=== PATIENT | male | born 1980 | race Two or more races ===

== ENCOUNTER 2019-09-07 20:40 | Emergency (ER) | payer SELFPAY ==
[~2019-09-07] VITALS: Ht 172.7 cm; Wt 81.6 kg
[2019-09-07 21:00] VITALS: BP 126/79
== END 2019-09-07 21:04 ==
LOC: ER 20:42
DX: F10.129 Alcohol abuse with intoxication, unspecified (principal); Y90.9 Presence of alcohol in blood, level not specified

== ENCOUNTER 2024-07-29 09:34 | Inpatient (IN) | payer MEDICAID ==
[~2024-07-29] VITALS: Ht 175.3 cm; Wt 64.6 kg
[~2024-07-29 09:34] MED LIST: INSU100I70 SC; INSU70IN3 SC
[2024-07-29] MEDS: InsuLIN REG 1unit/0.01ml Soln (100units/ml) IV ONE (10:15)
[2024-07-29] MEDS ORDERED: DEXTROSE (50%) 50ML SYRG IV PRN ×2 (10:15→17:00)
[2024-07-29] MEDS: SODIUM CHLORIDE 0.9% 1,000 ML IV ONE (10:26)
[2024-07-29] MEDS: ACCU-CHEK COMFORT CURVE STRIP VI SCH ×2 (10:30→18:26)
[2024-07-29] MEDS: PROCHLORPERAZINE EDISYLATE 5 MG/ML 2ML VIAL IV ONE (10:36)
[2024-07-29] MEDS: PANTOPRAZOLE 40 MG/10 ML VIAL INJ IV ONE ×2 (10:36→17:00)
[2024-07-29 10:45] VITALS: PULSE 96; RESP 17; O2SAT 100
[2024-07-29 10:55] LABS: Chloride 92 mmol/L (98-107); Sodium 128 mmol/L (136-145)
[2024-07-29 10:56] LABS: Anion Gap 26.00001 (5-15); Calcium 9.7 mg/dL (8.7-10.4)
[2024-07-29 11:01] LABS: BUN/Creatinine Ratio 9.2 (10.0-20.0); Blood Alcohol < 3.0 mg/dL (<10); Blood Urea Nitrogen 21 mg/dL (9-23)
[2024-07-29] MEDS: INSULIN LANTUS (GLARGINE) 1 /0.01ml (100units/ml) SC ONE (11:04)
[2024-07-29] MEDS: INSULIN DRIP 100 UNIT/100ML 100 ML IV SCH (11:04)
[2024-07-29 11:32] LABS: Hematocrit 54.4 % (41.0-53.0); Hemoglobin 16.5 g/dL (13.5-17.5); Mean Corpuscular Hemoglobin 30.9 pg (28.0-32.0); Mean Corpuscular Hgb Conc. 30.3 g/dL (32.0-36.0); Mean Corpuscular Volume 101.9 fL (80.0-100.0); Platelet Count (auto) 330 10^3/uL (140-450); Red Blood Cells 5.34 10^6/uL (4.5-5.90); Red Cell Distribution Width 15.2 % (11.8-14.3); White Blood Cell 26.3 10^3/uL (4.4-10.8)
[2024-07-29 11:35] LABS: Basophils % (manual) 0 (0.0-2.0); Blast Cells 0; Eosinophils % (manual) 0 (0-7); Metamyelocytes % 0; Myelocytes % 0; Promyelocytes % 0; Reactive Lymphocytes 0
[2024-07-29 11:46] LABS: Carbon Dioxide < 10 mmol/L (20-30); Potassium 5.6 mmol/L (3.5-5.1)
[2024-07-29 11:47] LABS: Glucose 727 mg/dL (74-106)
[2024-07-29 12:08] LABS: Band Neutrophils % (manual) 5; Lymphocytes % (manual) 20 (10.0-50.0); Monocytes % (manual) 7 (0-12); Platelet Estimate Adequate
[2024-07-29 16:13] LABS: Urine Bacteria None Seen /hpf (None Seen)
[2024-07-29 16:29] LABS: Urine Blood 1+ /uL (Negative); Urine Clarity Clear (Clear); Urine Color Light-Yellow (Yellow); Urine Mucus FEW (None Seen); Urine Protein, UAD 1+ (Negative); Urine Specific Gravity 1.018 (1.001-1.035); Urine Urobilinogen Normal (Negative); Urine WBC 5 /hpf (0 - 3)
[2024-07-29 16:35] LABS: Amphetamine Screen, Urine Neg (NEGATIVE); Barbiturate Scree,Urine Neg (NEGATIVE); Benzodiazephine Screen, Urine Neg (NEGATIVE); Cocaine Screen, Urine Neg (NEGATIVE)
[2024-07-29 16:37] LABS: Cannabinoid Screen, Urine Neg (NEGATIVE); Opiate Scree,Urine Neg (NEGATIVE); Phencyclidine Screen, Urine Neg (NEGATIVE)
[2024-07-29] MEDS: ONDANSETRON HCL 4 MG/2 ML VIAL IV ONE (16:41)
[2024-07-29] MEDS ORDERED: NITROGLYCERIN 0.4 MG SL TAB SL PRN (17:00)
[2024-07-29] MEDS ORDERED: MORPHINE SULFATE INJ 2 MG/ml SYRG IV PRN (17:00)
[2024-07-29] MEDS ORDERED: DOCUSATE SOD 100 MG CAP PO PRN (17:00)
[2024-07-29] MEDS ORDERED: TEMAZEPAM 15 MG CAP PO PRN (17:00)
[2024-07-29] MEDS: SODIUM CHLORIDE 0.9% 1,000 ML IV SCH ×3 (17:30→23:28)
[2024-07-29 17:42] LABS: Base Excess -14.8 mmol/L (-2.0-3.0)
[2024-07-29] MEDS: PIPERACILLIN-TAZOB 3.375GM 100 ML IV ONE (18:35)
[2024-07-29 19:15] LABS: Basophils # (auto) 0 10 ^3/uL (0-0.2); Basophils % (auto) 0.2 % (0.0-2.0); Eosinophils # (auto) 0 10 ^3/uL (0-0.8); Hematocrit 46.1 % (41.0-53.0); Hemoglobin 15.4 g/dL (13.5-17.5); Lymphocytes # (auto) 2.6 10 ^3/uL (0.4-5.4); Lymphocytes % (auto) 10.6 % (10.0-50.0); Mean Corpuscular Hemoglobin 30.5 pg (28.0-32.0); Mean Corpuscular Hgb Conc. 33.5 g/dL (32.0-36.0); Monocytes # (auto) 2.3 10 ^3/uL (0-1.3); Monocytes % (auto) 9.1 % (0.0-12.0); Neutrophils % (auto) 80.1 % (37.0-80.0); Platelet Count (auto) 288 10^3/uL (140-450); Red Blood Cells 5.06 10^6/uL (4.5-5.90); Red Cell Distribution Width 13.5 % (11.8-14.3); White Blood Cell 24.9 10^3/uL (4.4-10.8)
[2024-07-29 19:18] LABS: Anion Gap 18 (5-15); Carbon Dioxide 11 mmol/L (20-30); Potassium 4.2 mmol/L (3.5-5.1)
[2024-07-29 19:19] LABS: Calcium 9.5 mg/dL (8.7-10.4)
[2024-07-29 19:24] LABS: BUN/Creatinine Ratio 20.5 (10.0-20.0); Blood Alcohol < 3.0 mg/dL (<10); Magnesium 2.3 mg/dL (1.6-2.6)
[2024-07-29 19:26] LABS: Phosphorus 1.2 mg/dL (2.4-5.1)
[2024-07-29 19:33] LABS: Blood Urea Nitrogen 36 mg/dL (9-23); Chloride 107 mmol/L (98-107); Glucose 315 mg/dL (74-106); Sodium 136 mmol/L (136-145)
[2024-07-29] MEDS: FOLIC ACID 1 MG, MAGNESIUM SULF SDV 50% 8 MEQ, MULTIPLE VITAMIN 10 ML, THIAMINE INJ 100... INJ SCH (20:00)
[2024-07-29 20:05] LABS: Creatinine, Urine 34.85 mg/dL (30.0-125.0)
[2024-07-29] MEDS: ONDANSETRON HCL 4 MG/2 ML VIAL IV PRN (20:44)
[2024-07-29 20:45] VITALS: PULSE 130; RESP 18; O2SAT 96
[2024-07-29] MEDS: PANTOPRAZOLE 40 MG/10 ML VIAL INJ IV SCH (22:51)
[2024-07-29 23:29] LABS: Chloride 111 mmol/L (98-107); Potassium 4.3 mmol/L (3.5-5.1); Sodium 140 mmol/L (136-145)
[2024-07-29 23:30] LABS: Anion Gap 12 (5-15); Carbon Dioxide 17 mmol/L (20-30)
[2024-07-29 23:35] LABS: BUN/Creatinine Ratio 19.4 (10.0-20.0); Blood Urea Nitrogen 30 mg/dL (9-23); Glucose 237 mg/dL (74-106)
[2024-07-29] MEDS: PIPERACILLIN-TAZOB 3.375GM 100 ML IV SCH (23:56)
[2024-07-30 04:23] LABS: Basophils # (auto) 0 10 ^3/uL (0-0.2); Basophils % (auto) 0.2 % (0.0-2.0); Eosinophils # (auto) 0 10 ^3/uL (0-0.8); Eosinophils % (auto) 0.1 % (0.0-7.0); Hematocrit 43.7 % (41.0-53.0); Hemoglobin 14.5 g/dL (13.5-17.5); Lymphocytes # (auto) 1.8 10 ^3/uL (0.4-5.4); Lymphocytes % (auto) 9.6 % (10.0-50.0); Mean Corpuscular Hemoglobin 30.9 pg (28.0-32.0); Mean Corpuscular Hgb Conc. 33.1 g/dL (32.0-36.0); Mean Corpuscular Volume 93.2 fL (80.0-100.0); Neutrophils # (auto) 14.6 10 ^3/uL (1.6-8.6); Neutrophils % (auto) 79.1 % (37.0-80.0); Platelet Count (auto) 214 10^3/uL (140-450); Red Blood Cells 4.69 10^6/uL (4.5-5.90); Red Cell Distribution Width 13.8 % (11.8-14.3); White Blood Cell 18.4 10^3/uL (4.4-10.8)
[2024-07-30 04:37] LABS: Alanine Aminotransferase 56 U/L (7-40); Albumin 3.7 g/dL (3.2-4.8); Alkaline Phosphatase 111 U/L (46-116); Anion Gap 5 (5-15); Aspartate Aminotransferase 39 U/L (13-40); Bilirubin, Total 0.4 mg/dL (0.2-1.0); Blood Urea Nitrogen 27 mg/dL (9-23); Calcium 8.3 mg/dL (8.7-10.4); Carbon Dioxide 22 mmol/L (20-30); Chloride 116 mmol/L (98-107); Glucose 155 mg/dL (74-106); Potassium 4.2 mmol/L (3.5-5.1); Sodium 143 mmol/L (136-145); Total Protein 6.6 g/dL (5.7-8.2)
[2024-07-30 07:30] VITALS: PULSE 87; RESP 12; O2SAT 98
[2024-07-30] MEDS: InsuLIN REG 1unit/0.01ml Soln (100units/ml) SC SCH (08:00)
[2024-07-30] MEDS: ACCU-CHEK COMFORT CURVE STRIP VI SCH (08:06)
[2024-07-30] MEDS: INSULIN LANTUS (GLARGINE) 1 /0.01ml (100units/ml) SC SCH (11:03)
[2024-07-30 11:19] LABS: Chloride 115 mmol/L (98-107); Potassium 3.9 mmol/L (3.5-5.1); Sodium 144 mmol/L (136-145)
[2024-07-30 11:20] LABS: Anion Gap 8 (5-15); Calcium 8.8 mg/dL (8.7-10.4); Carbon Dioxide 21 mmol/L (20-30)
[2024-07-30 11:25] LABS: Glucose 156 mg/dL (74-106)
[2024-07-30 11:26] LABS: BUN/Creatinine Ratio 26.2 (10.0-20.0); Blood Urea Nitrogen 28 mg/dL (9-23)
[2024-07-30 12:09] LABS: INR 0.95 (0.9-1.15); Partial Thromboplastin Time 23.3 SEC (24.5-34.5); Prothrombin Time 10.1 sec (9.3-11.8)
[2024-07-30 15:29] LABS: Hematocrit 38.3 % (41.0-53.0); Hemoglobin 13.2 g/dL (13.5-17.5)
[2024-07-30 19:30] VITALS: PULSE 72; RESP 12; O2SAT 100
[2024-07-30 21:36] VITALS: BP 102/51; PULSE 75; TEMP 98.3; O2SAT 99
[2024-07-30] MEDS: SUCRALFATE 1 GM/10 ML ORAL SUSP PO SCH (22:55)
[2024-07-31] VITALS (9 sets, daily range): BP systolic 108–141; BP diastolic 61–85; PULSE 56–75; RESP 14–20; TEMP 97.7–98.6; O2SAT 97–98
[2024-07-31] MEDS ORDERED: NALOXONE HCL 0.4 MG/ML VIAL ONE (13:48)
[2024-07-31] MEDS ORDERED: FLUMAZENIL 0.1 MG/ML INJ 10ML MDV IV ONE (13:49)
[2024-07-31] MEDS ORDERED: fentaNYL CITRATE 100 MCG/2 ML VL ONE ×2 (13:50→13:51)
[2024-07-31] MEDS ORDERED: SIMETHICONE 40 MG/0.6 ML ORAL DROP ONE (13:52)
[2024-07-31] MEDS ORDERED: SODIUM CHLORIDE LOCK 10 ML ONE (13:52)
[2024-07-31] MEDS ORDERED: LIDOCAINE VISCOUS 2% 15ML UD ONE (13:52)
[2024-07-31] MEDS: MIDAZOLAM HCL 5 MG/ML-1ML VIAL ONE (14:02)
[2024-07-31] MEDS: fentaNYL CITRATE 100 MCG/2 ML VL ONE (14:02)
[2024-07-31] MEDS: diphenhdrAMINE HCL 50 MG/1 ML VL ONE (14:02)
[2024-07-31] MEDS: NYSTATIN (MOUTH-THROAT) 500,000 UNITS/5 ML SUSP MT SCH (18:00)
[2024-08-01] VITALS (8 sets, daily range): BP systolic 113–140; BP diastolic 63–87; PULSE 60–90; RESP 16–18; TEMP 98–99.2; O2SAT 97–99
[2024-08-01 06:48] LABS: Alanine Aminotransferase 38 U/L (7-40); Alkaline Phosphatase 86 U/L (46-116); Anion Gap 10 (5-15); BUN/Creatinine Ratio 16.1 (10.0-20.0); Calcium 7.9 mg/dL (8.7-10.4); Carbon Dioxide 21 mmol/L (20-30); Chloride 106 mmol/L (98-107); Glucose 203 mg/dL (74-106); Potassium 2.9 mmol/L (3.5-5.1); Sodium 137 mmol/L (136-145)
[2024-08-01 06:49] LABS: Aspartate Aminotransferase 44 U/L (13-40); Total Protein 5.2 g/dL (5.7-8.2)
[2024-08-01 06:50] LABS: Blood Urea Nitrogen 9 mg/dL (9-23)
[2024-08-01 07:07] LABS: Basophils # (auto) 0 10 ^3/uL (0-0.2); Basophils % (auto) 0.4 % (0.0-2.0); Eosinophils # (auto) 0.1 10 ^3/uL (0-0.8); Eosinophils % (auto) 1.6 % (0.0-7.0); Hematocrit 32.5 % (41.0-53.0); Hemoglobin 11.7 g/dL (13.5-17.5); Lymphocytes # (auto) 2.8 10 ^3/uL (0.4-5.4); Lymphocytes % (auto) 32.4 % (10.0-50.0); Mean Corpuscular Hemoglobin 32.2 pg (28.0-32.0); Mean Corpuscular Hgb Conc. 36.2 g/dL (32.0-36.0); Mean Corpuscular Volume 89.1 fL (80.0-100.0); Monocytes # (auto) 0.7 10 ^3/uL (0-1.3); Neutrophils # (auto) 4.9 10 ^3/uL (1.6-8.6); Neutrophils % (auto) 57.6 % (37.0-80.0); Platelet Count (auto) 150 10^3/uL (140-450); Red Blood Cells 3.64 10^6/uL (4.5-5.90); Red Cell Distribution Width 13.3 % (11.8-14.3); White Blood Cell 8.6 10^3/uL (4.4-10.8)
[2024-08-01] MEDS: POTASSIUM EFFERVESENT TAB 25 MEQ GT ONE (12:22)
[2024-08-01] MEDS: THIAMINE HCL 100 MG TAB PO ONE (18:32)
[2024-08-01] MEDS: FOLIC ACID 1 MG TAB PO ONE (18:32)
[2024-08-01] MEDS: MAGNESIUM OXIDE 400 MG TAB PO ONE (18:32)
[2024-08-01] MEDS: MULTIPLE VITAMIN TAB PO ONE (18:32)
[2024-08-02] VITALS (7 sets, daily range): BP systolic 109–127; BP diastolic 64–84; PULSE 55–63; RESP 15–20; TEMP 97.5–99.3; O2SAT 94–99
[2024-08-02 07:00] LABS: Basophils # (auto) 0 10 ^3/uL (0-0.2); Basophils % (auto) 0.7 % (0.0-2.0); Eosinophils # (auto) 0.2 10 ^3/uL (0-0.8); Eosinophils % (auto) 3.6 % (0.0-7.0); Hemoglobin 12.8 g/dL (13.5-17.5); Lymphocytes # (auto) 2.6 10 ^3/uL (0.4-5.4); Mean Corpuscular Hgb Conc. 34.6 g/dL (32.0-36.0); Mean Corpuscular Volume 89.5 fL (80.0-100.0); Monocytes # (auto) 0.7 10 ^3/uL (0-1.3); Monocytes % (auto) 9.9 % (0.0-12.0); Neutrophils # (auto) 3.1 10 ^3/uL (1.6-8.6); Neutrophils % (auto) 46.8 % (37.0-80.0); Nucleated Red Blood Cells % 0.1 %; Platelet Count (auto) 168 10^3/uL (140-450); Red Blood Cells 4.13 10^6/uL (4.5-5.90); Red Cell Distribution Width 13.3 % (11.8-14.3); White Blood Cell 6.7 10^3/uL (4.4-10.8)
[2024-08-02 07:25] LABS: Alanine Aminotransferase 33 U/L (7-40); Alkaline Phosphatase 87 U/L (46-116); Anion Gap 8 (5-15); Aspartate Aminotransferase 24 U/L (13-40); BUN/Creatinine Ratio 9.2 (10.0-20.0); Blood Urea Nitrogen 6 mg/dL (9-23); Calcium 8.5 mg/dL (8.7-10.4); Carbon Dioxide 27 mmol/L (20-30); Chloride 104 mmol/L (98-107); Glucose 206 mg/dL (74-106); Sodium 139 mmol/L (136-145)
[2024-08-02 07:26] LABS: Bilirubin, Total 1.1 mg/dL (0.2-1.0); Total Protein 5.5 g/dL (5.7-8.2)
[2024-08-02 10:14] LABS: Hepatitis B Surface Antigen Negative (Negative)
[2024-08-02 10:37] LABS: Hepatitis C Antibody Negative (Negative)
[2024-08-02] MEDS: MAGNESIUM OXIDE 400 MG TAB PO SCH (10:54)
[2024-08-02] MEDS: THIAMINE HCL 100 MG TAB PO SCH (10:54)
[2024-08-02] MEDS: MULTIPLE VITAMIN TAB PO SCH (10:54)
[2024-08-02] MEDS: FOLIC ACID 1 MG TAB PO SCH (10:54)
[2024-08-02] MEDS ORDERED: PANT40T PO (11:00)
[2024-08-02] MEDS ORDERED: FOLI-119 PO (11:00)
[2024-08-02] MEDS ORDERED: SUCR1TAB31 PO (11:00)
[2024-08-02] MEDS ORDERED: THIA100T13 PO (11:00)
[2024-08-02] MEDS: POTASSIUM EFFERVESENT TAB 25 MEQ PO ONE (14:13)
== END 2024-08-02 17:00 | disposition home or self-care (01) | DRG 720 ==
LOC: ER 09:42 → TELE 17:07 → TELE-EAST 07-30 21:36
PROVIDERS: ADMIT Nurse Practitioner Family; ATTEND Family Medicine
PROC: 0DB68ZX Excision of Stomach, Via Natural or Artificial Opening Endoscopic, Diagnostic (ICD-10-PCS; 2024-07-31)
PROC: 0DB38ZX Excision of Lower Esophagus, Via Natural or Artificial Opening Endoscopic, Diagnostic (ICD-10-PCS; 2024-07-31)
PROC: 0DB98ZX Excision of Duodenum, Via Natural or Artificial Opening Endoscopic, Diagnostic (ICD-10-PCS; principal; 2024-07-31 13:59)
DX: A41.9 Sepsis, unspecified organism (principal); E11.11 Type 2 diabetes mellitus with ketoacidosis with coma; J69.0 Pneumonitis due to inhalation of food and vomit; N17.9 Acute kidney failure, unspecified; K22.11 Ulcer of esophagus with bleeding; K29.71 Gastritis, unspecified, with bleeding; E87.6 Hypokalemia; E86.0 Dehydration; K44.9 Diaphragmatic hernia without obstruction or gangrene; F10.129 Alcohol abuse with intoxication, unspecified; K31.9 Disease of stomach and duodenum, unspecified; Z79.899 Other long term (current) drug therapy; Z79.4 Long term (current) use of insulin; Y90.0 Blood alcohol level of less than 20 mg/100 ml
CPT/HCPCS: 36415; 36600; 43239; 74176; 76700; 80048; 80053; 80307; 80320; 81001; 82010; 82140; 82570; 82607; 82805; 82962; 83036; 83605; 83735; 83930; 83935; 84100; 84300; 85007; 85014; 85018; 85025; 85027; 85610; 85730; 86803; 87340; 99291; G0378; J1815; J2250; J2405; J2470; J2543

== ENCOUNTER 2025-01-21 03:55 | Inpatient (IN) | payer MEDICAID ==
[2025-01-21] VITALS (10 sets, daily range): BP systolic 119–140; BP diastolic 69–89; PULSE 100–128; RESP 15–19; TEMP 98.9; O2SAT 94–100
[~2025-01-21] VITALS: Ht 205.7 cm; Wt 63.5 kg
[~2025-01-21 03:55] MED LIST changes: +FOLI-119 PO; +PANT40T PO; +SUCR1TAB31 PO; +THIA100T13 PO
--- NOTE | 2025-01-21 04:27 | ED.PDOC ---
History of Present Illness HPI Comments 44 y/o M, with a history of DM and DKA, is BIBA for c/o nausea, vomiting, and generalized weakness, today. Per EMS report, patient's family called on his behalf after endorsement of symptoms since 1200, yesterday. Patient was stated to have been found with a blood glucose of 596 and tachycardic on scene. He admits to using insulin to manage his DM, with last intake being yesterday. Patient denies having any abdominal pain, hematemesis, diarrhea, urinary symptoms, fever, chills, or other associated symptoms or modifiers at this time. Chief Complaint: Nausea/Vomiting Time Seen by MD: 04:00 Reviewed Notes: Nurses Notes, Medications, Allergies Allergies: Coded Allergies: No Known Drug Allergy (Unverified Allergy, Unknown, 08/05/23) Home Meds Active Scripts Folic Acid (Folic Acid) 1 Mg Tab, 1 MG PO DAILY, #30 TAB Prov:JOHNNA NAVARRO MD 08/02/24 Thiamine HCl (Thiamine Hydrochloride) 100 Mg Tab, 100 MG PO DAILY, #30 TAB Prov:JOHNNA NAVARRO MD 08/02/24 Sucralfate (CARAFATE) 1 Gm Tab, 1 GM PO QID, #120 TAB Prov:JOHNNA NAVARRO MD 08/02/24 Pantoprazole Sodium Sesquihydr (Pantoprazole Sodium) 40 Mg Tab, 40 MG PO BID, #60 TAB Prov:JOHNNA NAVARRO MD 08/02/24 Reported Medications Insulin Glargine-Yfgn (Insulin Glargine) 100 Unit/Ml Inj, 16 UNIT SC HS, INJ 08/09/23 Insulin NPH Isophane & Reg (Hu (Novolin 70/30 (70-30) 100 Unit/ml) 1 Inj Inj, 10 UNIT SC BID, INJ 08/09/23 Information Source: Patient, Emergency Med Personnel Mode of Arrival: EMS Severity: Moderate Timing: Hours Duration: Since onset Prehospital treatment: 12 Lead EKG, [employer] Person Past Medical History PAST MEDICAL HISTORY: DM Past Medical History (Other): DKA Surgical History: Denies all surgeries Family History Family History: Unknown Social History Smoker: Non-Smoker Alcohol: Heavy Drugs: Denies Drug Use Lives In: Home Gastrointestinal: reports: nausea, vomiting Neurological: reports: weakness All Other Systems: Reviewed and Negative (negative unless otherwise stated above or in HPI) Physical Exam General Appearance: Mild Distress, Normal HEENT: Normal ENT Inspection, Pharynx Normal, TMs Normal Neck: Full Range of Motion, Non-Tender, Normal, Normal Inspection Respiratory: Chest Non-Tender, Lungs Clear, No Accessory Muscle Use, No Respiratory Distress, Normal Breath Sounds Cardiovascular: No Edema, No JVD, No Murmur, No Gallop, Normal Peripheral Pulses, Regular Rate/Rhythm Breast Exam: Deferred Gastrointestinal: No Organomegaly, Non Tender, No Pulsatile Mass, Normal Bowel Sounds, Soft Genitalia: Deferred Pelvic: Deferred Rectal: Deferred Extremities: No calf tenderness, Normal capillary refill, Normal inspection, Normal range of motion, Non-tender, No pedal edema Musculoskeletal : Apperance: Normal Neurologic: Alert, student development advisor II-XII nml as Tested, No Motor Deficits, Normal Affect, Normal Mood, No Sensory Deficits Cerebellar Function: Normal Reflexes: Normal Skin: Dry, Normal Color, Warm Lymphatic: No Adenopathy Was a procedure done? Was a procedure done?: No Differential Dx Considerations may include: hyperglycemia, inappropriate medication dosage, gastroenteritis, gastritis X-Ray, Labs, Meds, VS Vital Signs Date Time Temp Pulse Resp B/P (MAP) Pulse Ox O2 Delivery O2 Flow Rate FiO2 01/21/25 05:00 123 19 99 Room Air* 0 21 01/21/25 04:15 98.9 120 18 120/64 (82) 99 98.9 01/21/25 03:55 98.9 124 20 126/71 (89) 99 Lab Test 01/21/25 04:50 01/21/25 04:37 01/21/25 04:16 Range/Units Blood Gas Specimen Type Arterial Blood Gas Sample Site Right radial Blood Gas Patient Temperature 37.0 Arterial Blood Date Drawn [id number] Arterial Blood pH 7.186 *L 7.350-7.450 Arterial Blood Partial Pressure CO2 17.4 *L 35.0-48.0 mmHg Arterial Blood Partial Pressure O2 85.7 83.0-108.0 mmHg Arterial Blood HCO3 6.4 L 21.0-28.0 mmol/L Arterial Blood Oxygen Saturation 96.2 94.0-98.0 % Arterial Blood Base Excess -19.1 L -2.0-3.0 mmol/L Arterial Blood Oxyhemoglobin 95.0 94.0-98.0 % Arterial Blood Carboxyhemoglobin 0.6 0.5-1.5 % Arterial Blood Methemoglobin 0.6 0.0-1.5 % Walker Test Yes Blood Gas Total Hemoglobin 17.70 H 13.5-17.5 g/dL Blood Gas Modality Room air FiO2 % 21.0 Blood Gas Critical Value Read Back Yes Blood Gas Notified Whom Frank le md Blood Gas Notified Time [id number] Blood Gas Notified By Ryan gerber rrt White Blood Count 25.7 H 4.4-10.8 10^3/uL Red Blood Count 5.76 4.5-5.90 10^6/uL Hemoglobin 17.4 13.5-17.5 g/dL Hematocrit 52.8 41.0-53.0 % Mean Corpuscular Volume 91.6 80.0-100.0 fL Mean Corpuscular Hemoglobin 30.1 28.0-32.0 pg Mean Corpuscular Hemoglobin Concent 32.9 32.0-36.0 g/dL Red Cell Distribution Width 13.7 11.8-14.3 % Platelet Count 325 140-450 10^3/uL Mean Platelet Volume 8.6 6.9-10.8 fL Neutrophils (%) (Auto) 37.0-80.0 % Lymphocytes (%) (Auto) 10.0-50.0 % Monocytes (%) (Auto) 0.0-12.0 % Basophils (%) (Auto) 0.0-2.0 % Neutrophils # (Auto) 1.6-8.6 10 ^3/uL Lymphocytes # (Auto) 0.4-5.4 10 ^3/uL Monocytes # (Auto) 0-1.3 10 ^3/uL Differential Total Cells Counted Pending Neutrophils % (Manual) Pending Band Neutrophils % (Manual) Pending Lymphocytes % (Manual) Pending Monocytes % (Manual) Pending Eosinophils % (Manual) Pending Basophils % (Manual) Pending Metamyelocytes % (manual) Pending Myelocytes % (Manual) Pending Promyelocytes % (Manual) Pending Blast Cells % (Manual) Pending Reactive Lymphocytes Pending Platelet Estimate Pending Prothrombin Time 10.4 9.3-11.8 sec Prothrombin Time INR 0.98 0.9-1.15 Activated Partial Thromboplast Time 25.0 24.5-34.5 SEC Sodium Level 132 L 136-145 mmol/L Potassium Level 5.3 H 3.5-5.1 mmol/L Chloride Level 87 L 98-107 mmol/L Carbon Dioxide Level < 10 *L 20-31 mmol/L Anion Gap 35.76836 H 5-15 Blood Urea Nitrogen 38 H 9-23 mg/dL Creatinine 2.28 H 0.700-1.30 mg/dL Glomerular Filtration Rate Calc 36 >90 mL/min BUN/Creatinine Ratio 16.7 10.0-20.0 Serum Glucose 685 *H 74-106 mg/dL Serum Osmolality Pending Calcium Level 10.0 8.7-10.4 mg/dL Phosphorus Level 8.7 H 2.4-5.1 mg/dL Magnesium Level 2.4 1.6-2.6 mg/dL Total Bilirubin 0.5 0.2-1.0 mg/dL Aspartate Amino Transferase (AST) 40 13-40 U/L Alanine Aminotransferase (ALT) 48 H 7-40 U/L Alkaline Phosphatase 114 46-116 U/L Total Protein 9.0 H 5.7-8.2 g/dL Albumin 5.4 H 3.2-4.8 g/dL Beta-Hydroxybutyric Acid > 4.500 H < 0.4 mmol/L POC Glucose 587 *H 70-106 mg/dl Current Medications Medications (Trade) Dose Ordered Sig/Anitha Route Start Time Stop Time Status Last Admin Sodium Chloride 1,000 ml @ 1,000 mls/hr Q1H ONCE IV 01/21/25 04:15 01/21/25 05:14 DC 01/21/25 04:48 Ondansetron HCl (Zofran) 4 mg ONCE ONCE IV 01/21/25 04:15 01/21/25 04:16 DC 01/21/25 04:53 Insulin Human Regular (InsuLIN R) 4 units ONCE ONCE IV 01/21/25 04:15 01/21/25 04:16 DC 01/21/25 04:52 Sodium Chloride 1,000 ml @ 1,000 mls/hr Q1H ONCE IV 01/21/25 05:15 01/21/25 06:14 01/21/25 05:30 Time of 1ST Reevaluation: 04:30 Reevaluation 1ST: Unchanged Patient Education/Counseling: Diagnosis, Treatment Family Education/Counseling: No Family Present Departure 1 Departure Time of Disposition: 05:53 Impression: Primary Impression: DKA (diabetic ketoacidosis) Additional Impressions: Intractable vomiting Dehydration Disposition: ADMITTED INPATIENT Admit to: ICU Condition: Critical Discharged With: Self Comments DKA with Hyperglycemia Chief Complaint: Nausea and vomiting x 2 days History of Present Illness: 44-year-old male with history of type 1 diabetes presents with nausea and vomiting for the past two days. Patient reports missing his insulin dose today, though took some yesterday. He checked his blood sugar at home which was reportedly in the 600s. Initial evaluation in the ED confirms diabetic ketoacidosis with severe hyperglycemia and metabolic acidosis. 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 Problem List: 1. Diabetic Ketoacidosis, 2. Severe Hyperglycemia, 3. Leukocytosis, 4. Electrolyte Abnormalities Differential Diagnosis: 1. DKA due to medication non-compliance, 2. Infection triggering DKA, 3. Other precipitating factors for DKA ED Course: Patient received aggressive fluid resuscitation, 4 units insulin bolus followed by insulin infusion. Serial chemistry panels and glucose checks ordered. Decision made for ICU admission. Assessment and Plan: 1. Diabetic Ketoacidosis: - Admit to ICU for close monitoring - Continue insulin drip with hourly glucose checks - Serial basic metabolic panels - Fluid resuscitation 2. Leukocytosis: - Monitor for signs of underlying infection - Continue workup as indicated 3. Electrolyte Abnormalities: - Close monitoring and replacement as needed - Serial chemistry panels to track improvements Billing Information: ICD-10: E11.11 - Type 1 diabetes mellitus with ketoacidosis ICD-10: E87.2 - Acidosis ICD-10: R11.2 - Nausea with vomiting Critical Care Note Critical Care Time?: Yes (45 min-critical care time only) Critical care comment: Total critical care time: Approximately 36 minutes Due to a high probability of clinically significant, life threatening deterioration, the patient required my highest level of preparedness to intervene emergently and I personally spent this critical care time directly and personally managing the patient. This critical care time included obtaining a history; examining the patient; pulse oximetry; ordering and review of studies; arranging urgent treatment with development of a management plan; evaluation of patient's response to treatment; frequent reassessment; and, discussions with other providers. This critical care time was performed to assess and manage the high probability of imminent, life-threatening deterioration that could result in multi-organ failure. It was exclusive of separately billable procedures and treating other patients. Stability Stability form required: No Heart Score Heart Score: Heart Score Response (Comments) Value History N/A 0 EKG N/A 0 Age N/A 0 Risk Factors N/A 0 Troponin N/A 0 Total 0 I personally scribed for BERENICE LE MD ([email or web address]) on 01/21/25 at 04:27. Electronically submitted by Jamal Kuhn ([email or web address]). BERENICE LE MD Jan 21, 2025 04:27
[2025-01-21] MEDS: SODIUM CHLORIDE 0.9% 1,000 ML IV ONE ×2 (04:48→05:30)
[2025-01-21] MEDS: InsuLIN REG 1unit/0.01ml Soln (100units/ml) IV ONE (04:52)
[2025-01-21] MEDS: ONDANSETRON HCL 4 MG/2 ML VIAL IV ONE (04:53)
[2025-01-21 05:00] LABS: Base Excess -19.1 mmol/L (-2.0-3.0)
[2025-01-21 05:03] LABS: Hematocrit 52.8 % (41.0-53.0); Hemoglobin 17.4 g/dL (13.5-17.5); Mean Corpuscular Hemoglobin 30.1 pg (28.0-32.0); Mean Corpuscular Hgb Conc. 32.9 g/dL (32.0-36.0); Mean Corpuscular Volume 91.6 fL (80.0-100.0); Platelet Count (auto) 325 10^3/uL (140-450); Red Blood Cells 5.76 10^6/uL (4.5-5.90); Red Cell Distribution Width 13.7 % (11.8-14.3); White Blood Cell 25.7 10^3/uL (4.4-10.8)
[2025-01-21 05:06] LABS: Basophils % (manual) 0 (0.0-2.0); Blast Cells 0; Eosinophils % (manual) 0 (0-7); Metamyelocytes % 0; Myelocytes % 0; Promyelocytes % 0; Reactive Lymphocytes 0
[2025-01-21 05:09] LABS: Alkaline Phosphatase 114 U/L (46-116); Anion Gap 35.00001 (5-15); BUN/Creatinine Ratio 16.7 (10.0-20.0); Bilirubin, Total 0.5 mg/dL (0.2-1.0); Magnesium 2.4 mg/dL (1.6-2.6)
[2025-01-21 05:11] LABS: INR 0.98 (0.9-1.15); Prothrombin Time 10.4 sec (9.3-11.8)
[2025-01-21 05:13] LABS: Alanine Aminotransferase 48 U/L (7-40); Albumin 5.4 g/dL (3.2-4.8); Aspartate Aminotransferase 40 U/L (13-40); Blood Urea Nitrogen 38 mg/dL (9-23); Chloride 87 mmol/L (98-107); Potassium 5.3 mmol/L (3.5-5.1); Sodium 132 mmol/L (136-145)
[2025-01-21 05:15] LABS: Carbon Dioxide < 10 mmol/L (20-31); Glucose 685 mg/dL (74-106)
[2025-01-21] MEDS ORDERED: DEXTROSE (50%) 50ML SYRG IV PRN (05:15)
--- NOTE | 2025-01-21 05:49 | DVH ---
EXAM: XR Chest, 1 View CLINICAL INDICATION: SOB TECHNIQUE: Frontal view of the chest. COMPARISON: None FINDINGS: LUNGS AND PLEURAL SPACES: Unremarkable. No consolidation. No pneumothorax. HEART: Unremarkable. No cardiomegaly. MEDIASTINUM: Unremarkable. Normal mediastinal contour. BONES/JOINTS: Unremarkable. No acute fracture. OTHER FINDINGS: . None. IMPRESSION: No acute cardiopulmonary process.
[2025-01-21] MEDS: INSULIN DRIP 100 UNIT/100ML 100 ML IV SCH (06:09)
[2025-01-21] MEDS: ACCU-CHEK COMFORT CURVE STRIP VI SCH (06:10)
[2025-01-21 06:27] LABS: Band Neutrophils % (manual) 2; Lymphocytes % (manual) 12 (10.0-50.0); Monocytes % (manual) 5 (0-12); Platelet Estimate Adequate
[2025-01-21] MEDS ORDERED: ACETAMINOPHEN 325 MG TAB PO PRN (07:45)
[2025-01-21] MEDS ORDERED: NITROGLYCERIN 0.4 MG SL TAB SL PRN (07:45)
[2025-01-21] MEDS ORDERED: DOCUSATE SOD 100 MG CAP PO PRN (07:45)
--- NOTE | 2025-01-21 08:20 | DVHHP2 ---
History of Present Illness Reason for Visit: Nausea/vomiting History of Present Illness Tommy Chavez is a 44-year-old male with past medical history of diabetes, and GERD, who came to the hospital for nausea, vomiting, generalized weakness. Patient states his symptoms began on Tuesday around noon, and continued to worsen prompting his family to call EMS. When EMS arrived blood sugar was almost 600. Patient takes insulin to control his diabetes, he states that he took his insulin on Tuesday. GI: GERD Endocrine: Diabetes Past Surgical History: None Smoke: <1 pack per day ALCOHOL: rare Drugs: None Lives: with Family Domestic Violence: Neg Review of Systems Constitutional: No: Fever, Chills, Sweats, Weakness, Malaise, Other Eyes: No: Pain, Vision change, Conjunctivae inflammation, Eyelid inflammation, Other, Redness ENT: No: Ear pain, Ear discharge, Nose pain, Nose discharge, Nose congestion, Mouth pain, Mouth swelling, Throat pain, Throat swelling, Other Respiratory: No: Cough, Dry, Shortness of breath, SOB with excertion, Wheezing, Hemoptysis, Pleuritic Pain, Sputum, Wheezing, Other Cardiovascular: No: Chest Pain, Palpitations, Orthopnea, Paroxysmal Noc. Dyspnea, Edema, Lt Headedness, Other Gastrointestinal: Nausea, Vomiting, Abdominal Pain; No: Diarrhea, Constipation, Melena, Hematochezia, Other Genitourinary: No Dysuria, No Frequency, No Incontinence, No Hematuria, No Retention, No Other Musculoskeletal: No: other, neck pain, shoulder pain, arm pain, back pain, hand pain, leg pain, foot pain Skin: No: Rash, Lesions, Jaundice, Bruising, Other Neurological: No: Weakness, Numbness, Incoordination, Change in speech, Confusion, Seizures, Other Allergies: Coded Allergies: No Known Drug Allergy (Unverified Allergy, Unknown, 08/05/23) Medications Current Medications Medications Dose Ordered Sig/Anitha Route Start Time Stop Time Status Last Admin Dose Admin Sodium Chloride 1,000 ml @ 250 mls/hr Q4H IV 01/21/25 09:15 01/21/25 11:14 Insulin Human (Reg)/Sodium Chloride 100 ml @ 0.5 mls/hr Q24H IV 01/21/25 05:15 01/21/25 06:09 6 MLS/HR Dextrose 50 ml UD PRN IV 01/21/25 05:15 Diagnostic Test (Pha) 1 strip Q90MIN 01/21/25 06:00 01/21/25 06:10 1 STRIP Acetaminophen/ Hydrocodone Bitart 1 tab Q4HP PRN PO 01/21/25 07:45 UNV Ondansetron HCl 4 mg Q4HP PRN IV 01/21/25 07:45 UNV Docusate Sodium 100 mg BIDPRN PRN PO 01/21/25 07:45 UNV Acetaminophen 650 mg Q6HP PRN PO 01/21/25 07:45 UNV Nitroglycerin 0.4 mg Q5MINP PRN SL 01/21/25 07:45 UNV Morphine Sulfate 2 mg Q30M PRN IV 01/21/25 07:45 UNV Exam Vital Signs Vital Signs Date Time Temp Pulse Resp B/P (MAP) Pulse Ox O2 Delivery O2 Flow Rate FiO2 01/21/25 05:00 123 19 99 Room Air* 0 21 01/21/25 04:15 98.9 120/64 (82) 98.9 General Appearance: Alert, Oriented X3, Cooperative, moderate distress HEENT: Atraumatic, PERRLA Respiratory: Clear to auscultation Cardiovascular: Normal S1, Normal S2, Other (Tachycardia) Abdominal: Normal bowel sounds, Soft, Other (nausea/vomiting) Extremities: No clubbing, No cyanosis, No edema Skin: No rashes, No breakdown, No significant lesion Neuro: Normal gait, Normal speech, Strength at 5/5 X4 ext Psych/Mental Status: Mental status NL, Mood NL Labs/Xrays Labs Test 01/21/25 05:44 01/21/25 04:50 01/21/25 04:37 Range/Units POC Glucose > 600 *H 70-106 mg/dl Blood Gas Specimen Type Arterial Blood Gas Sample Site Right radial Blood Gas Patient Temperature 37.0 Arterial Blood Date Drawn [id number] Arterial Blood pH 7.186 *L 7.350-7.450 Arterial Blood Partial Pressure CO2 17.4 *L 35.0-48.0 mmHg Arterial Blood Partial Pressure O2 85.7 83.0-108.0 mmHg Arterial Blood HCO3 6.4 L 21.0-28.0 mmol/L Arterial Blood Oxygen Saturation 96.2 94.0-98.0 % Arterial Blood Base Excess -19.1 L -2.0-3.0 mmol/L Arterial Blood Oxyhemoglobin 95.0 94.0-98.0 % Arterial Blood Carboxyhemoglobin 0.6 0.5-1.5 % Arterial Blood Methemoglobin 0.6 0.0-1.5 % Walker Test Yes Blood Gas Total Hemoglobin 17.70 H 13.5-17.5 g/dL Blood Gas Modality Room air FiO2 % 21.0 Blood Gas Critical Value Read Back Yes Blood Gas Notified Whom Frank roy md Blood Gas Notified Time [id number] Blood Gas Notified By Ryan gerber rrt White Blood Count 25.7 H 4.4-10.8 10^3/uL Red Blood Count 5.76 4.5-5.90 10^6/uL Hemoglobin 17.4 13.5-17.5 g/dL Hematocrit 52.8 41.0-53.0 % Mean Corpuscular Volume 91.6 80.0-100.0 fL Mean Corpuscular Hemoglobin 30.1 28.0-32.0 pg Mean Corpuscular Hemoglobin Concent 32.9 32.0-36.0 g/dL Red Cell Distribution Width 13.7 11.8-14.3 % Platelet Count 325 140-450 10^3/uL Mean Platelet Volume 8.6 6.9-10.8 fL Neutrophils (%) (Auto) 37.0-80.0 % Lymphocytes (%) (Auto) 10.0-50.0 % Monocytes (%) (Auto) 0.0-12.0 % Basophils (%) (Auto) 0.0-2.0 % Neutrophils # (Auto) 1.6-8.6 10 ^3/uL Lymphocytes # (Auto) 0.4-5.4 10 ^3/uL Monocytes # (Auto) 0-1.3 10 ^3/uL Differential Total Cells Counted 100.0 100 Neutrophils % (Manual) 81 H 37.0-80.0 Band Neutrophils % (Manual) 2 Lymphocytes % (Manual) 12 10.0-50.0 Monocytes % (Manual) 5 0-12 Eosinophils % (Manual) 0 0-7 Basophils % (Manual) 0 0.0-2.0 Metamyelocytes % (manual) 0 Myelocytes % (Manual) 0 Promyelocytes % (Manual) 0 Blast Cells % (Manual) 0 Reactive Lymphocytes 0 Platelet Estimate Adequate Prothrombin Time 10.4 9.3-11.8 sec Prothrombin Time INR 0.98 0.9-1.15 Activated Partial Thromboplast Time 25.0 24.5-34.5 SEC Sodium Level 132 L 136-145 mmol/L Potassium Level 5.3 H 3.5-5.1 mmol/L Chloride Level 87 L 98-107 mmol/L Carbon Dioxide Level < 10 *L 20-31 mmol/L Anion Gap 35.98106 H 5-15 Blood Urea Nitrogen 38 H 9-23 mg/dL Creatinine 2.28 H 0.700-1.30 mg/dL Glomerular Filtration Rate Calc 36 >90 mL/min BUN/Creatinine Ratio 16.7 10.0-20.0 Serum Glucose 685 *H 74-106 mg/dL Serum Osmolality 356 H 278-298 mOsm/kg Calcium Level 10.0 8.7-10.4 mg/dL Phosphorus Level 8.7 H 2.4-5.1 mg/dL Magnesium Level 2.4 1.6-2.6 mg/dL Total Bilirubin 0.5 0.2-1.0 mg/dL Aspartate Amino Transferase (AST) 40 13-40 U/L Alanine Aminotransferase (ALT) 48 H 7-40 U/L Alkaline Phosphatase 114 46-116 U/L Total Protein 9.0 H 5.7-8.2 g/dL Albumin 5.4 H 3.2-4.8 g/dL Beta-Hydroxybutyric Acid > 4.500 H < 0.4 mmol/L EXAM: XR Chest, 1 View FINDINGS: LUNGS AND PLEURAL SPACES: Unremarkable. No consolidation. No pneumothorax. HEART: Unremarkable. No cardiomegaly. MEDIASTINUM: Unremarkable. Normal mediastinal contour. BONES/JOINTS: Unremarkable. No acute fracture. OTHER FINDINGS: . None. IMPRESSION: No acute cardiopulmonary process. Assessment/Plan Assessment/Plan Assessment: DKA (diabetic ketoacidosis), Acute kidney injury, Metabolic acidosis, Plan: Admit to ICU, IV hydration, IV insulin drip, BMP Q 6 hours, Manage/Monitor electrolytes closely, NPO, Consider nephrology consult if renal function does not improve, Home medications reconciled, Plan discussed with: Patient My Orders Orders - JIMMIE KIRK Procedure Category Date Status Time Admit ADMIT 01/21/25 Transmitted 07:31 Code Status CODE 01/21/25 Transmitted 07:31 Hydrocodone-Acet PHA 01/21/25 Logged 5/325mg Tab ([place] 07:45 Ondansetron Hcl PHA 01/21/25 Logged (Zofran) 07:45 Docusate Sodium PHA 01/21/25 Logged Capsule (Colace 07:45 Complete Blood Count LAB 01/22/25 Verified 04:00 Comprehensive LAB 01/22/25 Verified Metabolic Panel 04:00 Npo (Nothing By DIET 01/21/25 Transmitted Mouth) Diet Breakfast Condition: Critical [place] 01/21/25 In Process 07:31 Acetaminophen Tablet PHA 01/21/25 Logged (Tylenol Tablet) 07:45 Nitroglycerin PHA 01/21/25 Logged Sublingual (Ntrostat 07:45 Morphine Sulfate PHA 01/21/25 Logged Injection 07:45 Stat Ekg For Chest [place] 01/21/25 In Process Pain 07:31 Notify Md Of Changes [facility] 01/21/25 In Process From Base 07:31 Marine Extension Agent For [facility] 01/21/25 In Process 24 Hours 07:31 Emergency Dysrhythmia [facility] 01/21/25 In Process Protocol 07:31 Rhythm Strips Once [facility] 01/21/25 In Process Every Shift 07:31 Oxygen By Nasal RT 01/21/25 Transmitted Cannula 07:31 Insulin Lantus PHA 01/22/25 Verified (Glargine) (Lantus) 07:00 Insulin Lantus PHA 01/21/25 Verified (Glargine) (Lantus) 07:45 Date of Service: Jan 21, 2025 Billing Provider: JIMMIE KIRK Common Visit Codes: [id number] INP/OBS CARE (HIGH) JIMMIE KIRK Jan 21, 2025 08:20
[2025-01-21] MEDS: INSULIN LANTUS (GLARGINE) 1 /0.01ml (100units/ml) SC ONE (08:46)
[2025-01-21] MEDS: SODIUM CHLORIDE 0.9% 1,000 ML IV SCH (09:30)
[2025-01-21 09:39] LABS: Urine Bacteria None Seen /hpf (None Seen)
[2025-01-21 09:52] LABS: Urine Blood 1+ /uL (Negative); Urine Clarity Clear (Clear); Urine Color Light-Yellow (Yellow); Urine Hyaline Cast FEW /lpf (0 - 2); Urine Protein, UAD TRACE (Negative); Urine Specific Gravity 1.022 (1.001-1.035); Urine Squamous Epithelial Cell FEW /hpf (<5); Urine Urobilinogen Normal (Negative); Urine WBC 1 /HPF (0-3)
[2025-01-21 12:04] LABS: Anion Gap 21 (5-15); Calcium 9.5 mg/dL (8.7-10.4)
[2025-01-21 12:09] LABS: BUN/Creatinine Ratio 17.6 (10.0-20.0)
[2025-01-21 12:11] LABS: Blood Urea Nitrogen 32 mg/dL (9-23); Carbon Dioxide 17 mmol/L (20-31); Chloride 104 mmol/L (98-107); Glucose 280 mg/dL (74-106); Potassium 3.6 mmol/L (3.5-5.1); Sodium 142 mmol/L (136-145)
[2025-01-21] MEDS: POTASSIUM CHL 20MEQ/100ML 100 ML IV SCH (12:39)
[2025-01-21] MEDS: POTASSIUM CHLORIDE 20 MEQ in SODIUM CHLORIDE 0.9% 1,000 ML IV SCH (16:35)
[2025-01-21 16:40] LABS: Anion Gap 14 (5-15); Carbon Dioxide 21 mmol/L (20-31); Potassium 4.3 mmol/L (3.5-5.1)
[2025-01-21 16:41] LABS: Calcium 9.7 mg/dL (8.7-10.4)
[2025-01-21] MEDS: ONDANSETRON HCL 4 MG/2 ML VIAL IV PRN (16:43)
[2025-01-21] MEDS: MORPHINE SULFATE INJ 2 MG/ml SYRG IV PRN (16:44)
[2025-01-21 16:46] LABS: BUN/Creatinine Ratio 24.8 (10.0-20.0)
[2025-01-21 17:01] LABS: Blood Urea Nitrogen 34 mg/dL (9-23); Chloride 111 mmol/L (98-107); Glucose 210 mg/dL (74-106); Sodium 146 mmol/L (136-145)
[2025-01-21 22:26] LABS: Potassium 4.2 mmol/L (3.5-5.1)
[2025-01-21 22:27] LABS: Anion Gap 12 (5-15); Calcium 9.1 mg/dL (8.7-10.4); Carbon Dioxide 24 mmol/L (20-31)
[2025-01-21 22:29] LABS: Chloride 113 mmol/L (98-107); Sodium 149 mmol/L (136-145)
[2025-01-21 22:32] LABS: BUN/Creatinine Ratio 26.5 (10.0-20.0)
[2025-01-21 22:33] LABS: Blood Urea Nitrogen 36 mg/dL (9-23); Glucose 138 mg/dL (74-106)
[2025-01-22] VITALS (8 sets, daily range): BP systolic 109–136; BP diastolic 68–102; PULSE 64–117; RESP 15–22; TEMP 98.5–99.1; O2SAT 90–100
[2025-01-22] MEDS ORDERED: DEXTROSE (50%) 50ML SYRG IV PRN (00:30)
[2025-01-22] MEDS: ACCU-CHEK COMFORT CURVE STRIP VI SCH (04:46)
[2025-01-22] MEDS: InsuLIN REG 1unit/0.01ml Soln (100units/ml) SC SCH (04:50)
[2025-01-22 07:17] LABS: Basophils # (auto) 0 10 ^3/uL (0-0.2); Basophils % (auto) 0.2 % (0.0-2.0); Eosinophils # (auto) 0 10 ^3/uL (0-0.8); Eosinophils % (auto) 0.1 % (0.0-7.0); Hematocrit 46.6 % (41.0-53.0); Hemoglobin 15.6 g/dL (13.5-17.5); Lymphocytes # (auto) 1.1 10 ^3/uL (0.4-5.4); Lymphocytes % (auto) 6.6 % (10.0-50.0); Mean Corpuscular Hemoglobin 29.6 pg (28.0-32.0); Mean Corpuscular Hgb Conc. 33.5 g/dL (32.0-36.0); Mean Corpuscular Volume 88.5 fL (80.0-100.0); Monocytes # (auto) 1.2 10 ^3/uL (0-1.3); Monocytes % (auto) 6.7 % (0.0-12.0); Neutrophils # (auto) 15.1 10 ^3/uL (1.6-8.6); Neutrophils % (auto) 86.4 % (37.0-80.0); Platelet Count (auto) 238 10^3/uL (140-450); Red Blood Cells 5.26 10^6/uL (4.5-5.90); Red Cell Distribution Width 13.5 % (11.8-14.3); White Blood Cell 17.4 10^3/uL (4.4-10.8)
[2025-01-22 07:24] LABS: Alanine Aminotransferase 36 U/L (7-40); Alkaline Phosphatase 95 U/L (46-116); Anion Gap 15 (5-15); Calcium 9.3 mg/dL (8.7-10.4); Carbon Dioxide 21 mmol/L (20-31); Potassium 3.8 mmol/L (3.5-5.1)
[2025-01-22 07:25] LABS: Albumin 4.4 g/dL (3.2-4.8); Aspartate Aminotransferase 23 U/L (13-40); Bilirubin, Total 0.5 mg/dL (0.2-1.0); Total Protein 7.3 g/dL (5.7-8.2)
[2025-01-22 07:36] LABS: Blood Urea Nitrogen 35 mg/dL (9-23); Chloride 109 mmol/L (98-107); Glucose 251 mg/dL (74-106); Sodium 145 mmol/L (136-145)
[2025-01-22] MEDS: INSULIN LANTUS (GLARGINE) 1 /0.01ml (100units/ml) SC SCH (07:46)
[2025-01-22] MEDS: HYDROcodone-ACET 5/325MG TAB PO PRN (08:17)
[2025-01-22] MEDS: METOCLOPRAMIDE HCL 5MG/ml INJ 2ml VIAL IV PRN (08:18)
--- NOTE | 2025-01-22 18:40 | DVHPN2 ---
Subjective Seen and examined at bedside, blood glucose improving. C/o abdominal pain. Had EGD recently with eschar necrosis. Discussed with patient and spouse about risks of uncontrolled DM and possible gastroparesis. Changes from previous H/P or p: No Changes Eyes: No Pain, No Vision change, No Conjunctivae inflammation, No Eyelid inflammation, No Other, No Redness ENT: No Ear pain, No Ear discharge, No Nose pain, No Nose discharge, No Nose congestion, No Mouth pain, No Mouth swelling, No Throat pain, No Throat swelling, No Other Cardiovascular: No Chest Pain, No Palpitations, No Orthopnea, No Paroxysmal Noc. Dyspnea, No Edema, No Lt Headedness, No Other Respiratory: No Cough, No Dry, No Shortness of breath, No SOB with excertion, No Wheezing, No Hemoptysis, No Pleuritic Pain, No Sputum, No Other Gastrointestinal: No Nausea, No Vomiting, No Abdominal Pain, No Diarrhea, No Constipation, No Melena, No Hematochezia, No Other Genitourinary: No Dysuria, No Frequency, No Incontinence, No Hematuria, No Retention, No Other Musculoskeletal: No other, No neck pain, No shoulder pain, No arm pain, No back pain, No hand pain, No leg pain, No foot pain Skin: No Rash, No Lesions, No Jaundice, No Bruising, No Other Objective Vitals Vital Signs Date Time Temp Pulse Resp B/P (MAP) Pulse Ox O2 Delivery O2 Flow Rate FiO2 01/22/25 14:00 98.7 89 16 120/74 (89) 97 98.7 01/22/25 08:29 Room Air* 0 21 Intake/Output Intake and Output 01/22/25 07:00 Intake Total 507 ml Output Total 700 ml Balance -193 ml Intake IV Total 507 ml Output Urine Total 700 ml # Voids 1 General Appearance: Alert, Oriented X3, Cooperative, No acute distress HEENT: Atraumatic Lungs: Clear to auscultation Cardiovascular: Regular rate, Normal S1, Normal S2 Abdomen: Normal bowel sounds Psych/Mental Status: Mental status NL Medications Current Medications Medications Dose Ordered Sig/Anitha Route Start Time Stop Time Status Last Admin Dose Admin Acetaminophen/ Hydrocodone Bitart 1 tab Q4HP PRN PO 01/21/25 07:45 01/22/25 08:17 1 TAB Ondansetron HCl 4 mg Q4HP PRN IV 01/21/25 07:45 01/22/25 15:48 4 MG Docusate Sodium 100 mg BIDPRN PRN PO 01/21/25 07:45 Acetaminophen 650 mg Q6HP PRN PO 01/21/25 07:45 Nitroglycerin 0.4 mg Q5MINP PRN SL 01/21/25 07:45 Morphine Sulfate 2 mg Q30M PRN IV 01/21/25 07:45 01/21/25 16:44 2 MG Insulin Glargine 30 units QAM SC 01/22/25 07:00 01/22/25 07:46 30 UNITS Metoclopramide HCl 10 mg Q6HPRN PRN IV 01/21/25 08:30 01/22/25 08:18 10 MG Diagnostic Test (Pha) 1 strip IQ4HR 01/22/25 04:00 01/22/25 15:33 1 STRIP Insulin Human Regular IQ4HR SC 01/22/25 04:00 01/22/25 15:34 3 UNITS Dextrose 50 ml UD PRN IV 01/22/25 00:30 Laboratory Results Laboratory Tests 01/22/25 06:05 Chemistry Test 01/21/25 22:05 01/22/25 06:05 Calcium Level 9.1 mg/dL (8.7-10.4) 9.3 mg/dL (8.7-10.4) Albumin 4.4 g/dL (3.2-4.8) Total Protein 7.3 g/dL (5.7-8.2) LFT Test 01/22/25 06:05 Alanine Aminotransferase (ALT) 36 U/L (7-40) Alkaline Phosphatase 95 U/L (46-116) Aspartate Amino Transferase (AST) 23 U/L (13-40) Total Bilirubin 0.5 mg/dL (0.2-1.0) Urinalysis Test 01/21/25 09:34 Urine Color Light-yellow (Yellow) Urine Clarity Clear (Clear) Urine pH 5.0 (5.0-9.0) Urine Specific [place] 1.022 (1.001-1.035) Urine Protein Trace (Negative) H Urine Ketones 4+ (Negative) H Urine Blood 1+ /uL (Negative) H Urine Nitrite Negative (Negative) Urine Bilirubin Negative (Negative) Urine Urobilinogen Normal mg/dL (Negative) Urine Leukocyte Esterase Negative /uL (Negative) Urine RBC <1 /hpf (0 - 3) Urine Microscopic WBC 1 /HPF (0-3) Urine Squamous Epithelial Cells Few /hpf (<5) Urine Bacteria None seen /hpf (None Seen) Urine Hyaline Casts Few /lpf (0 - 2) Urine Glucose 4+ mg/dL (Normal) H Assessment/Plan Assessment/Plan DKA (diabetic ketoacidosis) A1c 12.3- Test Pilot on tight glycemic control Erosive Esophagitis with Eschar Necrosis- Protonix and Carafate. Need outpatient GI to r/o Gastroparesis. Acute kidney injury possibly due to VMN- Improving SIRS, Sepsis ruled out- Rocephin Metabolic acidosis- Improving Plan discussed with: Patient Date of Service: Jan 22, 2025 Billing Provider: BRADLEY TOMAS MD Common Visit Codes: [id number] INP/OBS CARE(HIGH) BRADLEY TOMAS MD Jan 22, 2025 18:40
[2025-01-22] MEDS ORDERED: PANT40T PO (19:52)
[2025-01-22] MEDS ORDERED: SUCR1TAB31 PO (19:52)
[2025-01-22] MEDS: cefTRIAXone 1GM/50ML D5W 50 ML IV ONE (20:13)
[2025-01-22] MEDS: PANTOPRAZOLE 40 MG TAB PO ONE (20:26)
[2025-01-22] MEDS: SUCRALFATE 1 GM/10 ML ORAL SUSP GT SCH (21:39)
[2025-01-23] VITALS (8 sets, daily range): BP systolic 116–167; BP diastolic 70–91; PULSE 68–85; RESP 16–18; TEMP 98–98.7; O2SAT 96–98
[2025-01-23] MEDS: PANTOPRAZOLE 40 MG TAB PO SCH (05:44)
[2025-01-23] MEDS: LISINOPRIL 5 MG TAB PO ONE (05:44)
[2025-01-23 08:01] LABS: Alanine Aminotransferase 23 U/L (7-40); Alkaline Phosphatase 102 U/L (46-116); Anion Gap 11 (5-15); BUN/Creatinine Ratio 35.8 (10.0-20.0); Calcium 9.6 mg/dL (8.7-10.4); Carbon Dioxide 27 mmol/L (20-31); Chloride 104 mmol/L (98-107); Magnesium 2.3 mg/dL (1.6-2.6); Sodium 142 mmol/L (136-145)
[2025-01-23 08:02] LABS: Albumin 4.1 g/dL (3.2-4.8)
[2025-01-23 08:03] LABS: Aspartate Aminotransferase 19 U/L (13-40); Bilirubin, Total 1.1 mg/dL (0.2-1.0); Total Protein 6.9 g/dL (5.7-8.2)
[2025-01-23 08:07] LABS: Blood Urea Nitrogen 29 mg/dL (9-23); Glucose 151 mg/dL (74-106); Potassium 3.3 mmol/L (3.5-5.1)
[2025-01-23] MEDS: cefTRIAXone 1GM/50ML D5W 50 ML IV SCH (08:36)
[2025-01-23 10:47] LABS: Basophils # (auto) 0 10 ^3/uL (0-0.2); Basophils % (auto) 0.4 % (0.0-2.0); Eosinophils # (auto) 0.1 10 ^3/uL (0-0.8); Eosinophils % (auto) 0.7 % (0.0-7.0); Hematocrit 44.5 % (41.0-53.0); Hemoglobin 14.9 g/dL (13.5-17.5); Lymphocytes # (auto) 1.6 10 ^3/uL (0.4-5.4); Lymphocytes % (auto) 17.5 % (10.0-50.0); Mean Corpuscular Hemoglobin 29.6 pg (28.0-32.0); Mean Corpuscular Hgb Conc. 33.5 g/dL (32.0-36.0); Mean Corpuscular Volume 88.6 fL (80.0-100.0); Monocytes # (auto) 0.9 10 ^3/uL (0-1.3); Monocytes % (auto) 9.9 % (0.0-12.0); Neutrophils # (auto) 6.7 10 ^3/uL (1.6-8.6); Neutrophils % (auto) 71.5 % (37.0-80.0); Platelet Count (auto) 193 10^3/uL (140-450); Red Blood Cells 5.03 10^6/uL (4.5-5.90); Red Cell Distribution Width 13.3 % (11.8-14.3); White Blood Cell 9.3 10^3/uL (4.4-10.8)
--- NOTE | 2025-01-23 11:55 | DVHCONRES ---
Date Seen: Jan 23, 2025 Resident Creating Document: ELLIS HERNANDEZ RESIDENT Referring Physician Dr Salas Reason for Consultation Hematemesis History of Present Illness Patient is a 44-year-old male with past medical history of type 2 diabetes mellitus, severe grade C erosive esophagitis with overlying eschar necrosis and ulceration, hiatal hernia, gastritis, history of alcohol abuse who came to the hospital with chief complaint of worsening nausea, vomiting, generalized weakness. As per patient his symptoms started on Tuesday which continued to worsen that prompted visit to the hospital. During hospitalization patient found to have diabetic ketoacidosis with blood sugar level is 600, treated with IV fluid and insulin. However patient continued to have nausea and vomiting which appears to have blood as well. However hemoglobin is stable. At the time of evaluation patient was complaining of nausea, vomiting, mild epigastric abdominal pain. No diarrhea. No any other new complaints. Past medical history: Type 2 diabetes mellitus , severe grade C erosive esophagitis with overlying eschar necrosis and ulceration, hiatal hernia, gastritis Personal history: Chronic Alcohol abuse Past Surgical History: Denies surgical history Family History: Reviewed, non-contributory to the management of this case. Home medication: Insulin glargine 16 units HS, insulin NPH 10 units subQ b.i.d., pantoprazole 40 mg p.o. b.i.d., sucralfate 1 g p.o. q.i.d., thiamine 100 mg p.o. daily, folic acid 1 mg p.o. daily. PROCEDURE: Upper Endoscopy with biopsy. DATE OF OPERATION: 07/31/24 POSTOPERATIVE DIAGNOSES: 1. 2-3 cm sliding-type hiatal hernia with acute severe grade C erosive esophagitis with overlying eschar necrosis and ulceration extending to the distal 10 cm of the esophagus from which biopsies were obtained 2. Mild gastritis and gastropathy more prominent in the proximal stomach 3. Otherwise normal examination up to the 2nd and 3rd part of the duodenal with no active bleeding Pathology report: Negative for dysplasia, H pylori. Family History: Cardiovascular disease G8 FATHER, Allergies: Coded Allergies: No Known Drug Allergy (Unverified Allergy, Unknown, 08/05/23) Home Meds Active Scripts Sucralfate (CARAFATE) 1 Gm Tab, 1 GM PO QID for 30 Days, #120 TAB Prov:BRADLEY TOMAS MD 01/22/25 Pantoprazole Sodium Sesquihydr (Pantoprazole Sodium) 40 Mg Tab, 40 MG PO BID for 30 Days, #60 TAB Prov:BRADLEY TOMAS MD 01/22/25 Folic Acid (Folic Acid) 1 Mg Tab, 1 MG PO DAILY, #30 TAB Prov:JOHNNA NAVARRO MD 08/02/24 Thiamine HCl (Thiamine Hydrochloride) 100 Mg Tab, 100 MG PO DAILY, #30 TAB Prov:JOHNNA NAVARRO MD 08/02/24 Reported Medications Insulin Glargine-Yfgn (Insulin Glargine) 100 Unit/Ml Inj, 16 UNIT SC HS, INJ 08/09/23 Insulin NPH Isophane & Reg (Hu (Novolin 70/30 (70-30) 100 Unit/ml) 1 Inj Inj, 10 UNIT SC BID, INJ 08/09/23 Current Medications Current Medications Medications (Trade) Dose Ordered Sig/Anitha Route PRN Reason Start Time Stop Time Status Last Admin Ceftriaxone Sodium 50 ml @ 100 mls/hr DAILY@09 IV 01/23/25 09:00 01/23/25 08:36 Pantoprazole Sodium (Protonix Tablet) 40 mg BID@0600,1700 PO 01/23/25 06:00 01/23/25 10:18 DC 01/23/25 05:44 Sucralfate (Carafate Susp) 1 gm TID@0600,1130,2200 GT 01/22/25 22:00 01/23/25 05:44 Ondansetron HCl (Zofran) 4 mg Q4HPRN PRN IV NAUSEA / VOMITING 01/23/25 10:15 Pantoprazole Sodium (Protonix) 40 mg BID IV 01/23/25 22:00 Review of Systems Patient complaining of nausea, vomiting, epigastric abdominal pain. Vital Signs Vital Signs Date Time Temp Pulse Resp B/P (MAP) Pulse Ox O2 Delivery O2 Flow Rate FiO2 01/23/25 09:00 98.0 80 17 147/89 (108) 96 98.0 01/22/25 20:00 Room Air* 0 21 Physical Exam General Appearance: Cooperative. Well developed. Well nourished. NAD Head Exam: Normal inspection Neck Exam: Normal inspection. Non-tender. Normal alignment Pulmonary/Respiratory: Chest non-tender. Clear bilateral breath sounds Cardiovascular/Chest: Regular rate and rhythm. No murmurs. No JVD. Peripheral Pulses: 2+ Radial (R). 2+ Radial (L). 2+ Pedal (R). 2+ Pedal (L) Abdominal Exam: Normal bowel sounds. Soft. Nontender. No hepatospenomegaly. No masses Ankle Exam: Negative ankle edema Lower extremities: Negative lower extremity edema Neuro/Mental Status: A&O x4. Coherent Thoughts/Psych: Normal thought pattern. Appropriate mood and affect. Good judgement and insight Appearance: In no acute distress Skin Exam: Normal inspection. Normal color. Warm. Dry Labs/Diagnostic Data Labs Test 01/23/25 10:15 01/23/25 07:50 01/23/25 06:51 01/21/25 09:34 Range/Units White Blood Count 9.3 # 4.4-10.8 10^3/uL Red Blood Count 5.03 4.5-5.90 10^6/uL Hemoglobin 14.9 13.5-17.5 g/dL Hematocrit 44.5 41.0-53.0 % Mean Corpuscular Volume 88.6 80.0-100.0 fL Mean Corpuscular Hemoglobin 29.6 28.0-32.0 pg Mean Corpuscular Hemoglobin Concent 33.5 32.0-36.0 g/dL Red Cell Distribution Width 13.3 11.8-14.3 % Platelet Count 193 140-450 10^3/uL Mean Platelet Volume 7.8 6.9-10.8 fL Neutrophils (%) (Auto) 71.5 37.0-80.0 % Lymphocytes (%) (Auto) 17.5 10.0-50.0 % Monocytes (%) (Auto) 9.9 0.0-12.0 % Eosinophils (%) (Auto) 0.7 0.0-7.0 % Basophils (%) (Auto) 0.4 0.0-2.0 % Neutrophils # (Auto) 6.7 1.6-8.6 10 ^3/uL Lymphocytes # (Auto) 1.6 0.4-5.4 10 ^3/uL Monocytes # (Auto) 0.9 0-1.3 10 ^3/uL Eosinophils # (Auto) 0.1 0-0.8 10 ^3/uL Basophils # (Auto) 0 0-0.2 10 ^3/uL Nucleated Red Blood Cells 0.0 % POC Glucose 148 H 70-106 mg/dl Sodium Level 142 136-145 mmol/L Potassium Level 3.3 L 3.5-5.1 mmol/L Chloride Level 104 98-107 mmol/L Carbon Dioxide Level 27 20-31 mmol/L Anion Gap 11 5-15 Blood Urea Nitrogen 29 H 9-23 mg/dL Creatinine 0.81 0.700-1.30 mg/dL Glomerular Filtration Rate Calc 113 >90 mL/min BUN/Creatinine Ratio 35.8 H 10.0-20.0 Serum Glucose 151 #H 74-106 mg/dL Calcium Level 9.6 8.7-10.4 mg/dL Magnesium Level 2.3 1.6-2.6 mg/dL Total Bilirubin 1.1 H 0.2-1.0 mg/dL Aspartate Amino Transferase (AST) 19 13-40 U/L Alanine Aminotransferase (ALT) 23 7-40 U/L Alkaline Phosphatase 102 46-116 U/L Total Protein 6.9 5.7-8.2 g/dL Albumin 4.1 3.2-4.8 g/dL Urine Color Light-yellow Yellow Urine Clarity Clear Clear Urine pH 5.0 5.0-9.0 Urine Specific [place] 1.022 1.001-1.035 Urine Protein Trace H Negative Urine Ketones 4+ H Negative Urine Blood 1+ H Negative /uL Urine Nitrite Negative Negative Urine Bilirubin Negative Negative Urine Urobilinogen Normal Negative mg/dL Urine Leukocyte Esterase Negative Negative /uL Urine RBC <1 0 - 3 /hpf Urine Microscopic WBC 1 0-3 /HPF Urine Squamous Epithelial Cells Few <5 /hpf Urine Bacteria None seen None Seen /hpf Urine Hyaline Casts Few 0 - 2 /lpf Urine Glucose 4+ H Normal mg/dL Test 01/21/25 08:20 01/21/25 04:50 01/21/25 04:37 Range/Units Plasma/Serum Blood Alcohol < 3.0 <10 mg/dL Blood Gas Specimen Type Arterial Blood Gas Sample Site Right radial Blood Gas Patient Temperature 37.0 Arterial Blood Date Drawn [id number] Arterial Blood pH 7.186 *L 7.350-7.450 Arterial Blood Partial Pressure CO2 17.4 *L 35.0-48.0 mmHg Arterial Blood Partial Pressure O2 85.7 83.0-108.0 mmHg Arterial Blood HCO3 6.4 L 21.0-28.0 mmol/L Arterial Blood Oxygen Saturation 96.2 94.0-98.0 % Arterial Blood Base Excess -19.1 L -2.0-3.0 mmol/L Arterial Blood Oxyhemoglobin 95.0 94.0-98.0 % Arterial Blood Carboxyhemoglobin 0.6 0.5-1.5 % Arterial Blood Methemoglobin 0.6 0.0-1.5 % Walker Test Yes Blood Gas Total Hemoglobin 17.70 H 13.5-17.5 g/dL Blood Gas Modality Room air FiO2 % 21.0 Blood Gas Critical Value Read Back Yes Blood Gas Notified Whom Frank roy md Blood Gas Notified Time [id number] Blood Gas Notified By Ryan gerber rrt Differential Total Cells Counted 100.0 100 Neutrophils % (Manual) 81 H 37.0-80.0 Band Neutrophils % (Manual) 2 Lymphocytes % (Manual) 12 10.0-50.0 Monocytes % (Manual) 5 0-12 Eosinophils % (Manual) 0 0-7 Basophils % (Manual) 0 0.0-2.0 Metamyelocytes % (manual) 0 Myelocytes % (Manual) 0 Promyelocytes % (Manual) 0 Blast Cells % (Manual) 0 Reactive Lymphocytes 0 Platelet Estimate Adequate Prothrombin Time 10.4 9.3-11.8 sec Prothrombin Time INR 0.98 0.9-1.15 Activated Partial Thromboplast Time 25.0 24.5-34.5 SEC Hemoglobin A1c 12.3 H <5.7 % A1C Serum Osmolality 356 H 278-298 mOsm/kg Phosphorus Level 8.7 H 2.4-5.1 mg/dL Beta-Hydroxybutyric Acid > 4.500 H < 0.4 mmol/L Assessment Diabetic ketoacidosis Abdominal pain likely related to diabetic ketoacidosis and erosive esophagitis Severe erosive grade C esophagitis with eschar necrosis Hematemesis ? Gastroparesis Intractable nausea and vomiting Diabetes mellitus type 2 HGB A1c 12.3 on 01/21/2025 Plan/recommendation Dr Stafford #EGD on 07/31/2024 1. 2-3 cm sliding-type hiatal hernia with acute severe grade C erosive esophagitis with overlying eschar necrosis and ulceration extending to the distal 10 cm of the esophagus from which biopsies were obtained 2. Mild gastritis and gastropathy more prominent in the proximal stomach 3. Otherwise normal examination up to the 2nd and 3rd part of the duodenal with no active bleeding -continue current management with Protonix 40 mg IV b.i.d., Carafate 1 g suspension q.i.d.. -continue to monitor hemoglobin hematocrit. -no need for any GI intervention at this point. We will continue conservative management. We will continue to monitor. -conservative management with IV fluid, Reglan, ondansetron. Plan discussed with: Patient, Other (RN) ELLIS HERNANDEZ RESIDENT Jan 23, 2025 11:55
--- NOTE | 2025-01-23 11:58 | DVHPN2 ---
Subjective Seen and examined at bedside, patient is having nausea, unable to eat. GI consult. Cont Carafate and Protonix. Will add Zofran. Changes from previous H/P or p: No Changes Eyes: No Pain, No Vision change, No Conjunctivae inflammation, No Eyelid inflammation, No Other, No Redness ENT: No Ear pain, No Ear discharge, No Nose pain, No Nose discharge, No Nose congestion, No Mouth pain, No Mouth swelling, No Throat pain, No Throat swelling, No Other Cardiovascular: No Chest Pain, No Palpitations, No Orthopnea, No Paroxysmal Noc. Dyspnea, No Edema, No Lt Headedness, No Other Respiratory: No Cough, No Dry, No Shortness of breath, No SOB with excertion, No Wheezing, No Hemoptysis, No Pleuritic Pain, No Sputum, No Other Gastrointestinal: No Nausea, No Vomiting, No Abdominal Pain, No Diarrhea, No Constipation, No Melena, No Hematochezia, No Other Genitourinary: No Dysuria, No Frequency, No Incontinence, No Hematuria, No Retention, No Other Musculoskeletal: No other, No neck pain, No shoulder pain, No arm pain, No back pain, No hand pain, No leg pain, No foot pain Skin: No Rash, No Lesions, No Jaundice, No Bruising, No Other Objective Vitals Vital Signs Date Time Temp Pulse Resp B/P (MAP) Pulse Ox O2 Delivery O2 Flow Rate FiO2 01/23/25 09:00 98.0 80 17 147/89 (108) 96 98.0 01/22/25 20:00 Room Air* 0 21 Intake/Output Intake and Output 01/23/25 07:00 Intake Total 600 ml Output Total 300 ml Balance 300 ml Intake Oral 600 ml Output Urine Total 300 ml # Voids 2 # Bowel Movements 2 General Appearance: Alert, Oriented X3, Cooperative, No acute distress HEENT: Atraumatic Lungs: Clear to auscultation Cardiovascular: Regular rate, Normal S1, Normal S2 Abdomen: Normal bowel sounds Psych/Mental Status: Mental status NL Medications Current Medications Medications Dose Ordered Sig/Anitha Route Start Time Stop Time Status Last Admin Dose Admin Acetaminophen/ Hydrocodone Bitart 1 tab Q4HP PRN PO 01/21/25 07:45 01/22/25 17:52 1 TAB Docusate Sodium 100 mg BIDPRN PRN PO 01/21/25 07:45 Acetaminophen 650 mg Q6HP PRN PO 01/21/25 07:45 Nitroglycerin 0.4 mg Q5MINP PRN SL 01/21/25 07:45 Morphine Sulfate 2 mg Q30M PRN IV 01/21/25 07:45 01/21/25 16:44 2 MG Insulin Glargine 30 units QAM SC 01/22/25 07:00 01/23/25 06:28 30 UNITS Metoclopramide HCl 10 mg Q6HPRN PRN IV 01/21/25 08:30 01/22/25 08:18 10 MG Diagnostic Test (Pha) 1 strip IQ4HR 01/22/25 04:00 01/23/25 08:09 1 STRIP Insulin Human Regular IQ4HR SC 01/22/25 04:00 01/23/25 08:17 2 UNITS Dextrose 50 ml UD PRN IV 01/22/25 00:30 Ceftriaxone Sodium 50 ml @ 100 mls/hr DAILY@09 IV 01/23/25 09:00 01/23/25 08:36 100 MLS/HR Sucralfate 1 gm TID@0600,1130,2200 GT 01/22/25 22:00 01/23/25 05:44 1 GM Ondansetron HCl 4 mg Q4HPRN PRN IV 01/23/25 10:15 Pantoprazole Sodium 40 mg BID IV 01/23/25 22:00 Laboratory Results Laboratory Tests 01/23/25 06:51 01/23/25 10:15 Chemistry Test 01/23/25 06:51 Albumin 4.1 g/dL (3.2-4.8) Calcium Level 9.6 mg/dL (8.7-10.4) Magnesium Level 2.3 mg/dL (1.6-2.6) Total Protein 6.9 g/dL (5.7-8.2) LFT Test 01/23/25 06:51 Alanine Aminotransferase (ALT) 23 U/L (7-40) Alkaline Phosphatase 102 U/L (46-116) Aspartate Amino Transferase (AST) 19 U/L (13-40) Total Bilirubin 1.1 mg/dL (0.2-1.0) H Urinalysis Test 01/21/25 09:34 Urine Color Light-yellow (Yellow) Urine Clarity Clear (Clear) Urine pH 5.0 (5.0-9.0) Urine Specific [place] 1.022 (1.001-1.035) Urine Protein Trace (Negative) H Urine Ketones 4+ (Negative) H Urine Blood 1+ /uL (Negative) H Urine Nitrite Negative (Negative) Urine Bilirubin Negative (Negative) Urine Urobilinogen Normal mg/dL (Negative) Urine Leukocyte Esterase Negative /uL (Negative) Urine RBC <1 /hpf (0 - 3) Urine Microscopic WBC 1 /HPF (0-3) Urine Squamous Epithelial Cells Few /hpf (<5) Urine Bacteria None seen /hpf (None Seen) Urine Hyaline Casts Few /lpf (0 - 2) Urine Glucose 4+ mg/dL (Normal) H Assessment/Plan Assessment/Plan DKA (diabetic ketoacidosis) A1c 12.3- Manager Documentation on tight glycemic control Erosive Esophagitis with Eschar Necrosis- Protonix and Carafate. Need outpatient GI to r/o Gastroparesis with NM emptying study. Acute kidney injury possibly due to VMN- Improving SIRS, Sepsis ruled out- Rocephin Metabolic acidosis- Improving Plan discussed with: Patient My Orders Orders - BRADLEY TOMAS MD Procedure Category Date Status Time Discontinue Tele LANETTE 01/22/25 In Process 18:37 Ceftriaxone 1gm/50ml PHA 01/23/25 In Process D5w (Rocephin) 09:00 Sucralfate Susp PHA 01/22/25 In Process (Carafate Susp) 22:00 Npo (Nothing By DIET 01/23/25 Transmitted Mouth) Diet Lunch * [facility] [employer] CONS 01/23/25 Transmitted 10:07 Complete Blood Count LAB 01/24/25 Verified 04:00 Basic Metabolic Panel LAB 01/24/25 Verified 04:00 Magnesium LAB 01/24/25 Verified 04:00 Ondansetron Hcl PHA 01/23/25 In Process (Zofran) 10:15 Date of Service: Jan 23, 2025 Billing Provider: BRADLEY TOMAS MD Common Visit Codes: [id number] INP/OBS CARE(HIGH) BRADLEY TOMAS MD Jan 23, 2025 11:58
[2025-01-23] MEDS: ONDANSETRON HCL 4 MG/2 ML VIAL IV PRN (15:08)
[2025-01-23] MEDS: PANTOPRAZOLE 40 MG/10 ML VIAL INJ IV SCH (21:22)
[2025-01-24] VITALS (8 sets, daily range): BP systolic 109–126; BP diastolic 65–79; PULSE 62–69; RESP 12–18; TEMP 98–98.8; O2SAT 95–99
[2025-01-24 06:50] LABS: Basophils # (auto) 0.1 10 ^3/uL (0-0.2); Basophils % (auto) 0.8 % (0.0-2.0); Eosinophils # (auto) 0.2 10 ^3/uL (0-0.8); Eosinophils % (auto) 3.6 % (0.0-7.0); Hematocrit 42.5 % (41.0-53.0); Hemoglobin 14.3 g/dL (13.5-17.5); Lymphocytes # (auto) 2.4 10 ^3/uL (0.4-5.4); Lymphocytes % (auto) 37.5 % (10.0-50.0); Mean Corpuscular Hemoglobin 29.6 pg (28.0-32.0); Mean Corpuscular Hgb Conc. 33.6 g/dL (32.0-36.0); Mean Corpuscular Volume 88.1 fL (80.0-100.0); Monocytes # (auto) 0.7 10 ^3/uL (0-1.3); Monocytes % (auto) 11.3 % (0.0-12.0); Neutrophils % (auto) 46.8 % (37.0-80.0); Nucleated Red Blood Cells % 0.1 %; Platelet Count (auto) 187 10^3/uL (140-450); Red Blood Cells 4.82 10^6/uL (4.5-5.90); Red Cell Distribution Width 13.2 % (11.8-14.3); White Blood Cell 6.5 10^3/uL (4.4-10.8)
[2025-01-24 06:52] LABS: Anion Gap 10 (5-15); Carbon Dioxide 28 mmol/L (20-31); Chloride 103 mmol/L (98-107); Sodium 141 mmol/L (136-145)
[2025-01-24 06:53] LABS: Calcium 9.3 mg/dL (8.7-10.4); Potassium 3.1 mmol/L (3.5-5.1)
[2025-01-24 06:58] LABS: BUN/Creatinine Ratio 35.9 (10.0-20.0); Glucose 88 mg/dL (74-106)
[2025-01-24 06:59] LABS: Magnesium 2.2 mg/dL (1.6-2.6)
[2025-01-24 07:02] LABS: Blood Urea Nitrogen 23 mg/dL (9-23)
--- NOTE | 2025-01-24 10:38 | DVHPN2 ---
Progress Note Date Seen: Jan 24, 2025 Resident Creating Document: ELLIS HERNANDEZ RESIDENT Medical Necessity Reason Pt with a Central, PICC or Fol: No Subjective Review of Systems patient seen and examined at bedside still nausea one episode of vomiting mild abdominal pain Objective vital signs Vital Sign Date Time Temp Pulse Resp B/P (MAP) Pulse Ox O2 Delivery O2 Flow Rate FiO2 01/24/25 08:32 98.0 65 18 111/65 (80) 97 98.0 01/23/25 20:00 Room Air* 0 21 Total Intake and Output 01/23/25 01/23/25 01/24/25 15:00 23:00 07:00 Intake Total 170 ml 120 ml 240 ml Balance 170 ml 120 ml 240 ml medications Current Medications Medications Dose Ordered Sig/Anitha Route Start Time Stop Time Status Last Admin Dose Admin Acetaminophen/ Hydrocodone Bitart 1 tab Q4HP PRN PO 01/21/25 07:45 01/23/25 20:50 1 TAB Docusate Sodium 100 mg BIDPRN PRN PO 01/21/25 07:45 Acetaminophen 650 mg Q6HP PRN PO 01/21/25 07:45 Nitroglycerin 0.4 mg Q5MINP PRN SL 01/21/25 07:45 Morphine Sulfate 2 mg Q30M PRN IV 01/21/25 07:45 01/21/25 16:44 2 MG Insulin Glargine 30 units QAM SC 01/22/25 07:00 01/24/25 06:29 30 UNITS Metoclopramide HCl 10 mg Q6HPRN PRN IV 01/21/25 08:30 01/22/25 08:18 10 MG Diagnostic Test (Pha) 1 strip IQ4HR 01/22/25 04:00 01/24/25 08:00 1 STRIP Insulin Human Regular IQ4HR SC 01/22/25 04:00 01/24/25 09:31 2 UNITS Dextrose 50 ml UD PRN IV 01/22/25 00:30 Ceftriaxone Sodium 50 ml @ 100 mls/hr DAILY@09 IV 01/23/25 09:00 01/24/25 09:23 100 MLS/HR Sucralfate 1 gm TID@0600,1130,2200 GT 01/22/25 22:00 01/24/25 06:24 1 GM Ondansetron HCl 4 mg Q4HPRN PRN IV 01/23/25 10:15 01/23/25 15:08 4 MG Pantoprazole Sodium 40 mg BID IV 01/23/25 22:00 01/24/25 09:23 40 MG Examination General Appearance: Cooperative. Well developed. Well nourished. NAD Head Exam: Normal inspection Neck Exam: Normal inspection. Non-tender. Normal alignment Pulmonary/Respiratory: Chest non-tender. Clear bilateral breath sounds Cardiovascular/Chest: Regular rate and rhythm. No murmurs. No JVD. Peripheral Pulses: 2+ Radial (R). 2+ Radial (L). 2+ Pedal (R). 2+ Pedal (L) Abdominal Exam: Normal bowel sounds. Soft. Nontender. No hepatospenomegaly. No masses Ankle Exam: Negative ankle edema Lower extremities: Negative lower extremity edema Neuro/Mental Status: A&O x4. Coherent Thoughts/Psych: Normal thought pattern. Appropriate mood and affect. Good judgement and insight Appearance: In no acute distress Skin Exam: Normal inspection. Normal color. Warm. Dry laboratory and microbiology Laboratory Tests 01/24/25 05:50 Test 01/24/25 05:50 Range/Units Serum Glucose 88 74-106 mg/dL Microbiology Date/Time Source Procedure Growth Status 01/22/25 15:36 Nose MRSA Screen - Final Complete Problem List/Assessment/Plan Problem List/Assessment/Plan Diabetic ketoacidosis Abdominal pain likely related to diabetic ketoacidosis and erosive esophagitis Severe erosive grade C esophagitis with eschar necrosis Hematemesis ? Gastroparesis Intractable nausea and vomiting Diabetes mellitus type 2 HGB A1c 12.3 on 01/21/2025 Plan/recommendation Dr Stafford #EGD on 07/31/2024 1. 2-3 cm sliding-type hiatal hernia with acute severe grade C erosive esophagitis with overlying eschar necrosis and ulceration extending to the distal 10 cm of the esophagus from which biopsies were obtained 2. Mild gastritis and gastropathy more prominent in the proximal stomach 3. Otherwise normal examination up to the 2nd and 3rd part of the duodenal with no active bleeding -continue current management with Protonix 40 mg IV b.i.d., Carafate 1 g suspension q.i.d. Can DC with protonix and carafate. -continue to monitor hemoglobin hematocrit. -no need for any GI intervention at this point. We will continue conservative management. We will continue to monitor. -conservative management with IV fluid, Reglan, ondansetron. Plan discussed with: Patient, Other (RN) ELLIS HERNANDEZ RESIDENT Jan 24, 2025 10:38
--- NOTE | 2025-01-24 14:11 | DVHPN2 ---
Subjective He is still complaining of abdominal pain and burning when he is drinking liquids Potassium is 3.1 Changes from previous H/P or p: Changes Eyes: No Pain, No Vision change, No Conjunctivae inflammation, No Eyelid inflammation, No Other, No Redness ENT: No Ear pain, No Ear discharge, No Nose pain, No Nose discharge, No Nose congestion, No Mouth pain, No Mouth swelling, No Throat pain, No Throat swelling, No Other Cardiovascular: No Chest Pain, No Palpitations, No Orthopnea, No Paroxysmal Noc. Dyspnea, No Edema, No Lt Headedness, No Other Respiratory: No Cough, No Dry, No Shortness of breath, No SOB with excertion, No Wheezing, No Hemoptysis, No Pleuritic Pain, No Sputum, No Other Gastrointestinal: No Nausea, No Vomiting, No Abdominal Pain, No Diarrhea, No Constipation, No Melena, No Hematochezia, No Other Genitourinary: No Dysuria, No Frequency, No Incontinence, No Hematuria, No Retention, No Other Musculoskeletal: No other, No neck pain, No shoulder pain, No arm pain, No back pain, No hand pain, No leg pain, No foot pain Skin: No Rash, No Lesions, No Jaundice, No Bruising, No Other Objective Vitals Vital Signs Date Time Temp Pulse Resp B/P (MAP) Pulse Ox O2 Delivery O2 Flow Rate FiO2 01/24/25 08:32 98.0 65 18 111/65 (80) 97 98.0 01/24/25 08:00 Room Air* 0 21 Intake/Output Intake and Output 01/24/25 07:00 Intake Total 530 ml Balance 530 ml Intake Oral 480 ml IV Total 50 ml # Voids 6 General Appearance: Alert, Oriented X3, Cooperative, No acute distress HEENT: Atraumatic Lungs: Clear to auscultation Cardiovascular: Regular rate, Normal S1, Normal S2 Abdomen: Normal bowel sounds Psych/Mental Status: Mental status NL Medications Current Medications Medications Dose Ordered Sig/Anitha Route Start Time Stop Time Status Last Admin Dose Admin Acetaminophen/ Hydrocodone Bitart 1 tab Q4HP PRN PO 01/21/25 07:45 01/23/25 20:50 1 TAB Docusate Sodium 100 mg BIDPRN PRN PO 01/21/25 07:45 Acetaminophen 650 mg Q6HP PRN PO 01/21/25 07:45 Nitroglycerin 0.4 mg Q5MINP PRN SL 01/21/25 07:45 Morphine Sulfate 2 mg Q30M PRN IV 01/21/25 07:45 01/21/25 16:44 2 MG Insulin Glargine 30 units QAM SC 01/22/25 07:00 01/24/25 06:29 30 UNITS Metoclopramide HCl 10 mg Q6HPRN PRN IV 01/21/25 08:30 01/22/25 08:18 10 MG Diagnostic Test (Pha) 1 strip IQ4HR 01/22/25 04:00 01/24/25 11:49 1 STRIP Insulin Human Regular IQ4HR SC 01/22/25 04:00 01/24/25 12:02 6 UNITS Dextrose 50 ml UD PRN IV 01/22/25 00:30 Ceftriaxone Sodium 50 ml @ 100 mls/hr DAILY@09 IV 01/23/25 09:00 01/24/25 09:23 100 MLS/HR Sucralfate 1 gm TID@0600,1130,2200 GT 01/22/25 22:00 01/24/25 11:30 1 GM Ondansetron HCl 4 mg Q4HPRN PRN IV 01/23/25 10:15 01/23/25 15:08 4 MG Pantoprazole Sodium 40 mg BID IV 01/23/25 22:00 01/24/25 09:23 40 MG Laboratory Results Laboratory Tests 01/24/25 05:50 Chemistry Test 01/24/25 05:50 Calcium Level 9.3 mg/dL (8.7-10.4) Magnesium Level 2.2 mg/dL (1.6-2.6) Urinalysis Test 01/21/25 09:34 Urine Color Light-yellow (Yellow) Urine Clarity Clear (Clear) Urine pH 5.0 (5.0-9.0) Urine Specific [place] 1.022 (1.001-1.035) Urine Protein Trace (Negative) H Urine Ketones 4+ (Negative) H Urine Blood 1+ /uL (Negative) H Urine Nitrite Negative (Negative) Urine Bilirubin Negative (Negative) Urine Urobilinogen Normal mg/dL (Negative) Urine Leukocyte Esterase Negative /uL (Negative) Urine RBC <1 /hpf (0 - 3) Urine Microscopic WBC 1 /HPF (0-3) Urine Squamous Epithelial Cells Few /hpf (<5) Urine Bacteria None seen /hpf (None Seen) Urine Hyaline Casts Few /lpf (0 - 2) Urine Glucose 4+ mg/dL (Normal) H Microbiology Microbiology Date/Time Source Procedure Growth Status 01/22/25 15:36 Nose MRSA Screen - Final Complete Assessment/Plan Assessment/Plan DKA: Resolved Erosive esophagitis Acute kidney injury due to vasomotor nephropathy Sirs Metabolic acidosis Hypokalemia Plan Replace potassium IV Advance diet to soft diet Continue Protonix and Carafate Monitor the patient in the hospital closely Check the electrolytes again in the morning Plan discussed with: Patient Date of Service: Jan 24, 2025 Billing Provider: ZULEYKA MELARA MD Common Visit Codes: [id number] INP/OBS CARE(HIGH) ZULEYKA MELARA MD Jan 24, 2025 14:11
[2025-01-24] MEDS: POTASSIUM CHLORIDE 40 MEQ, LIDOCAINE 1% (LOCAL ANESTH.) 4 ML in SODIUM CHL 0.9% 250 ML IV ONE (15:16)
[2025-01-24] MEDS: ACCU-CHEK COMFORT CURVE STRIP VI SCH (17:30)
[2025-01-24] MEDS: InsuLIN REG 1unit/0.01ml Soln (100units/ml) SC SCH (17:35)
[2025-01-25 01:00] VITALS: BP 114/71; PULSE 61; RESP 20; TEMP 98.5; O2SAT 97
[2025-01-25 07:14] LABS: Anion Gap 10 (5-15); Carbon Dioxide 27 mmol/L (20-31); Chloride 104 mmol/L (98-107); Sodium 141 mmol/L (136-145)
[2025-01-25 07:20] LABS: BUN/Creatinine Ratio 33.3 (10.0-20.0); Blood Urea Nitrogen 20 mg/dL (9-23); Glucose 75 mg/dL (74-106)
[2025-01-25 08:00] VITALS: PULSE 70; RESP 14; O2SAT 96
[2025-01-25 09:00] VITALS: BP 115/70; PULSE 69; RESP 16; TEMP 98.3; O2SAT 97
[2025-01-25] MEDS ORDERED: POTASSIUM CHL 20 Meq TABLET PO ONE (09:15)
--- NOTE | 2025-01-25 11:05 | DVHPN2 ---
Progress Note Date Seen: Jan 25, 2025 Resident Creating Document: ELLIS HERNANDEZ RESIDENT Medical Necessity Reason Pt with a Central, PICC or Fol: No Subjective Review of Systems Patient seen and examined at bedside. No nausea. No abdominal pain. Regular bowel movement. Objective vital signs Vital Sign Date Time Temp Pulse Resp B/P (MAP) Pulse Ox O2 Delivery O2 Flow Rate FiO2 01/25/25 09:00 98.3 69 16 115/70 (85) 97 98.3 01/24/25 20:00 Room Air* 0 21 Total Intake and Output 01/24/25 01/24/25 01/25/25 15:00 23:00 07:00 Intake Total 50 ml 794 ml 400 ml Output Total 200 ml Balance 50 ml 794 ml 200 ml medications Current Medications Medications Dose Ordered Sig/Anitha Route Start Time Stop Time Status Last Admin Dose Admin Acetaminophen/ Hydrocodone Bitart 1 tab Q4HP PRN PO 01/21/25 07:45 01/24/25 21:04 1 TAB Docusate Sodium 100 mg BIDPRN PRN PO 01/21/25 07:45 Acetaminophen 650 mg Q6HP PRN PO 01/21/25 07:45 Nitroglycerin 0.4 mg Q5MINP PRN SL 01/21/25 07:45 Morphine Sulfate 2 mg Q30M PRN IV 01/21/25 07:45 01/21/25 16:44 2 MG Insulin Glargine 30 units QAM SC 01/22/25 07:00 01/25/25 06:44 30 UNITS Metoclopramide HCl 10 mg Q6HPRN PRN IV 01/21/25 08:30 01/22/25 08:18 10 MG Dextrose 50 ml UD PRN IV 01/22/25 00:30 Ceftriaxone Sodium 50 ml @ 100 mls/hr DAILY@09 IV 01/23/25 09:00 01/25/25 09:16 100 MLS/HR Sucralfate 1 gm TID@0600,1130,2200 GT 01/22/25 22:00 01/25/25 06:24 1 GM Ondansetron HCl 4 mg Q4HPRN PRN IV 01/23/25 10:15 01/23/25 15:08 4 MG Pantoprazole Sodium 40 mg BID IV 01/23/25 22:00 01/25/25 09:16 40 MG Diagnostic Test (Pha) 1 strip ACHS 01/24/25 17:00 01/25/25 06:44 1 STRIP Insulin Human Regular ACHS SC 01/24/25 17:00 01/24/25 21:53 9 UNITS Examination General Appearance: Cooperative. Well developed. Well nourished. NAD Head Exam: Normal inspection Neck Exam: Normal inspection. Non-tender. Normal alignment Pulmonary/Respiratory: Chest non-tender. Clear bilateral breath sounds Cardiovascular/Chest: Regular rate and rhythm. No murmurs. No JVD. Peripheral Pulses: 2+ Radial (R). 2+ Radial (L). 2+ Pedal (R). 2+ Pedal (L) Abdominal Exam: Normal bowel sounds. Soft. Nontender. No hepatospenomegaly. No masses Ankle Exam: Negative ankle edema Lower extremities: Negative lower extremity edema Neuro/Mental Status: A&O x4. Coherent Thoughts/Psych: Normal thought pattern. Appropriate mood and affect. Good judgement and insight Appearance: In no acute distress Skin Exam: Normal inspection. Normal color. Warm. Dry laboratory and microbiology Laboratory Tests 01/25/25 05:35 01/24/25 05:50 Test 01/25/25 05:35 Range/Units Serum Glucose 75 74-106 mg/dL Microbiology Date/Time Source Procedure Growth Status 01/22/25 15:36 Nose MRSA Screen - Final Complete Problem List/Assessment/Plan Problem List/Assessment/Plan Diabetic ketoacidosis Abdominal pain likely related to diabetic ketoacidosis and erosive esophagitis Severe erosive grade C esophagitis with eschar necrosis Hematemesis ? Gastroparesis Intractable nausea and vomiting Diabetes mellitus type 2 HGB A1c 12.3 on 01/21/2025 Plan/recommendation Dr Stafford #EGD on 07/31/2024 1. 2-3 cm sliding-type hiatal hernia with acute severe grade C erosive esophagitis with overlying eschar necrosis and ulceration extending to the distal 10 cm of the esophagus from which biopsies were obtained 2. Mild gastritis and gastropathy more prominent in the proximal stomach 3. Otherwise normal examination up to the 2nd and 3rd part of the duodenal with no active bleeding -continue current management with Protonix 40 mg IV b.i.d., Carafate 1 g suspension q.i.d. Can DC with protonix and carafate. -continue to monitor hemoglobin hematocrit. -no need for any GI intervention at this point. We will continue conservative management. We will continue to monitor. -conservative management with IV fluid, Reglan, ondansetron. Plan discussed with: Patient, Other (RN) ELLIS HERNANDEZ RESIDENT Jan 25, 2025 11:05
--- NOTE | 2025-01-25 12:10 | DVHPN2 ---
Subjective He is still having some pain with swallowing He is eating better but prefers soft diet Potassium is 3.0 Changes from previous H/P or p: Changes Eyes: No Pain, No Vision change, No Conjunctivae inflammation, No Eyelid inflammation, No Other, No Redness ENT: No Ear pain, No Ear discharge, No Nose pain, No Nose discharge, No Nose congestion, No Mouth pain, No Mouth swelling, No Throat pain, No Throat swelling, No Other Cardiovascular: No Chest Pain, No Palpitations, No Orthopnea, No Paroxysmal Noc. Dyspnea, No Edema, No Lt Headedness, No Other Respiratory: No Cough, No Dry, No Shortness of breath, No SOB with excertion, No Wheezing, No Hemoptysis, No Pleuritic Pain, No Sputum, No Other Gastrointestinal: No Nausea, No Vomiting, No Abdominal Pain, No Diarrhea, No Constipation, No Melena, No Hematochezia, No Other Genitourinary: No Dysuria, No Frequency, No Incontinence, No Hematuria, No Retention, No Other Musculoskeletal: No other, No neck pain, No shoulder pain, No arm pain, No back pain, No hand pain, No leg pain, No foot pain Skin: No Rash, No Lesions, No Jaundice, No Bruising, No Other Objective Vitals Vital Signs Date Time Temp Pulse Resp B/P (MAP) Pulse Ox O2 Delivery O2 Flow Rate FiO2 01/25/25 09:00 98.3 69 16 115/70 (85) 97 98.3 01/24/25 20:00 Room Air* 0 21 Intake/Output Intake and Output 01/25/25 07:00 Intake Total 1244 ml Output Total 200 ml Balance 1044 ml Intake Oral 920 ml IV Total 324 ml Output Urine Total 200 ml # Voids 3 General Appearance: Alert, Oriented X3, Cooperative, No acute distress HEENT: Atraumatic Lungs: Clear to auscultation Cardiovascular: Regular rate, Normal S1, Normal S2 Abdomen: Normal bowel sounds Psych/Mental Status: Mental status NL Medications Current Medications Medications Dose Ordered Sig/Anitha Route Start Time Stop Time Status Last Admin Dose Admin Acetaminophen/ Hydrocodone Bitart 1 tab Q4HP PRN PO 01/21/25 07:45 01/24/25 21:04 1 TAB Docusate Sodium 100 mg BIDPRN PRN PO 01/21/25 07:45 Acetaminophen 650 mg Q6HP PRN PO 01/21/25 07:45 Nitroglycerin 0.4 mg Q5MINP PRN SL 01/21/25 07:45 Morphine Sulfate 2 mg Q30M PRN IV 01/21/25 07:45 01/21/25 16:44 2 MG Insulin Glargine 30 units QAM SC 01/22/25 07:00 01/25/25 06:44 30 UNITS Metoclopramide HCl 10 mg Q6HPRN PRN IV 01/21/25 08:30 01/22/25 08:18 10 MG Dextrose 50 ml UD PRN IV 01/22/25 00:30 Ceftriaxone Sodium 50 ml @ 100 mls/hr DAILY@09 IV 01/23/25 09:00 01/25/25 09:16 100 MLS/HR Sucralfate 1 gm TID@0600,1130,2200 GT 01/22/25 22:00 01/25/25 11:30 1 GM Ondansetron HCl 4 mg Q4HPRN PRN IV 01/23/25 10:15 01/23/25 15:08 4 MG Pantoprazole Sodium 40 mg BID IV 01/23/25 22:00 01/25/25 09:16 40 MG Diagnostic Test (Pha) 1 strip ACHS 01/24/25 17:00 01/25/25 11:52 1 STRIP Insulin Human Regular ACHS SC 01/24/25 17:00 01/25/25 11:53 9 UNITS Laboratory Results Laboratory Tests 01/24/25 05:50 01/25/25 05:35 Chemistry Test 01/25/25 05:35 Calcium Level 9.0 mg/dL (8.7-10.4) Urinalysis Test 01/21/25 09:34 Urine Color Light-yellow (Yellow) Urine Clarity Clear (Clear) Urine pH 5.0 (5.0-9.0) Urine Specific [place] 1.022 (1.001-1.035) Urine Protein Trace (Negative) H Urine Ketones 4+ (Negative) H Urine Blood 1+ /uL (Negative) H Urine Nitrite Negative (Negative) Urine Bilirubin Negative (Negative) Urine Urobilinogen Normal mg/dL (Negative) Urine Leukocyte Esterase Negative /uL (Negative) Urine RBC <1 /hpf (0 - 3) Urine Microscopic WBC 1 /HPF (0-3) Urine Squamous Epithelial Cells Few /hpf (<5) Urine Bacteria None seen /hpf (None Seen) Urine Hyaline Casts Few /lpf (0 - 2) Urine Glucose 4+ mg/dL (Normal) H Microbiology Microbiology Date/Time Source Procedure Growth Status 01/22/25 15:36 Nose MRSA Screen - Final Complete Assessment/Plan Assessment/Plan DKA: Resolved Erosive esophagitis Acute kidney injury due to vasomotor nephropathy Sirs Metabolic acidosis Hypokalemia Plan Replace potassium IV Advance diet to soft diet Continue Protonix and Carafate Monitor the patient in the hospital closely Check the electrolytes again in the morning 01/25/2025: Hypokalemia: Replace Advance diet to soft diet Continue Protonix and Carafate Monitor closely The patient is still not stable for discharge Plan discussed with: Patient My Orders Orders - ZULEYKA MELARA MD Procedure Category Date Status Time Glucose Blood PHA 01/24/25 In Process (Accu-Chek Comfort 17:00 Insulin R (Human) PHA 01/24/25 In Process (Insulin R) 17:00 Mechanical Soft Diet DIET 01/24/25 Transmitted Dinner Potassium Effervesent PHA 01/25/25 Logged Tab (Klor-Con/Ef) 11:30 Date of Service: Jan 25, 2025 Billing Provider: ZULEYKA MELARA MD Common Visit Codes: [id number] INP/OBS CARE(HIGH) ZULEYKA MELARA MD Jan 25, 2025 12:10
[2025-01-25] MEDS: POTASSIUM EFFERVESENT TAB 25 MEQ PO ONE (12:32)
[2025-01-25 12:59] VITALS: BP 115/61; PULSE 66; RESP 18; TEMP 97.9; O2SAT 97
[2025-01-25 17:00] VITALS: BP 113/71; PULSE 69; RESP 16; TEMP 98.9; O2SAT 98
[2025-01-25 21:00] VITALS: BP 107/64; PULSE 64; RESP 18; TEMP 98.9; O2SAT 97
[2025-01-26] VITALS (7 sets, daily range): BP systolic 95–115; BP diastolic 52–68; PULSE 63–71; RESP 16–19; TEMP 98–99.1; O2SAT 96–99
[2025-01-26 07:00] LABS: Anion Gap 9 (5-15); Calcium 8.8 mg/dL (8.7-10.4); Carbon Dioxide 28 mmol/L (20-31); Chloride 102 mmol/L (98-107); Potassium 3.5 mmol/L (3.5-5.1); Sodium 139 mmol/L (136-145)
[2025-01-26 07:06] LABS: BUN/Creatinine Ratio 21.7 (10.0-20.0); Blood Urea Nitrogen 15 mg/dL (9-23)
[2025-01-26 07:08] LABS: Glucose 121 mg/dL (74-106)
--- NOTE | 2025-01-26 13:59 | DVHPN2 ---
Subjective The patient is seen and examined at bedside. No complaint today. Reviewed: Care Plan, H&P, Labs, Medications, Previous Orders, Radiology Changes from previous H/P or p: No Changes Eyes: No Pain, No Vision change, No Conjunctivae inflammation, No Eyelid inflammation, No Other, No Redness ENT: No Ear pain, No Ear discharge, No Nose pain, No Nose discharge, No Nose congestion, No Mouth pain, No Mouth swelling, No Throat pain, No Throat swelling, No Other Cardiovascular: No Chest Pain, No Palpitations, No Orthopnea, No Paroxysmal Noc. Dyspnea, No Edema, No Lt Headedness, No Other Respiratory: No Cough, No Dry, No Shortness of breath, No SOB with excertion, No Wheezing, No Hemoptysis, No Pleuritic Pain, No Sputum, No Other Gastrointestinal: No Nausea, No Vomiting, No Abdominal Pain, No Diarrhea, No Constipation, No Melena, No Hematochezia, No Other Genitourinary: No Dysuria, No Frequency, No Incontinence, No Hematuria, No Retention, No Other Musculoskeletal: No other, No neck pain, No shoulder pain, No arm pain, No back pain, No hand pain, No leg pain, No foot pain Skin: No Rash, No Lesions, No Jaundice, No Bruising, No Other Objective Vitals Vital Signs Date Time Temp Pulse Resp B/P (MAP) Pulse Ox O2 Delivery O2 Flow Rate FiO2 01/26/25 13:00 98.1 63 16 95/52 (66) 96 98.1 01/26/25 08:00 Room Air* 0 21 Intake/Output Intake and Output 01/26/25 07:00 Intake Total 2390 ml Balance 2390 ml Intake Oral 2340 ml IV Total 50 ml # Voids 2 # Bowel Movements 3 General Appearance: Alert, Oriented X3, Cooperative, No acute distress HEENT: Atraumatic, PERRLA, EOMI, Mucous membr. moist/pink Lungs: Clear to auscultation Cardiovascular: Regular rate, Normal S1, Normal S2 Abdomen: Normal bowel sounds Psych/Mental Status: Mental status NL Medications Current Medications Medications Dose Ordered Sig/Anitha Route Start Time Stop Time Status Last Admin Dose Admin Acetaminophen/ Hydrocodone Bitart 1 tab Q4HP PRN PO 01/21/25 07:45 01/24/25 21:04 1 TAB Docusate Sodium 100 mg BIDPRN PRN PO 01/21/25 07:45 Acetaminophen 650 mg Q6HP PRN PO 01/21/25 07:45 Nitroglycerin 0.4 mg Q5MINP PRN SL 01/21/25 07:45 Morphine Sulfate 2 mg Q30M PRN IV 01/21/25 07:45 01/21/25 16:44 2 MG Insulin Glargine 30 units QAM SC 01/22/25 07:00 01/26/25 06:57 30 UNITS Metoclopramide HCl 10 mg Q6HPRN PRN IV 01/21/25 08:30 01/22/25 08:18 10 MG Dextrose 50 ml UD PRN IV 01/22/25 00:30 Ceftriaxone Sodium 50 ml @ 100 mls/hr DAILY@09 IV 01/23/25 09:00 01/26/25 09:39 100 MLS/HR Sucralfate 1 gm TID@0600,1130,2200 GT 01/22/25 22:00 01/26/25 12:02 1 GM Ondansetron HCl 4 mg Q4HPRN PRN IV 01/23/25 10:15 01/23/25 15:08 4 MG Pantoprazole Sodium 40 mg BID IV 01/23/25 22:00 01/26/25 09:36 40 MG Diagnostic Test (Pha) 1 strip ACHS 01/24/25 17:00 01/26/25 11:30 1 STRIP Insulin Human Regular ACHS SC 01/24/25 17:00 01/26/25 12:01 9 UNITS Laboratory Results Laboratory Tests 01/24/25 05:50 01/26/25 06:00 Chemistry Test 01/26/25 06:00 Calcium Level 8.8 mg/dL (8.7-10.4) Magnesium Level 2.0 mg/dL (1.6-2.6) Urinalysis Test 01/21/25 09:34 Urine Color Light-yellow (Yellow) Urine Clarity Clear (Clear) Urine pH 5.0 (5.0-9.0) Urine Specific [place] 1.022 (1.001-1.035) Urine Protein Trace (Negative) H Urine Ketones 4+ (Negative) H Urine Blood 1+ /uL (Negative) H Urine Nitrite Negative (Negative) Urine Bilirubin Negative (Negative) Urine Urobilinogen Normal mg/dL (Negative) Urine Leukocyte Esterase Negative /uL (Negative) Urine RBC <1 /hpf (0 - 3) Urine Microscopic WBC 1 /HPF (0-3) Urine Squamous Epithelial Cells Few /hpf (<5) Urine Bacteria None seen /hpf (None Seen) Urine Hyaline Casts Few /lpf (0 - 2) Urine Glucose 4+ mg/dL (Normal) H Microbiology Microbiology Date/Time Source Procedure Growth Status 01/22/25 15:36 Nose MRSA Screen - Final Complete Labs and/or images reviewed: Labs reviewed by me Assessment/Plan Assessment/Plan DKA: Resolved Erosive esophagitis Acute kidney injury due to vasomotor nephropathy Sirs Metabolic acidosis Hypokalemia Plan Replace potassium IV Advance diet to soft diet Continue Protonix and Carafate Monitor the patient in the hospital closely Check the electrolytes again in the morning Appreciate GI specialist help. Discharge planning when cleared by GI specialist, Dr. Stafford. This medical document was created using an electronic medical record system with [employer] direct computerized dictation system. Although this document has been carefully reviewed, there may still be some phonetic and typographical errors. These areas are purely typographical due to imperfections of the software programs, and do not reflect any compromise in the patient's medical care. Plan discussed with: Patient My Orders Orders - CHARLES PRASAD MD Procedure Category Date Status Time Mrsa Screen WALDO 01/26/25 In Process 11:07 Date of Service: Jan 26, 2025 Billing Provider: CHARLES PRASAD MD Common Visit Codes: [id number] INP/OBS CARE(HIGH) CHARLES PRASAD MD Jan 26, 2025 13:59
--- NOTE | 2025-01-26 17:59 | DVHPN2 ---
Progress Note - Dictate Date Seen: Jan 26, 2025 Medical Necessity Reason Pt with a Central, PICC or Fol: No Subjective No new complaints Patient is resting comfortably He is tolerating a diet vital signs Vital Sign Date Time Temp Pulse Resp B/P (MAP) Pulse Ox O2 Delivery O2 Flow Rate FiO2 01/26/25 17:00 99.1 70 18 109/67 (81) 99 99.1 01/26/25 08:00 Room Air* 0 21 Total Intake and Output 01/25/25 01/25/25 01/26/25 15:00 23:00 07:00 Intake Total 530 ml 960 ml 900 ml Balance 530 ml 960 ml 900 ml medications Current Medications Medications Dose Ordered Sig/Anitha Route Start Time Stop Time Status Last Admin Dose Admin Acetaminophen/ Hydrocodone Bitart 1 tab Q4HP PRN PO 01/21/25 07:45 01/24/25 21:04 1 TAB Docusate Sodium 100 mg BIDPRN PRN PO 01/21/25 07:45 Acetaminophen 650 mg Q6HP PRN PO 01/21/25 07:45 Nitroglycerin 0.4 mg Q5MINP PRN SL 01/21/25 07:45 Morphine Sulfate 2 mg Q30M PRN IV 01/21/25 07:45 01/21/25 16:44 2 MG Insulin Glargine 30 units QAM SC 01/22/25 07:00 01/26/25 06:57 30 UNITS Metoclopramide HCl 10 mg Q6HPRN PRN IV 01/21/25 08:30 01/22/25 08:18 10 MG Dextrose 50 ml UD PRN IV 01/22/25 00:30 Ceftriaxone Sodium 50 ml @ 100 mls/hr DAILY@09 IV 01/23/25 09:00 01/26/25 09:39 100 MLS/HR Sucralfate 1 gm TID@0600,1130,2200 GT 01/22/25 22:00 01/26/25 12:02 1 GM Ondansetron HCl 4 mg Q4HPRN PRN IV 01/23/25 10:15 01/23/25 15:08 4 MG Pantoprazole Sodium 40 mg BID IV 01/23/25 22:00 01/26/25 09:36 40 MG Diagnostic Test (Pha) 1 strip ACHS 01/24/25 17:00 3/1/25 17:00 1 STRIP Insulin Human Regular ACHS SC 01/24/25 17:00 01/26/25 17:51 6 UNITS objective General Appearance: Alert, Oriented X3, Cooperative, No acute distress HEENT: Atraumatic Lungs: Clear to auscultation Cardiovascular: Regular rate, Normal S1, Normal S2 Abdomen: Normal bowel sounds Psych/Mental Status: Mental status NL laboratory and microbiology Laboratory Tests 01/26/25 06:00 01/24/25 05:50 Test 01/26/25 06:00 Range/Units Serum Glucose 121 H 74-106 mg/dL Problems(with codes): (1) DKA (diabetic ketoacidosis) (2) Intractable vomiting (3) Dehydration Prognosis Plan Continue diet as tolerated Patient is stable from discharge from GI point of view Patient will be discharged on Protonix 40 mg p.o. q.a.m. Carafate 1 g p.o. q.h.s. Avoid aspirin NSAIDs smoking and alcohol Dietary Evaluation Review Comments: encourage him to stay on a CCHO-75 mechanical soft diet for consistent DM control. Temporary on mechanical soft diet d/t Erosive esophagitis, Expected Outcomes/Goals: controlled DM, wt gain, prevent recurring DKA. Plan discussed with: Patient, Other (Nurse Lexi) MARIO ALBERTO ZAPATA MD Jan 26, 2025 17:59
[2025-01-27] VITALS (7 sets, daily range): BP systolic 100–115; BP diastolic 57–84; PULSE 18–73; RESP 17–99; TEMP 97.9–98.4; O2SAT 94–100
[2025-01-27] MEDS ORDERED: INSLANTI SC (11:58)
--- NOTE | 2025-01-27 12:00 | DVHDS2 ---
Discharge Summary Date of Admission Jan 21, 2025 at 07:31 Date of Discharge: Jan 27, 2025 Admitting Diagnosis DKA Severe abdominal pain Acute kidney injury due to vasomotor nephropathy Sirs Metabolic acidosis Hypokalemia Labs/Diagnostic Data: Laboratory Results Test 01/27/25 11:37 01/26/25 06:00 01/24/25 05:50 01/23/25 06:51 POC Glucose 305 mg/dl (70-106) Sodium Level 139 mmol/L (136-145) Potassium Level 3.5 mmol/L (3.5-5.1) Chloride Level 102 mmol/L (98-107) Carbon Dioxide Level 28 mmol/L (20-31) Anion Gap 9 (5-15) Blood Urea Nitrogen 15 mg/dL (9-23) Creatinine 0.69 mg/dL (0.700-1.30) Glomerular Filtration Rate Calc 118 mL/min (>90) BUN/Creatinine Ratio 21.7 (10.0-20.0) Serum Glucose 121 mg/dL (74-106) Calcium Level 8.8 mg/dL (8.7-10.4) Magnesium Level 2.0 mg/dL (1.6-2.6) White Blood Count 6.5 10^3/uL (4.4-10.8) Red Blood Count 4.82 10^6/uL (4.5-5.90) Hemoglobin 14.3 g/dL (13.5-17.5) Hematocrit 42.5 % (41.0-53.0) Mean Corpuscular Volume 88.1 fL (80.0-100.0) Mean Corpuscular Hemoglobin 29.6 pg (28.0-32.0) Mean Corpuscular Hemoglobin Concent 33.6 g/dL (32.0-36.0) Red Cell Distribution Width 13.2 % (11.8-14.3) Platelet Count 187 10^3/uL (140-450) Mean Platelet Volume 7.9 fL (6.9-10.8) Neutrophils (%) (Auto) 46.8 % (37.0-80.0) Lymphocytes (%) (Auto) 37.5 % (10.0-50.0) Monocytes (%) (Auto) 11.3 % (0.0-12.0) Eosinophils (%) (Auto) 3.6 % (0.0-7.0) Basophils (%) (Auto) 0.8 % (0.0-2.0) Neutrophils # (Auto) 3.0 10 ^3/uL (1.6-8.6) Lymphocytes # (Auto) 2.4 10 ^3/uL (0.4-5.4) Monocytes # (Auto) 0.7 10 ^3/uL (0-1.3) Eosinophils # (Auto) 0.2 10 ^3/uL (0-0.8) Basophils # (Auto) 0.1 10 ^3/uL (0-0.2) Nucleated Red Blood Cells 0.1 % Total Bilirubin 1.1 mg/dL (0.2-1.0) Aspartate Amino Transferase (AST) 19 U/L (13-40) Alanine Aminotransferase (ALT) 23 U/L (7-40) Alkaline Phosphatase 102 U/L (46-116) Total Protein 6.9 g/dL (5.7-8.2) Albumin 4.1 g/dL (3.2-4.8) Test 01/21/25 09:34 01/21/25 08:20 01/21/25 04:50 01/21/25 04:37 Urine Color Light-yellow (Yellow) Urine Clarity Clear (Clear) Urine pH 5.0 (5.0-9.0) Urine Specific [place] 1.022 (1.001-1.035) Urine Protein Trace (Negative) Urine Ketones 4+ (Negative) Urine Blood 1+ /uL (Negative) Urine Nitrite Negative (Negative) Urine Bilirubin Negative (Negative) Urine Urobilinogen Normal mg/dL (Negative) Urine Leukocyte Esterase Negative /uL (Negative) Urine RBC <1 /hpf (0 - 3) Urine Microscopic WBC 1 /HPF (0-3) Urine Squamous Epithelial Cells Few /hpf (<5) Urine Bacteria None seen /hpf (None Seen) Urine Hyaline Casts Few /lpf (0 - 2) Urine Glucose 4+ mg/dL (Normal) Plasma/Serum Blood Alcohol < 3.0 mg/dL (<10) Blood Gas Specimen Type Arterial Blood Gas Sample Site Right radial Blood Gas Patient Temperature 37.0 Arterial Blood Date Drawn [id number] Arterial Blood pH 7.186 (7.350-7.450) Arterial Blood Partial Pressure CO2 17.4 mmHg (35.0-48.0) Arterial Blood Partial Pressure O2 85.7 mmHg (83.0-108.0) Arterial Blood HCO3 6.4 mmol/L (21.0-28.0) Arterial Blood Oxygen Saturation 96.2 % (94.0-98.0) Arterial Blood Base Excess -19.1 mmol/L (-2.0-3.0) Arterial Blood Oxyhemoglobin 95.0 % (94.0-98.0) Arterial Blood Carboxyhemoglobin 0.6 % (0.5-1.5) Arterial Blood Methemoglobin 0.6 % (0.0-1.5) Walker Test Yes Blood Gas Total Hemoglobin 17.70 g/dL (13.5-17.5) Blood Gas Modality Room air FiO2 % 21.0 Blood Gas Critical Value Read Back Yes Blood Gas Notified Whom Frank roy md Blood Gas Notified Time [id number] Blood Gas Notified By Ryan gerber rrt Differential Total Cells Counted 100.0 (100) Neutrophils % (Manual) 81 (37.0-80.0) Band Neutrophils % (Manual) 2 Lymphocytes % (Manual) 12 (10.0-50.0) Monocytes % (Manual) 5 (0-12) Eosinophils % (Manual) 0 (0-7) Basophils % (Manual) 0 (0.0-2.0) Metamyelocytes % (manual) 0 Myelocytes % (Manual) 0 Promyelocytes % (Manual) 0 Blast Cells % (Manual) 0 Reactive Lymphocytes 0 Platelet Estimate Adequate Prothrombin Time 10.4 sec (9.3-11.8) Prothrombin Time INR 0.98 (0.9-1.15) Activated Partial Thromboplast Time 25.0 SEC (24.5-34.5) Hemoglobin A1c 12.3 % A1C (<5.7) Serum Osmolality 356 mOsm/kg (278-298) Phosphorus Level 8.7 mg/dL (2.4-5.1) Beta-Hydroxybutyric Acid > 4.500 mmol/L (< 0.4) Other Laboratory Tests 01/26/25 06:00 01/24/25 05:50 Brief Hx & Hospital Course: This is a 44 years old male with past medical history diabetes, GERD came to emergency department because of intractable nausea, vomiting, and generalized weakness. The patient has stated that the symptoms began at Tuesday around noon and continuing to worsening prompting his family to call EMS. When EMS came his blood glucose was about 600. Patient take insulin at home to control his blood glucose. And he compliant to his regimen. The patient was admitted. The patient was found to have DKA . The patient was put on insulin drip and subsequently switched to sliding scale insulin and Lantus. The patient also has severe abdominal pain and unable to keep any food down. The patient had nausea and vomiting. GI specialist see the patient in did a EGD which showed erosive esophagitis. The patient was put on Protonix 40 mg IV b.i.d. and Carafate 3 times per days. Subsequently he doing better he able to tolerate clear liquid diet advanced to soft diet. Dr. Stafford discuss with me regarding to his case today. She cleared him for discharge. She recommend sending him home with Protonix and Carafate. She recommend to follow up with her in six weeks to eight weeks for repeat EGD. I also change his insulin regimen to 20 units twice per day. Follow up with primary care physician 1-2 weeks. Follow up with Dr. Stafford, GI specialist per schedule. Activity as tolerated. Physical exam: HEENT: Normocephalic atraumatic pupils equal react to light and accommodation. Extraocular muscles intact, conjunctiva pink, oropharynx moist, no thrush, no exudate. Lymphatic: No lymphadenopathy Cardiovascular exam: S1, S2 was heard. No murmurs, rubs, gallops Lung: Clear on auscultation bilaterally, no wheeze, rale, rhonchi. GI: Abdominal soft, nondistended, nontenderness, positive bowel sounds. Extremity: No crepitus, cyanosis, edema. Pedal pulses present bilateral. Full range of motion. Skin: Normal turgor, no rash. Psych: Alert, oriented x3. Neurology: No focal deficits, cranial nerve II to XII grossly intact. This medical document was created using an electronic medical record system with [employer] direct computerized dictation system. Although this document has been carefully reviewed, there may still be some phonetic and typographical errors. These areas are purely typographical due to imperfections of the software programs, and do not reflect any compromise in the patient's medical care. Condition at Discharge: Stable Final Diagnosis/Problems List DKA: Resolved Erosive esophagitis Acute kidney injury due to vasomotor nephropathy Sirs Metabolic acidosis Hypokalemia Discharge Disposition: Home Discharge Instruct/Medications Diet: Regular Activity: No Restrictions, As Tolerated Follow Up/Referral: pcp 1-[address] Stafford, GI per schedule Medications: resume home meds Lantus 20 units sq bid Discharge Statement: "Patient was advised to return to the ER or call 911 if any headaches, dizziness, shortness of breath, chest pain, abdominal pain, bleeding, fevers, or worsening of medical condition. Patient was counseled about treatment plan, medications, possible side effects, patientverbalized understanding. All questions were answered to the best of my ability. This discharge took greater then 30 minutes in planning, reviewing documentation, counseling the patient, and discussing with other team members." ASSESSMENT ASSESSMENT Assessment DKA Date of Service: Jan 27, 2025 Billing Provider: CHARLES PRASAD MD Common Visit Codes: [id number] DISCH DAY >30min CHARLES PRASAD MD Jan 27, 2025 12:00
--- NOTE | 2025-01-27 15:07 | DVHPN2 ---
Progress Note - Dictate Date Seen: Jan 27, 2025 Medical Necessity Reason Pt with a Central, PICC or Fol: No Subjective No new complaints Patient is resting comfortably He is tolerating a diet vital signs Vital Sign Date Time Temp Pulse Resp B/P (MAP) Pulse Ox O2 Delivery O2 Flow Rate FiO2 01/27/25 13:23 98.0 65 18 99 01/27/25 09:00 115/71 (86) 01/27/25 08:00 Room Air* 0 21 Total Intake and Output 01/26/25 01/26/25 01/27/25 14:59 22:59 06:59 Intake Total 410 ml 960 ml 600 ml Balance 410 ml 960 ml 600 ml medications Current Medications Medications Dose Ordered Sig/Anitha Route Start Time Stop Time Status Last Admin Dose Admin Acetaminophen/ Hydrocodone Bitart 1 tab Q4HP PRN PO 01/21/25 07:45 01/24/25 21:04 1 TAB Docusate Sodium 100 mg BIDPRN PRN PO 01/21/25 07:45 Acetaminophen 650 mg Q6HP PRN PO 01/21/25 07:45 Nitroglycerin 0.4 mg Q5MINP PRN SL 01/21/25 07:45 Morphine Sulfate 2 mg Q30M PRN IV 01/21/25 07:45 01/21/25 16:44 2 MG Insulin Glargine 30 units QAM SC 01/22/25 07:00 01/27/25 06:54 30 UNITS Metoclopramide HCl 10 mg Q6HPRN PRN IV 01/21/25 08:30 01/22/25 08:18 10 MG Dextrose 50 ml UD PRN IV 01/22/25 00:30 Ceftriaxone Sodium 50 ml @ 100 mls/hr DAILY@09 IV 01/23/25 09:00 01/27/25 08:56 100 MLS/HR Sucralfate 1 gm TID@0600,1130,2200 GT 01/22/25 22:00 01/27/25 12:06 1 GM Ondansetron HCl 4 mg Q4HPRN PRN IV 01/23/25 10:15 01/23/25 15:08 4 MG Pantoprazole Sodium 40 mg BID IV 01/23/25 22:00 01/27/25 08:56 40 MG Diagnostic Test (Pha) 1 strip ACHS 01/24/25 17:00 01/27/25 12:06 1 STRIP Insulin Human Regular ACHS SC 01/24/25 17:00 01/27/25 12:08 12 UNITS objective General Appearance: Alert, Oriented X3, Cooperative, No acute distress HEENT: Atraumatic Lungs: Clear to auscultation Cardiovascular: Regular rate, Normal S1, Normal S2 Abdomen: Normal bowel sounds Psych/Mental Status: Mental status NL laboratory and microbiology Laboratory Tests 01/26/25 06:00 01/24/25 05:50 Test 01/26/25 06:00 Range/Units Serum Glucose 121 H 74-106 mg/dL Problems(with codes): (1) Hiatal hernia with GERD and esophagitis (2) Intractable vomiting (3) Dehydration (4) DKA (diabetic ketoacidosis) Prognosis PLAN Continue diet as tolerated Patient is stable from discharge from GI point of view Patient will be discharged on Protonix 40 mg p.o. q.a.m. Carafate 1 g p.o. q.h.s. Avoid aspirin NSAIDs smoking and alcohol Dietary Evaluation Review Comments: encourage him to stay on a CCHO-75 mechanical soft diet for consistent DM control. Temporary on mechanical soft diet d/t Erosive esophagitis, Expected Outcomes/Goals: controlled DM, wt gain, prevent recurring DKA. Plan discussed with: Patient, Other (Dr Perdomo) MARIO ALBERTO ZAPATA MD Jan 27, 2025 15:07
== END 2025-01-27 16:33 | disposition home or self-care (01) | DRG 243 ==
LOC: ER 03:55 → EDBD 03:55 → OVERFLOW 07:31 → TELE-EAST 01-22 15:35 → EAST 01-22 20:31
PROVIDERS: ADMIT Internal Medicine Geriatric Medicine; ATTEND Internal Medicine Geriatric Medicine
DX: K22.10 Ulcer of esophagus without bleeding (principal); N17.0 Acute kidney failure with tubular necrosis; R65.11 Systemic inflammatory response syndrome (SIRS) of non-infectious origin with acute organ dysfunction; E11.10 Type 2 diabetes mellitus with ketoacidosis without coma; E86.0 Dehydration; E87.6 Hypokalemia; K44.9 Diaphragmatic hernia without obstruction or gangrene; F17.210 Nicotine dependence, cigarettes, uncomplicated; K21.00 Gastro-esophageal reflux disease with esophagitis, without bleeding; Z79.4 Long term (current) use of insulin; Z79.899 Other long term (current) drug therapy; R63.6 Underweight; Z68.1 Body mass index [BMI] 19.9 or less, adult
CPT/HCPCS: 36415; 36600; 71045; 80048; 80053; 80320; 81001; 82010; 82805; 82962; 83036; 83735; 83930; 84100; 85007; 85025; 85027; 85610; 85730; 87081; 96361; 96365; 96375; 96376; 99291; G0378; J1815; J2003; J2405; J2470; J3480

== ENCOUNTER 2025-09-15 10:02 | Inpatient (IN) | payer MEDICAID, OTHER ==
[~2025-09-15] VITALS: Ht 172.7 cm; Wt 68.5 kg
[~2025-09-15 10:02] MED LIST changes: +INSLANTI SC; -INSU100I70 SC; -INSU70IN3 SC; +INSUINJ37 SC; +OMEP-448 PO
--- NOTE | 2025-09-15 11:08 | ED.PDOC ---
History of present illness HPI Comments 45 y.o male with PMHX of DMT1, presents to the ED for a chief complaint of nausea, hematemesis, and body pain that started today at 0400. Patient reports for the past 2-3 days, blood glucose levels have been elevated despite medication compliance. Patient denies any SOB, chest pain, fever, chills, diarrhea. Chief Complaint: Nausea/Vomiting Time Seen by MD: 10:45 History of present illness: Nurses Notes, Medications, Allergies Allergies: Coded Allergies: No Known Drug Allergy (Unverified Allergy, Unknown, 08/05/23) Home Meds Active Scripts Insulin Glargine (Lantus) 100 Unit/Ml Inj, 25 UNIT SC BID, #1 BOT 5 Refills Prov:CHARLES PRASAD MD 01/27/25 Sucralfate (CARAFATE) 1 Gm Tab, 1 GM PO QID for 30 Days, #120 TAB Prov:BRADLEY TOMAS MD 01/22/25 Pantoprazole Sodium Sesquihydr (Pantoprazole Sodium) 40 Mg Tab, 40 MG PO BID for 30 Days, #60 TAB Prov:BRADLEY TOMAS MD 01/22/25 Folic Acid (Folic Acid) 1 Mg Tab, 1 MG PO DAILY, #30 TAB Prov:JOHNNA NAVARRO MD 08/02/24 Thiamine HCl (Thiamine Hydrochloride) 100 Mg Tab, 100 MG PO DAILY, #30 TAB Prov:JOHNNA NAVARRO MD 08/02/24 Information Source: Patient Mode of Arrival: Ambulatory Timing: Hours Duration: Since onset [place]: None History of: Diabetes, Insulin use Modifying factors: Nothing Associated signs and symptoms: Nausea, Vomiting Past Medical History PAST MEDICAL HISTORY: DM Surgical History: Denies all surgeries Family History Family History: Unknown Social History Smoker: Non-Smoker Alcohol: Occasionally Drugs: Denies Drug Use Lives In: Home Constitutional: denies: chills, diaphoresis, fatigue, fever, malaise, sweats, weakness, others EENTM: denies: blurred vision, double vision, ear bleeding, ear discharge, ear drainage, ear pain, ear ringing, eye pain, eye redness, hearing loss, mouth pain, mouth swelling, nasal discharge, nose bleeding, nose congestion, nose pain, photophobia, tearing, throat pain, throat swelling, voice changes, others Respiratory: denies: cough, hemoptysis, orthopnea, SOB at rest, shortness of breath, SOB with excertion, stridor, wheezing, others Cardiovascular: denies: chest pain, dizzy spells, diaphoresis, Dyspnea on exertion, edema, irregular heart beat, left arm pain, lightheadedness, palpitations, PND, syncope, others Gastrointestinal: reports: hematemesis, nausea, vomiting; denies: abdomen distended, abdominal pain, blood streaked bowels, constipated, diarrhea, dysphagia, difficulty swallowing, melena, poor appetite, poor fluid intake, rectal bleeding, rectal pain, others Genitourinary: denies: burning, dysuria, flank pain, frequency, hematuria, incontinence, penile discharge, penile sore, pain, testicle pain, testicle swelling, urgency, others Neurological: denies: dizziness, fainting, headache, left sided numbness, left sided weakness, numbness, paresthesia, pre-existing deficit, right sided numbness, right sided weakness, seizure, speech problems, tingling, tremors, weakness, others Musculoskeletal: reports: muscle pain; denies: back pain, gout, joint pain, joint swelling, muscle stiffness, neck pain, others Integumetry: denies: bruises, change in color, change in hair/nails, dryness, laceration, lesions, lumps, rash, wounds, others Allergic/Immunocompromised: denies: Difficulty Healing, Frequent Infections, Hives, Itching, others Hematologic/Lymphatic: denies: anemia, blood clots, easy bleeding, easy bruising, swollen glands, others Endocrine: denies: excessive hunger, excessive sweating, excessive thirst, excessive urination, flushing, intolerance to cold, intolerance to heat, unexplained weight gain, unexplained weight loss, others Psychiatric: denies: anxiety, bipolar disorder, depression, hopeless, panic disorder, schizophrenia, sleepless, suicidal, others All Other Systems: Reviewed and Negative Physical Exam General Appearance: Moderate Distress HEENT: Normal ENT Inspection, Pharynx Normal, TMs Normal Neck: Full Range of Motion, Non-Tender, Normal, Normal Inspection Respiratory: Chest Non-Tender, Lungs Clear, No Accessory Muscle Use, No Respiratory Distress, Normal Breath Sounds Cardiovascular: Tachycardia Breast Exam: Deferred Gastrointestinal: No Organomegaly, Non Tender, No Pulsatile Mass, Normal Bowel Sounds, Soft Genitalia: Deferred Pelvic: Deferred Rectal: Deferred Extremities: No calf tenderness, Normal capillary refill, Normal inspection, Normal range of motion, Non-tender, No pedal edema Musculoskeletal : Apperance: Normal Neurologic: Alert, aerodynamic consultant II-XII nml as Tested, No Motor Deficits, Normal Affect, Normal Mood, No Sensory Deficits Cerebellar Function: NOT DONE Reflexes: NOT DONE Skin: Dry, Normal Color, Warm Peripheral Pulses: 3+ Radial (R), 3+ Radial (L) Lymphatic: No Adenopathy Was a procedure done? Was a procedure done?: No Differential Diagnosis (DM) Differential Diagnosis: Dehydration, Diabetic Coma, DKA, Electrolyte Abnormality, Gastroenteritis, Hyperglycemia, Hyperosmolar State, Pancreatitis X-Ray, Labs, Meds, VS Vital Signs Date Time Temp Pulse Resp B/P (MAP) Pulse Ox O2 Delivery O2 Flow Rate FiO2 09/15/25 11:37 99 16 95 Room Air* 0 21 09/15/25 11:36 98.4 99 16 124/76 (92) 95 98.4 09/15/25 10:04 99.3 97 15 148/93 100 99.3 Lab Test 09/15/25 12:55 09/15/25 11:35 09/15/25 11:26 09/15/25 11:20 Range/Units POC Glucose 356 H 331 H 70-106 mg/dl White Blood Count 20.7 H 4.4-10.8 10^3/uL Red Blood Count 5.66 4.5-5.90 10^6/uL Hemoglobin 17.0 13.5-17.5 g/dL Hematocrit 53.0 41.0-53.0 % Mean Corpuscular Volume 93.6 80.0-100.0 fL Mean Corpuscular Hemoglobin 30.0 28.0-32.0 pg Mean Corpuscular Hemoglobin Concent 32.0 32.0-36.0 g/dL Red Cell Distribution Width 14.1 11.8-14.3 % Platelet Count 267 140-450 10^3/uL Mean Platelet Volume 8.3 6.9-10.8 fL Neutrophils (%) (Auto) 81.5 H 37.0-80.0 % Lymphocytes (%) (Auto) 12.7 10.0-50.0 % Monocytes (%) (Auto) 4.9 0.0-12.0 % Eosinophils (%) (Auto) 0.4 0.0-7.0 % Basophils (%) (Auto) 0.5 0.0-2.0 % Neutrophils # (Auto) 16.9 H 1.6-8.6 10 ^3/uL Lymphocytes # (Auto) 2.6 0.4-5.4 10 ^3/uL Monocytes # (Auto) 1.0 0-1.3 10 ^3/uL Eosinophils # (Auto) 0.1 0-0.8 10 ^3/uL Basophils # (Auto) 0.1 0-0.2 10 ^3/uL Nucleated Red Blood Cells 0.1 % Sodium Level 136 136-145 mmol/L Potassium Level 4.3 3.5-5.1 mmol/L Chloride Level 101 98-107 mmol/L Carbon Dioxide Level < 10 *L 20-31 mmol/L Anion Gap 25.43125 H 5-15 Blood Urea Nitrogen 17 9-23 mg/dL Creatinine 1.10 0.700-1.30 mg/dL Glomerular Filtration Rate Calc 85 >90 mL/min BUN/Creatinine Ratio 15.5 10.0-20.0 Serum Glucose 354 H 74-106 mg/dL Hemoglobin A1c 11.5 H <5.7 % A1C Serum Osmolality 333 H 278-298 mOsm/kg Calcium Level 10.5 H 8.7-10.4 mg/dL Phosphorus Level 4.0 2.4-5.1 mg/dL Magnesium Level 2.2 1.6-2.6 mg/dL Triglycerides Level 872 H < 150 mg/dL Cholesterol Level 319 H < 200 mg/dL LDL Cholesterol < 100 mg/dL HDL Cholesterol 40 40-59 mg/dL Beta-Hydroxybutyric Acid > 4.500 H < 0.4 mmol/L Urine Color Light-yellow Yellow Urine Clarity Clear Clear Urine pH 5.5 5.0-9.0 Urine Specific [place] 1.026 1.001-1.035 Urine Protein Trace H Negative Urine Ketones 4+ H Negative Urine Blood Negative Negative /uL Urine Nitrite Negative Negative Urine Bilirubin Negative Negative Urine Urobilinogen Normal Negative mg/dL Urine Leukocyte Esterase Negative Negative /uL Urine RBC 1 0 - 3 /hpf Urine Microscopic WBC < 1 0-3 /HPF Urine Squamous Epithelial Cells None seen <5 /hpf Urine Bacteria None seen None Seen /hpf Urine Glucose 4+ H Normal mg/dL Test 09/15/25 11:11 Range/Units Blood Gas Specimen Type Arterial Blood Gas Sample Site Right radial Blood Gas Patient Temperature 37.0 Arterial Blood Date Drawn Arterial Blood pH 7.188 *L 7.350-7.450 Arterial Blood Partial Pressure CO2 19.9 *L 35.0-48.0 mmHg Arterial Blood Partial Pressure O2 115.4 H 83.0-108.0 mmHg Arterial Blood HCO3 7.4 L 21.0-28.0 mmol/L Arterial Blood Oxygen Saturation 97.5 94.0-98.0 % Arterial Blood Base Excess -18.4 L -2.0-3.0 mmol/L Arterial Blood Oxyhemoglobin 96.0 94.0-98.0 % Arterial Blood Carboxyhemoglobin 0.9 0.5-1.5 % Arterial Blood Methemoglobin 0.6 0.0-1.5 % Walker Test Yes Blood Gas Total Hemoglobin 17.00 13.5-17.5 g/dL Blood Gas Modality Room air FiO2 % 21.0 Blood Gas Critical Value Read Back Yes Blood Gas Notified Whom Raji crooks Blood Gas Notified Time [id number] Blood Gas Notified By Afia mays Current Medications Medications (Trade) Dose Ordered Sig/Anitha Route Start Time Stop Time Status Last Admin Sodium Chloride 1,000 ml @ 500 mls/hr Q2H IV 09/15/25 11:15 09/15/25 15:14 DC 09/15/25 13:15 Insulin Human (Reg)/Sodium Chloride 100 ml @ 0.5 mls/hr Q24H IV 09/15/25 11:15 09/15/25 13:02 Diagnostic Test (Pha) (Accu-Chek Comfort Curve T) 1 strip Q90MIN 09/15/25 12:00 09/15/25 15:42 Insulin Glargine (Lantus) 15 units ONCE ONCE SC 09/15/25 11:15 09/15/25 11:16 DC 09/15/25 13:02 Ondansetron HCl (Zofran) 4 mg ONCE ONCE IV 09/15/25 11:45 09/15/25 11:46 DC 09/15/25 11:44 Patient alert. Blood sugar elevated. Possible DKA. Vitals stable. Establish intravenous access. Was given fluids. Was given insulin. ABG does show acidosis. Explained to the patient. Continue monitoring. Time of 1ST Reevaluation: 11:08 Reevaluation 1ST: Unchanged Patient Education/Counseling: Diagnosis, Treatment, Prognosis Family Education/Counseling: No Family Present SEPSIS Sepsis Screen Date sepsis recognized/suspect: Sep 15, 2025 Time Sepsis recognized/suspect: 1006 Recent Procedure: No On Antibiotic Therapy: No Respiratory Rate >20: No Heart Rate >90: No Temp<36 C (96.8 F) or >38.3 C: No SBP <90 or MAP <65 mmHG: No New Acute Mental Status Change: No Is the patient on CPAP, BIPAP,: No Physician Orders Insulin Drip Protocol (09/15/25 ) Sodium Chloride 0.9% (09/15/25 17:15) Insulin Drip 100 Unit/100ml (Myxredlin 1 (09/15/25 11:15) Dextrose 50% Syringe (09/15/25 11:15) Glucose Blood (Accu-Chek Comfort Curve T (09/15/25 12:00) Abg W/ Co-Ox (09/15/25 11:01) Basic Metabolic Panel (09/15/25 23:01) Basic Metabolic Panel (09/16/25 05:01) Neurological Assessment (09/15/25 11:01) Vs/Hemodynamics .PER UNIT PROTOCOL (09/15/25 11:01) Insulin Lantus (Glargine) (Lantus) (09/16/25 10:00) Vital Signs Date Time Temp Pulse Resp B/P (MAP) Pulse Ox O2 Delivery O2 Flow Rate FiO2 09/15/25 11:37 99 16 95 Room Air* 0 21 09/15/25 11:36 98.4 99 16 124/76 (92) 95 98.4 09/15/25 10:04 99.3 97 15 148/93 100 99.3 Laboratory Tests Test 09/15/25 11:35 White Blood Count 20.7 10^3/uL (4.4-10.8) H Medications Medications Dose Ordered Sig/Anitha Route Start Time Stop Time Status Last Admin Dose Admin Diagnostic Test (Pha) 1 strip Q90MIN 09/15/25 12:00 09/15/25 15:42 Insulin Glargine 15 units ONCE ONCE SC 09/15/25 11:15 09/15/25 11:16 DC 09/15/25 13:02 Insulin Human (Reg)/Sodium Chloride 100 ml @ 0.5 mls/hr Q24H IV 09/15/25 11:15 09/15/25 13:02 Ondansetron HCl 4 mg ONCE ONCE IV 09/15/25 11:45 09/15/25 11:46 DC 09/15/25 11:44 Sodium Chloride 1,000 ml @ 500 mls/hr Q2H IV 09/15/25 11:15 09/15/25 15:14 DC 09/15/25 13:15 Departure 1 Departure Time of Disposition: 17:36 Impression: Primary Impression: DKA (diabetic ketoacidosis) Qualified Codes: E13.10 - Other specified diabetes mellitus with ketoacidosis without coma Disposition: ADMITTED INPATIENT Admit to: Med Surg Condition: Guarded Critical Care Note Critical Care Time?: Yes (90 min-critical care time only) Stability Stability form required: No I personally scribed for ALVIN HANEY MD ([email or web address]) on 09/15/25 at 11:08. Electronically submitted by Cindy Alcantara ([facility]). ALVIN HANEY MD Sep 15, 2025 11:08
[2025-09-15] MEDS ORDERED: DEXTROSE (50%) 50ML SYRG IV PRN (11:15)
[2025-09-15 11:17] LABS: Base Excess -18.4 mmol/L (-2.0-3.0)
[2025-09-15] MEDS: SODIUM CHLORIDE 0.9% 1,000 ML IV SCH ×3 (11:34→17:26)
[2025-09-15 11:37] VITALS: PULSE 99; RESP 16; O2SAT 95
[2025-09-15] MEDS: ONDANSETRON HCL 4 MG/2 ML VIAL IV ONE (11:44)
[2025-09-15 11:54] LABS: Urine Protein, UAD TRACE (Negative)
[2025-09-15 11:58] LABS: Hematocrit 53.0 % (41.0-53.0); Hemoglobin 17.0 g/dL (13.5-17.5); Mean Corpuscular Hemoglobin 30.0 pg (28.0-32.0); Mean Corpuscular Volume 93.6 fL (80.0-100.0); Nucleated Red Blood Cells % 0.1 %
[2025-09-15] MEDS: ACCU-CHEK COMFORT CURVE STRIP VI SCH (12:00)
[2025-09-15 12:03] LABS: Chloride 101 mmol/L (98-107); Potassium 4.3 mmol/L (3.5-5.1); Sodium 136 mmol/L (136-145)
[2025-09-15 12:04] LABS: Anion Gap 25.00001 (5-15)
[2025-09-15 12:09] LABS: BUN/Creatinine Ratio 15.5 (10.0-20.0); Blood Urea Nitrogen 17 mg/dL (9-23); Calcium 10.5 mg/dL (8.7-10.4); Glucose 354 mg/dL (74-106)
[2025-09-15 12:10] LABS: Magnesium 2.2 mg/dL (1.6-2.6)
[2025-09-15 12:11] LABS: Carbon Dioxide < 10 mmol/L (20-31)
[2025-09-15] MEDS: INSULIN DRIP 100 UNIT/100ML 100 ML IV SCH (13:02)
[2025-09-15] MEDS: INSULIN LANTUS (GLARGINE) 1 /0.01ml (100units/ml) SC ONE (13:02)
--- NOTE | 2025-09-15 13:11 | DVHHP2 ---
History of Present Illness History of Present Illness Patient is a 45-year-old male who came to the hospital with a chief complaint of intractable nausea and vomiting and generalized body pain. As per patient he started having intractable nausea and vomiting earlier morning at 4:00 a.m., associated with abdominal pain which is burning in nature, yellowish vomitus without blood. As per patient he usually drinks alcohol less well, last drink was on , mainly beers. With initial evaluation patient found to have diabetic ketoacidosis with severe anion gap, pH of 7.168, initiated on IV insulin, IV fluid. Patient denying any other symptoms at this point. With IV hydration and insulin, nausea and vomiting significantly improving. Patient denying any other complaints including chest pain, shortness of breath, motor weakness, fever, chills, any other symptoms. Past medical history: Diabetes mellitus type 2, erosive esophagitis Surgical history: Denies Family history: Noncontributory Social history: Drinks alcohol regularly Allergies: Denies Home medication: Insulin Lantus 30 units q.h.s., lispro before each meal. Review of Systems Constitutional: No: Fever, Chills, Sweats, Weakness, Malaise, Other Eyes: No: Pain, Vision change, Conjunctivae inflammation, Eyelid inflammation, Other, Redness ENT: No: Ear pain, Ear discharge, Nose pain, Nose discharge, Nose congestion, Mouth pain, Mouth swelling, Throat pain, Throat swelling, Other Respiratory: No: Cough, Dry, Shortness of breath, SOB with excertion, Wheezing, Hemoptysis, Pleuritic Pain, Sputum, Wheezing, Other Cardiovascular: No: Chest Pain, Palpitations, Orthopnea, Paroxysmal Noc. Dyspnea, Edema, Lt Headedness, Other Gastrointestinal: Nausea, Vomiting, Abdominal Pain Genitourinary: No Dysuria, No Frequency, No Incontinence, No Hematuria, No Retention, No Other Musculoskeletal: No: other, neck pain, shoulder pain, arm pain, back pain, hand pain, leg pain, foot pain Skin: No: Rash, Lesions, Jaundice, Bruising, Other Neurological: No: Weakness, Numbness, Incoordination, Change in speech, Confusion, Seizures, Other Allergies: Coded Allergies: No Known Drug Allergy (Unverified Allergy, Unknown, 08/05/23) Medications Current Medications Medications Dose Ordered Sig/Anitha Route Start Time Stop Time Status Last Admin Dose Admin Sodium Chloride 1,000 ml @ 500 mls/hr Q2H IV 09/15/25 11:15 09/15/25 15:14 09/15/25 11:34 500 MLS/HR Sodium Chloride 1,000 ml @ 250 mls/hr Q4H IV 09/15/25 15:15 09/15/25 17:14 Sodium Chloride 1,000 ml @ 150 mls/hr Q6H40M IV 09/15/25 17:15 Insulin Human (Reg)/Sodium Chloride 100 ml @ 0.5 mls/hr Q24H IV 09/15/25 11:15 09/15/25 13:02 4 MLS/HR Dextrose 50 ml UD PRN IV 09/15/25 11:15 Diagnostic Test (Pha) 1 strip Q90MIN 09/15/25 12:00 09/15/25 12:00 1 STRIP Insulin Glargine 15 units DAILY SC 09/16/25 10:00 Metoclopramide HCl 10 mg Q4HP PRN IV 09/15/25 13:15 UNV Ondansetron HCl 4 mg Q4HP PRN IV 09/15/25 13:15 UNV Enoxaparin Sodium 40 mg DAILY SC 09/16/25 10:00 UNV Nitroglycerin 0.4 mg Q5MINP PRN SL 09/15/25 13:15 UNV Morphine Sulfate 2 mg Q30M PRN IV 09/15/25 13:15 UNV Pantoprazole Sodium 40 mg BID IV 09/15/25 22:00 UNV Exam Vital Signs Vital Signs Date Time Temp Pulse Resp B/P (MAP) Pulse Ox O2 Delivery O2 Flow Rate FiO2 09/15/25 11:37 99 16 95 Room Air* 0 21 09/15/25 11:36 98.4 124/76 (92) 98.4 Exam General Appearance: Cooperative. Well developed. Well nourished. NAD Head Exam: Normal inspection Neck Exam: Normal inspection. Non-tender. Normal alignment Pulmonary/Respiratory: Chest non-tender. Clear bilateral breath sounds Cardiovascular/Chest: Regular rate and rhythm. No murmurs. No JVD. Peripheral Pulses: 2+ Radial (R). 2+ Radial (L). 2+ Pedal (R). 2+ Pedal (L) Abdominal Exam: Normal bowel sounds. Soft. Nontender. No hepatospenomegaly. No masses Ankle Exam: Negative ankle edema Lower extremities: Negative lower extremity edema Neuro/Mental Status: A&O x4. Coherent Thoughts/Psych: Normal thought pattern. Appropriate mood and affect. Good judgement and insight Appearance: In no acute distress Skin Exam: Normal inspection. Normal color. Warm. Dry Labs/Xrays Labs Test 09/15/25 12:55 09/15/25 11:35 09/15/25 11:26 09/15/25 11:11 Range/Units White Blood Count 20.7 H 4.4-10.8 10^3/uL Red Blood Count 5.66 4.5-5.90 10^6/uL Hemoglobin 17.0 13.5-17.5 g/dL Hematocrit 53.0 41.0-53.0 % Mean Corpuscular Volume 93.6 80.0-100.0 fL Mean Corpuscular Hemoglobin 30.0 28.0-32.0 pg Mean Corpuscular Hemoglobin Concent 32.0 32.0-36.0 g/dL Red Cell Distribution Width 14.1 11.8-14.3 % Platelet Count 267 140-450 10^3/uL Mean Platelet Volume 8.3 6.9-10.8 fL Neutrophils (%) (Auto) 81.5 H 37.0-80.0 % Lymphocytes (%) (Auto) 12.7 10.0-50.0 % Monocytes (%) (Auto) 4.9 0.0-12.0 % Eosinophils (%) (Auto) 0.4 0.0-7.0 % Basophils (%) (Auto) 0.5 0.0-2.0 % Neutrophils # (Auto) 16.9 H 1.6-8.6 10 ^3/uL Lymphocytes # (Auto) 2.6 0.4-5.4 10 ^3/uL Monocytes # (Auto) 1.0 0-1.3 10 ^3/uL Eosinophils # (Auto) 0.1 0-0.8 10 ^3/uL Basophils # (Auto) 0.1 0-0.2 10 ^3/uL Nucleated Red Blood Cells 0.1 % Sodium Level 136 136-145 mmol/L Potassium Level 4.3 3.5-5.1 mmol/L Chloride Level 101 98-107 mmol/L Carbon Dioxide Level < 10 *L 20-31 mmol/L Anion Gap 25.18251 H 5-15 Blood Urea Nitrogen 17 9-23 mg/dL Creatinine 1.10 0.700-1.30 mg/dL Glomerular Filtration Rate Calc 85 >90 mL/min BUN/Creatinine Ratio 15.5 10.0-20.0 Serum Glucose 354 H 74-106 mg/dL Serum Osmolality 333 H 278-298 mOsm/kg Calcium Level 10.5 H 8.7-10.4 mg/dL Phosphorus Level 4.0 2.4-5.1 mg/dL Magnesium Level 2.2 1.6-2.6 mg/dL Beta-Hydroxybutyric Acid > 4.500 H < 0.4 mmol/L Urine Color Light-yellow Yellow Urine Clarity Clear Clear Urine pH 5.5 5.0-9.0 Urine Specific [place] 1.026 1.001-1.035 Urine Protein Trace H Negative Urine Ketones 4+ H Negative Urine Blood Negative Negative /uL Urine Nitrite Negative Negative Urine Bilirubin Negative Negative Urine Urobilinogen Normal Negative mg/dL Urine Leukocyte Esterase Negative Negative /uL Urine RBC 1 0 - 3 /hpf Urine Microscopic WBC < 1 0-3 /HPF Urine Squamous Epithelial Cells None seen <5 /hpf Urine Bacteria None seen None Seen /hpf Urine Glucose 4+ H Normal mg/dL Blood Gas Specimen Type Arterial Blood Gas Sample Site Right radial Blood Gas Patient Temperature 37.0 Arterial Blood Date Drawn [id number] Arterial Blood pH 7.188 *L 7.350-7.450 Arterial Blood Partial Pressure CO2 19.9 *L 35.0-48.0 mmHg Arterial Blood Partial Pressure O2 115.4 H 83.0-108.0 mmHg Arterial Blood HCO3 7.4 L 21.0-28.0 mmol/L Arterial Blood Oxygen Saturation 97.5 94.0-98.0 % Arterial Blood Base Excess -18.4 L -2.0-3.0 mmol/L Arterial Blood Oxyhemoglobin 96.0 94.0-98.0 % Arterial Blood Carboxyhemoglobin 0.9 0.5-1.5 % Arterial Blood Methemoglobin 0.6 0.0-1.5 % Walker Test Yes Blood Gas Total Hemoglobin 17.00 13.5-17.5 g/dL Blood Gas Modality Room air FiO2 % 21.0 Blood Gas Critical Value Read Back Yes Blood Gas Notified Whom Raji crooks Blood Gas Notified Time [id number] Blood Gas Notified By Afia mays SEPSIS Sepsis Screen Date sepsis recognized/suspect: Sep 15, 2025 Time Sepsis recognized/suspect: 1005 Recent Procedure: No On Antibiotic Therapy: No Respiratory Rate >20: No Heart Rate >90: No Temp<36 C (96.8 F) or >38.3 C: No SBP <90 or MAP <65 mmHG: No New Acute Mental Status Change: No Is the patient on CPAP, BIPAP,: No Physician Orders Insulin Drip Protocol (09/15/25 ) Sodium Chloride 0.9% (09/15/25 11:15) Sodium Chloride 0.9% (09/15/25 15:15) Sodium Chloride 0.9% (09/15/25 17:15) Insulin Drip 100 Unit/100ml (Myxredlin 1 (09/15/25 11:15) Dextrose 50% Syringe (09/15/25 11:15) Glucose Blood (Accu-Chek Comfort Curve T (09/15/25 12:00) Abg W/ Co-Ox (09/15/25 11:01) Basic Metabolic Panel (09/15/25 23:01) Basic Metabolic Panel (09/16/25 05:01) Neurological Assessment (09/15/25 11:01) Vs/Hemodynamics .PER UNIT PROTOCOL (09/15/25 11:01) Insulin Lantus (Glargine) (Lantus) (09/16/25 10:00) Admit (09/15/25 13:02) Code Status (09/15/25 13:02) Vital Signs .PER UNIT PROTOCOL (09/15/25 13:02) Review Orders With Adm. (09/15/25 13:02) Npo (Nothing By Mouth) Diet (09/15/25 Lunch) Metoclopramide Injection (Reglan Injecti (09/15/25 13:15) Notify Md Of Changes From Base (09/15/25 13:02) Advance Directive (09/15/25 13:02) Kub Abdomen Single View (09/15/25 13:02) Lipid Panel (09/15/25 13:02) Blood Culture (09/15/25 13:02) Patient Condition (09/15/25 13:02) Allergies (09/15/25 13:02) Ondansetron Hcl (Zofran) (09/15/25 13:15) Drug Screen (09/15/25 13:02) Hemoglobin A1c (09/15/25 13:02) Enoxaparin Sodium (Lovenox) (09/16/25 10:00) Nitroglycerin Sublingual (Ntrostat Subli (09/15/25 13:15) Morphine Sulfate Injection (09/15/25 13:15) Oxygen By Nasal Cannula (09/15/25 13:02) Stat Ekg For Chest Pain (09/15/25 13:02) Notify Md Of Changes From Base (09/15/25 13:02) Fashion Consultant Sales For 24 Hours (09/15/25 13:02) Emergency Dysrhythmia Protocol (09/15/25 13:02) Rhythm Strips Once Every Shift (09/15/25 13:02) Basic Metabolic Panel (09/15/25 15:00) Sodium Bicarb 50meq/50ml Vial (09/15/25 13:15) Chest Xray 1 View (09/15/25 13:02) Lipase (09/15/25 13:02) Lactic Acid W/ Reflex Order (09/15/25 13:02) Thyroid Stimulating Hormone (09/15/25 13:02) Vitamin B12 (09/15/25 13:02) Folate (Folic Acid) (09/15/25 13:02) Pantoprazole (Protonix) (09/15/25 13:15) Pantoprazole (Protonix) (09/15/25 22:00) * Gi Dvh Fruit Sprayer (09/15/25 13:02) Piperacillin-Tazob 3.375gm (Zosyn 3.375g (09/15/25 13:15) Vital Signs Date Time Temp Pulse Resp B/P (MAP) Pulse Ox O2 Delivery O2 Flow Rate FiO2 09/15/25 11:37 99 16 95 Room Air* 0 21 09/15/25 11:36 98.4 99 16 124/76 (92) 95 98.4 09/15/25 10:04 99.3 97 15 148/93 100 99.3 Laboratory Tests Test 09/15/25 11:35 White Blood Count 20.7 10^3/uL (4.4-10.8) H Medications Medications Dose Ordered Sig/Anitha Route Start Time Stop Time Status Last Admin Dose Admin Diagnostic Test (Pha) 1 strip Q90MIN 09/15/25 12:00 09/15/25 12:00 1 STRIP Insulin Glargine 15 units ONCE ONCE SC 09/15/25 11:15 09/15/25 11:16 DC 09/15/25 13:02 15 UNITS Insulin Human (Reg)/Sodium Chloride 100 ml @ 0.5 mls/hr Q24H IV 09/15/25 11:15 09/15/25 13:02 4 MLS/HR Ondansetron HCl 4 mg ONCE ONCE IV 09/15/25 11:45 09/15/25 11:46 DC 09/15/25 11:44 4 MG Sodium Chloride 1,000 ml @ 500 mls/hr Q2H IV 09/15/25 11:15 09/15/25 15:14 09/15/25 11:34 500 MLS/HR Assessment/Plan Assessment/Plan Diabetic ketoacidosis Uncontrolled diabetes mellitus type 2 HGB A1c 11.5% on 09/15/2025 Abdominal pain likely related to diabetic ketoacidosis and erosive esophagitis Severe erosive grade C esophagitis with eschar necrosis Intractable nausea and vomiting due to diabetic ketoacidosis Anion gap metabolic acidosis Severe dehydration -IV fluids with NS 150 mL/hour, transition to D5 half NS given blood sugar dropped below 200 mg/dL -continue IV insulin protocol -patient was given 50 units of Lantus by ED physician one time, -transitioned to Lantus once was anion gap close -continue to monitor electrolytes, target potassium greater than 3.3 mg/dL -strict I&O -NPO -one amp of sodium bicarb given for metabolic acidosis -VB.188, pCO2 19.9. -repeat blood gas. -lactic acid:2 Ruled out small-bowel obstruction Small hiatal hernia Enteritis -IV antibiotic with Zosyn -IV fluid Acute urinary retention Enlarged prostate -Darling insertion -PSA PUD prophylaxis with Protonix DVT prophylaxis with Lovenox Goals of care discussed, greater than 23 minutes minutes, full code status. Plan discussed with Dr. Yo Plan discussed with: Patient, Other My Orders Orders - ELLIS HERNANDEZ RESIDENT Procedure Category Date Status Time Admit ADMIT 09/15/25 Transmitted 13:02 Code Status CODE 09/15/25 Transmitted 13:02 Vital Signs [facility] 09/15/25 In Process 13:02 Review Orders With [facility] 09/15/25 In Process Adm. 13:02 Npo (Nothing By DIET 09/15/25 Transmitted Mouth) Diet Lunch Metoclopramide PHA 09/15/25 Logged Injection (Reglan 13:15 Notify Md Of Changes [facility] 09/15/25 In Process From Base 13:02 Advance Directive [facility] 09/15/25 In Process 13:02 Kub Abdomen Single XY 09/15/25 Logged View 13:02 Lipid Panel LAB 09/15/25 Logged 13:02 Blood Culture WALDO 09/15/25 Logged 13:02 Patient Condition ORDERS 09/15/25 Transmitted 13:02 Allergies [facility] 09/15/25 In Process 13:02 Ondansetron Hcl PHA 09/15/25 Logged (Zofran) 13:15 Drug Screen LAB 09/15/25 Logged 13:02 Hemoglobin A1c LAB 09/15/25 Logged 13:02 Enoxaparin Sodium PHA 09/16/25 Logged (Lovenox) 10:00 Nitroglycerin PHA 09/15/25 Logged Sublingual (Ntrostat 13:15 Morphine Sulfate PHA 09/15/25 Logged Injection 13:15 Oxygen By Nasal RT 09/15/25 Transmitted Cannula 13:02 Stat Ekg For Chest [facility] 09/15/25 In Process Pain 13:02 Notify Of Changes [facility] 09/15/25 In Process From Base 13:02 Fashion Consultant Sales For [facility] 09/15/25 In Process 24 Hours 13:02 Emergency Dysrhythmia [facility] 09/15/25 In Process Protocol 13:02 Rhythm Strips Once [facility] 09/15/25 In Process Every Shift 13:02 Basic Metabolic Panel LAB 09/15/25 Logged 15:00 Sodium Bicarb PHA 09/15/25 Logged 50meq/50ml Vial 13:15 Chest Xray 1 View XY 09/15/25 Logged 13:02 Lipase LAB 09/15/25 Logged 13:02 Lactic Acid W/ Reflex LAB 09/15/25 Logged Order 13:02 Thyroid Stimulating LAB 09/15/25 Logged Hormone 13:02 Vitamin B12 LAB 09/15/25 Logged 13:02 Folate (Folic Acid) LAB 09/15/25 Logged 13:02 Pantoprazole PHA 09/15/25 Logged (Protonix) 13:15 Pantoprazole PHA 09/15/25 Logged (Protonix) 22:00 * Gi Dvh Fruit Sprayer CONS 09/15/25 Transmitted 13:02 Piperacillin-Tazob PHA 09/15/25 Logged 3.375gm (Zosyn 3.375g 13:15 Date of Service: Sep 15, 2025 Billing Provider: BRADLEY YO MD Common Visit Codes: [id number] INP/OBS CARE (HIGH) Secondary Visit Codes: [id number] CARE PLAN 30 MINUTES ELLIS HERNANDEZ RESIDENT Sep 15, 2025 13:11
[2025-09-15] MEDS: PANTOPRAZOLE 40 MG/10 ML VIAL INJ IV ONE (13:15)
[2025-09-15] MEDS: PIPERACILLIN-TAZOB 3.375GM 100 ML IV ONE (13:15)
[2025-09-15] MEDS: SODIUM BICARB 8.4% 50Meq/50ml SYR Vial IV ONE (13:15)
[2025-09-15] MEDS ORDERED: NITROGLYCERIN 0.4 MG SL TAB SL PRN (13:15)
[2025-09-15] MEDS ORDERED: MORPHINE SULFATE INJ 2 MG/ml SYRG IV PRN (13:15)
[2025-09-15 13:24] VITALS: PULSE 95; RESP 11; O2SAT 96
[2025-09-15 13:43] LABS: Cholesterol 319 mg/dL (< 200); HDL Cholesterol 40 mg/dL (40-59); Triglycerides 872 mg/dL (< 150)
--- NOTE | 2025-09-15 13:47 | DVH ---
XY CHEST XRAY 1 VIEW, HISTORY: n V COMPARISON: XY CHEST PORTABLE on DOS: 01/21/25 XY CHEST PORTABLE on DOS: 01/21/25 TECHNICAL DATA: 1 view of the chest was obtained. FINDINGS: Lines and tubes: None Cardiomediastinal silhouette: normal Pulmonary vasculature: normal Lung expansion: normal Lung airspace: normal Lung interstitium: normal Pleura: normal Pneumothorax: no Bones: Unremarkable Other: no IMPRESSION: No acute intrathoracic abnormality.
--- NOTE | 2025-09-15 13:48 | DVH ---
Date: 09/15/2025 01:06 PM Examination: XY KUB ABDOMEN SINGLE VIEW History: nasuea and vomiting Comparison: None TECHNIQUE: Frontal views of the abdomen was obtained. FINDINGS: Bowel gas pattern is unremarkable. The lung bases are unremarkable. No acute osseous abnormality identified. IMPRESSION: 1. Possible fluid-filled bowel consider CT abdomen pelvis.
[2025-09-15] MEDS: HYDROmorphone HCL 2 MG/ML VL/or syr IV PRN (14:29)
[2025-09-15 15:36] LABS: Potassium 4.4 mmol/L (3.5-5.1); Sodium 141 mmol/L (136-145)
[2025-09-15 15:37] LABS: Anion Gap 20.00001 (5-15)
[2025-09-15 15:43] LABS: BUN/Creatinine Ratio 15.0 (10.0-20.0); Blood Urea Nitrogen 15 mg/dL (9-23)
[2025-09-15 15:59] LABS: Calcium 8.7 mg/dL (8.7-10.4); Chloride 111 mmol/L (98-107); Glucose 252 mg/dL (74-106)
[2025-09-15 16:00] LABS: Carbon Dioxide < 10 mmol/L (20-31)
--- NOTE | 2025-09-15 17:16 | DVH ---
Exam: CT CT AB PEL WO CON-NO ORAL OR IV History: SBO Comparison Study: CT CT AB PEL WO CON-NO ORAL OR IV on DOS: 07/29/24 TECHNIQUE: Multidetector CT of the abdomen AND PELVIS without IV contrast. Axial, coronal and sagitta l multiplanar reformats were obtained from the axial data set by the technologist. Radiation Dose Information: CT Dose: CTDI volume is 5.07 mGy. Dose-length product is 274.92 mGy*cm FINDINGS: Bibasilar atelectasis. Partially visualized heart is unremarkable. Hepatic steatosis. Otherwise, liver, spleen, gallbladder, pancreas and adrenal glands are unremarkab le. Mild right-sided pelviectasis with no obstructing calculus noted. Kidneys, and ureters unremarkable. Significant distention of the urinary bladder up to the level of the lower vertebral body of L4. Pros reyes measures 3.9 x 4.8 by 3.5 cm. Small hiatal hernia. Mild wall thickening of the herniated stomach. The remainder of the stomach is u nremarkable. Mild wall Thickening of proximal Small bowel loops. The remainder of the small bowel loo ps unremarkable. Hypodense Material within the distal part of the nondistended appendix which may rep resent ingested material/appendicolith. The large bowel is unremarkable. No evidence of intraperitoneal free air. Minimal mesenteric edema. No evidence of aortic aneurysm. No significant lymphadenopathy. Minimal body wall edema. No evidence of acute osseous abnormalities. IMPRESSION: Limited noncontrast imaging. No evidence of small-bowel obstruction. Small hiatal hernia. Wall thickening of the herniated stomach which may be due to inadequate distent ion with gastritis /neoplasm not excluded. Mild wall Thickening of proximal small bowel loops. Correlate for enteritis. Mild right-sided pelviectasis with no obstructing calculus noted. Significant distention of the urinary bladder up to the level of the lower vertebral body of L4. The patient can not void, consider mcmahon catheter placement. Prostate is mildly enlarged. Recommend correlation with PSA.
[2025-09-15] MEDS: D5W/SOD CHL 0.45% 1,000 ML IV SCH (19:02)
[2025-09-15 21:18] LABS: Amphetamine Screen, Urine Neg (NEGATIVE); Barbiturate Scree,Urine Neg (NEGATIVE); Benzodiazephine Screen, Urine Neg (NEGATIVE); Cannabinoid Screen, Urine Neg (NEGATIVE); Cocaine Screen, Urine Neg (NEGATIVE); Opiate Scree,Urine Neg (NEGATIVE); Phencyclidine Screen, Urine Neg (NEGATIVE)
[2025-09-15] MEDS: PANTOPRAZOLE 40 MG/10 ML VIAL INJ IV SCH (22:13)
[2025-09-15] MEDS: PIPERACILLIN-TAZOB 3.375GM 100 ML IV SCH (22:13)
[2025-09-15] MEDS: METOCLOPRAMIDE HCL 5MG/ml INJ 2ml VIAL IV PRN (22:27)
[2025-09-15 23:29] LABS: Potassium 4.3 mmol/L (3.5-5.1); Sodium 140 mmol/L (136-145)
[2025-09-15 23:30] LABS: Anion Gap 15 (5-15)
[2025-09-15 23:31] LABS: Calcium 9.0 mg/dL (8.7-10.4)
[2025-09-15 23:34] LABS: Carbon Dioxide 16 mmol/L (20-31); Chloride 109 mmol/L (98-107)
[2025-09-15 23:36] LABS: BUN/Creatinine Ratio 10.8 (10.0-20.0); Blood Urea Nitrogen 13 mg/dL (9-23)
[2025-09-15 23:39] LABS: Glucose 200 mg/dL (74-106)
[2025-09-16] MEDS: ONDANSETRON HCL 4 MG/2 ML VIAL IV PRN (01:35)
[2025-09-16] MEDS ORDERED: DEXTROSE (50%) 50ML SYRG IV PRN (03:15)
[2025-09-16] MEDS: InsuLIN REG 1unit/0.01ml Soln (100units/ml) SC SCH (04:27)
[2025-09-16] MEDS: ACCU-CHEK COMFORT CURVE STRIP VI SCH (04:33)
[2025-09-16] MEDS: SUCRALFATE 1 GM TAB PO SCH (06:08)
[2025-09-16 07:34] LABS: Hematocrit 46.0 % (41.0-53.0); Hemoglobin 15.6 g/dL (13.5-17.5); Mean Corpuscular Hemoglobin 29.8 pg (28.0-32.0); Mean Corpuscular Volume 87.8 fL (80.0-100.0); Nucleated Red Blood Cells % 0.0 %
[2025-09-16 07:38] LABS: Potassium 3.6 mmol/L (3.5-5.1); Sodium 143 mmol/L (136-145)
[2025-09-16 07:39] LABS: Anion Gap 17 (5-15)
[2025-09-16 07:40] LABS: Calcium 8.8 mg/dL (8.7-10.4); Carbon Dioxide 16 mmol/L (20-31); Chloride 110 mmol/L (98-107)
[2025-09-16 07:45] LABS: BUN/Creatinine Ratio 14.2 (10.0-20.0); Blood Urea Nitrogen 15 mg/dL (9-23); Glucose 139 mg/dL (74-106); Magnesium 2.0 mg/dL (1.6-2.6)
[2025-09-16] MEDS: PANTOPRAZOLE 40 MG TAB PO SCH (09:53)
[2025-09-16] MEDS: THIAMINE HCL 100 MG TAB PO SCH (09:53)
[2025-09-16] MEDS: ENOXAPARIN SOD 40 MG/0.4 ML SYRINGE SC SCH (09:54)
[2025-09-16] MEDS: INSULIN LANTUS (GLARGINE) 1 /0.01ml (100units/ml) SC SCH ×2 (09:54→23:01)
[2025-09-16 12:48] LABS: Free T3 2.15 pg/mL (2.3-4.2); Free T4 (Free Thyroxine) 1.19 ng/dL (0.89-1.76)
--- NOTE | 2025-09-16 14:59 | DVHPN2 ---
Subjective 45 Year old insulin-dependent yesterday showed Still has nausea and vomiting Eyes: No Pain, No Vision change, No Conjunctivae inflammation, No Eyelid inflammation, No Other, No Redness ENT: No Ear pain, No Ear discharge, No Nose pain, No Nose discharge, No Nose congestion, No Mouth pain, No Mouth swelling, No Throat pain, No Throat swelling, No Other Cardiovascular: No Chest Pain, No Palpitations, No Orthopnea, No Paroxysmal Noc. Dyspnea, No Edema, No Lt Headedness, No Other Respiratory: No Cough, No Dry, No Shortness of breath, No SOB with excertion, No Wheezing, No Hemoptysis, No Pleuritic Pain, No Sputum, No Other Gastrointestinal: Nausea, Vomiting, Abdominal Pain Genitourinary: No Dysuria, No Frequency, No Incontinence, No Hematuria, No Retention, No Other Musculoskeletal: No other, No neck pain, No shoulder pain, No arm pain, No back pain, No hand pain, No leg pain, No foot pain Skin: No Rash, No Lesions, No Jaundice, No Bruising, No Other Objective Vitals Vital Signs Date Time Temp Pulse Resp B/P (MAP) Pulse Ox O2 Delivery O2 Flow Rate FiO2 09/16/25 13:09 95 09/16/25 10:00 11 151/84 (106) 97 09/16/25 08:00 98.7 98.7 09/16/25 07:30 Room Air* 0 21 Intake/Output Intake and Output 09/16/25 06:59 Intake Total 1450 ml Balance 1450 ml Intake IV Total 1450 ml General Appearance: Alert, Oriented X3, Cooperative, No acute distress Lungs: Clear to auscultation Cardiovascular: Regular rate, Normal S1 Abdomen: Normal bowel sounds, Soft, No tenderness Extremities: No edema Medications Current Medications Medications Dose Ordered Sig/Anitha Route Start Time Stop Time Status Last Admin Dose Admin Insulin Human (Reg)/Sodium Chloride 100 ml @ 0.5 mls/hr Q24H IV 09/15/25 11:15 09/16/25 02:59 2 MLS/HR Insulin Glargine 15 units DAILY SC 09/16/25 10:00 09/16/25 09:54 15 UNITS Metoclopramide HCl 10 mg Q4HP PRN IV 09/15/25 13:15 09/16/25 02:59 10 MG Ondansetron HCl 4 mg Q4HP PRN IV 09/15/25 13:15 09/16/25 01:35 4 MG Enoxaparin Sodium 40 mg DAILY SC 09/16/25 10:00 09/16/25 09:54 40 MG Nitroglycerin 0.4 mg Q5MINP PRN SL 09/15/25 13:15 Morphine Sulfate 2 mg Q30M PRN IV 09/15/25 13:15 Hydromorphone HCl 0.25 mg Q4HPRN PRN IV 09/15/25 13:45 09/15/25 14:29 0.25 MG Piperacillin Sod/ Tazobactam Sod 100 ml @ 25 mls/hr Q8HR IV 09/15/25 22:00 09/16/25 14:22 25 MLS/HR Diagnostic Test (Pha) 1 strip IQ4HR 09/16/25 04:00 09/16/25 11:44 1 STRIP Insulin Human Regular IQ4HR SC 09/16/25 04:00 09/16/25 11:56 6 UNITS Dextrose 50 ml UD PRN IV 09/16/25 03:15 Pantoprazole Sodium 40 mg BID PO 09/16/25 10:00 09/16/25 09:53 40 MG Sucralfate 1 gm QID PO 09/16/25 06:00 09/16/25 11:55 1 GM Thiamine HCl 100 mg DAILY PO 09/16/25 10:00 09/16/25 09:53 100 MG Laboratory Results Laboratory Tests 09/16/25 06:36 Chemistry Test 09/15/25 15:17 09/15/25 23:05 09/16/25 06:36 Calcium Level 8.7 mg/dL (8.7-10.4) 9.0 mg/dL (8.7-10.4) 8.8 mg/dL (8.7-10.4) Magnesium Level 2.0 mg/dL (1.6-2.6) Urinalysis Test 09/15/25 11:26 Urine Color Light-yellow (Yellow) Urine Clarity Clear (Clear) Urine pH 5.5 (5.0-9.0) Urine Specific [place] 1.026 (1.001-1.035) Urine Protein Trace (Negative) H Urine Ketones 4+ (Negative) H Urine Blood Negative /uL (Negative) Urine Nitrite Negative (Negative) Urine Bilirubin Negative (Negative) Urine Urobilinogen Normal mg/dL (Negative) Urine Leukocyte Esterase Negative /uL (Negative) Urine RBC 1 /hpf (0 - 3) Urine Microscopic WBC < 1 /HPF (0-3) Urine Squamous Epithelial Cells None seen /hpf (<5) Urine Bacteria None seen /hpf (None Seen) Urine Glucose 4+ mg/dL (Normal) H Blood Gas Results Test 09/15/25 19:38 FiO2 % 21.0 Microbiology Microbiology Date/Time Source Procedure Growth Status 09/15/25 13:47 Blood Blood Culture - Preliminary NO GROWTH AFTER 24 HOURS OF INCUBATION. Resulted Assessment/Plan Assessment/Plan Acute DKA Type 2 Diabetes, uncontrolled DEE due to VMN h/o erosive esophagitis No UTI No sepsis PLAN: Clear liquids IV fluids D5W Sliding scale insulin Continue Protonix and Carafate Monitor closely Plan discussed with: Patient My Orders Orders - ZULEYKA MELARA MD Procedure Category Date Status Time Clear Liq Diet DIET 09/16/25 Transmitted Dinner Date of Service: Sep 16, 2025 Billing Provider: ZULEYKA MELARA MD Common Visit Codes: [id number] INP/OBS CARE(HIGH) ZULEYKA MELARA MD Sep 16, 2025 14:59
[2025-09-16] MEDS: D5W 5% 1,000 ML IV SCH (15:15)
[2025-09-16 18:09] VITALS: BP 134/77; PULSE 78; TEMP 98.3; O2SAT 99
--- NOTE | 2025-09-16 21:00 | DVHINCON2 ---
Date of service: Sep 16, [address] HERNANDEZ Reason for Consultation Patient with intractable nausea and vomiting. History of Present Illness This 45-year-old male with a history of diabetes is admitted with complaints of severe nausea vomiting which was intractable with generalized body pains and abdominal discomfort denies hematemesis or melena but had severe constant vomiting History of moderate alcoholism with drinking Quite a few beers recently found to ketoacidosis and the GI consult is for GI problems. Of nausea vomiting and throat and chest discomfort. Past Medical History Diabetes possible esophagitis in the past Past Surgical History None Family History: Cardiovascular disease G8 FATHER, Family History Noncontributory Social History Drinking moderately Allergies: Coded Allergies: No Known Drug Allergy (Unverified Allergy, Unknown, 08/05/23) Home Meds Active Scripts Sucralfate (CARAFATE) 1 Gm Tab, 1 GM PO QID for 30 Days, #120 TAB Prov:BRADLEY TOMAS MD 01/22/25 Folic Acid (Folic Acid) 1 Mg Tab, 1 MG PO DAILY, #30 TAB Prov:JOHNNA NAVARRO MD 08/02/24 Thiamine HCl (Thiamine Hydrochloride) 100 Mg Tab, 100 MG PO DAILY, #30 TAB Prov:JOHNNA NAVARRO MD 08/02/24 Reported Medications Omeprazole (Omeprazole Dr) 40 Mg Cap, 1 CAP PO DAILY for 30 Days, #30 09/16/25 Insulin Glargine (Lantus Solostar) 100 Unit/Ml Inj, 30 UNIT SC BID for 50 Days, #30 09/16/25 Current Medications Current Medications Medications (Trade) Dose Ordered Sig/Anitha Route PRN Reason Start Time Stop Time Status Last Admin Insulin Glargine (Lantus) 15 units DAILY SC 09/16/25 10:00 09/16/25 14:51 DC 09/16/25 09:54 Enoxaparin Sodium (Lovenox) 40 mg DAILY SC 09/16/25 10:00 09/16/25 09:54 Pantoprazole Sodium (Protonix) 40 mg BID IV 09/15/25 22:00 09/16/25 08:13 DC 09/15/25 22:13 Piperacillin Sod/ Tazobactam Sod 100 ml @ 25 mls/hr Q8HR IV 09/15/25 22:00 09/16/25 14:57 DC 09/16/25 14:22 Diagnostic Test (Pha) (Accu-Chek Comfort Curve T) 1 strip IQ4HR 09/16/25 04:00 09/16/25 20:00 Insulin Human Regular (InsuLIN R) IQ4HR SC 09/16/25 04:00 09/16/25 16:11 Dextrose 50 ml UD PRN IV Blood Sugar LESS THAN 60 09/16/25 03:15 Pantoprazole Sodium (Protonix Tablet) 40 mg BID PO 09/16/25 10:00 09/16/25 09:53 Sucralfate (Carafate Tab) 1 gm QID PO 09/16/25 06:00 09/16/25 11:55 Thiamine HCl 100 mg DAILY PO 09/16/25 10:00 09/16/25 09:53 Insulin Glargine (Lantus) 15 units Q12H SC 09/16/25 22:00 Dextrose 1,000 ml @ 50 mls/hr Q20H IV 09/16/25 15:00 09/16/25 15:15 Review of Systems Not contributory Vital Signs Vital Signs Date Time Temp Pulse Resp B/P (MAP) Pulse Ox O2 Delivery O2 Flow Rate FiO2 09/16/25 20:13 97.9 82 16 128/77 (94) 100 97.9 09/16/25 07:30 Room Air* 0 21 Physical Exam Moderately built and nourished male slightly on the wasted side HEENT examination no pallor no icterus Lungs are clear Vascular unremarkable Abdomen soft no tenderness no rigidity no guarding Extremities no edema no varicosities Neurological no focal deficits Count was 20.7 hemoglobin was 17 Labs/Diagnostic Data Labs Test 09/16/25 16:08 09/16/25 14:34 09/16/25 06:36 09/15/25 19:38 Range/Units POC Glucose 182 H 70-106 mg/dl White Blood Count 16.9 H 4.4-10.8 10^3/uL Red Blood Count 5.24 4.5-5.90 10^6/uL Hemoglobin 15.6 13.5-17.5 g/dL Hematocrit 46.0 # 41.0-53.0 % Mean Corpuscular Volume 87.8 # 80.0-100.0 fL Mean Corpuscular Hemoglobin 29.8 28.0-32.0 pg Mean Corpuscular Hemoglobin Concent 33.9 32.0-36.0 g/dL Red Cell Distribution Width 13.1 11.8-14.3 % Platelet Count 262 140-450 10^3/uL Mean Platelet Volume 7.7 6.9-10.8 fL Neutrophils (%) (Auto) 77.2 37.0-80.0 % Lymphocytes (%) (Auto) 12.8 10.0-50.0 % Monocytes (%) (Auto) 9.7 0.0-12.0 % Eosinophils (%) (Auto) 0.1 0.0-7.0 % Basophils (%) (Auto) 0.2 0.0-2.0 % Neutrophils # (Auto) 13.1 H 1.6-8.6 10 ^3/uL Lymphocytes # (Auto) 2.2 0.4-5.4 10 ^3/uL Monocytes # (Auto) 1.6 H 0-1.3 10 ^3/uL Eosinophils # (Auto) 0 0-0.8 10 ^3/uL Basophils # (Auto) 0 0-0.2 10 ^3/uL Nucleated Red Blood Cells 0.0 % Sodium Level 143 136-145 mmol/L Potassium Level 3.6 3.5-5.1 mmol/L Chloride Level 110 H 98-107 mmol/L Carbon Dioxide Level 16 L 20-31 mmol/L Anion Gap 17 H 5-15 Blood Urea Nitrogen 15 9-23 mg/dL Creatinine 1.06 0.700-1.30 mg/dL Glomerular Filtration Rate Calc 89 >90 mL/min BUN/Creatinine Ratio 14.2 10.0-20.0 Serum Glucose 139 H 74-106 mg/dL Calcium Level 8.8 8.7-10.4 mg/dL Magnesium Level 2.0 1.6-2.6 mg/dL Blood Gas Specimen Type Venous Blood Gas Sample Site Vbg - n/a Blood Gas Patient Temperature 37.0 Arterial Blood Date Drawn [id number] Walker Test N/a Venous Blood pH 7.129 *L 7.320-7.430 Venous Blood pCO2 at Patient Temp 38.9 38.0-54.0 mmHg Venous Blood pO2 at Patient Temp < 36.5 23.0-48.0 mmHg Venous Blood HCO3 12.6 L 22.0-29.0 mmol/L Venous Blood Base Excess -15.9 L -2.0-3.0 mmol/L Blood Gas Modality Room air FiO2 % 21.0 Blood Gas Critical Value Read Back Yes Blood Gas Notified Whom Oni rosenthal np Blood Gas Notified Time [id number] Blood Gas Notified By Ryan gerber scraper operator Test 09/15/25 13:49 09/15/25 13:19 09/15/25 13:02 09/15/25 11:35 Range/Units Lipase 22 12-53 U/L Vitamin B12 Level 1227 H 211-911 pg/mL Folic Acid > 24.00 >5.38 ng/mL Thyroid Stimulating Hormone (TSH) 0.43 L 0.55-4.78 uIU/mL Free Thyroxine (T4) Calculated 1.19 0.89-1.76 ng/dL Free Triiodothyronine (T3) pg/mL 2.15 L 2.3-4.2 pg/mL Lactic Acid Level 2.0 0.4-2.0 mmol/L Urine Opiates Screen Neg NEGATIVE Urine Fentanyl Screen Neg NEGATIVE Urine Barbiturates Screen Neg NEGATIVE Urine Phencyclidine Screen Neg NEGATIVE Urine Amphetamines Screen Neg NEGATIVE Urine Benzodiazepines Screen Neg NEGATIVE Urine Cocaine Screen Neg NEGATIVE Urine Cannabinoids Screen Neg NEGATIVE Hemoglobin A1c 11.5 H <5.7 % A1C Serum Osmolality 333 H 278-298 mOsm/kg Phosphorus Level 4.0 2.4-5.1 mg/dL Triglycerides Level 872 H < 150 mg/dL Cholesterol Level 319 H < 200 mg/dL LDL Cholesterol < 100 mg/dL HDL Cholesterol 40 40-59 mg/dL Beta-Hydroxybutyric Acid > 4.500 H < 0.4 mmol/L Test 09/15/25 11:26 09/15/25 11:11 Range/Units Urine Color Light-yellow Yellow Urine Clarity Clear Clear Urine pH 5.5 5.0-9.0 Urine Specific [place] 1.026 1.001-1.035 Urine Protein Trace H Negative Urine Ketones 4+ H Negative Urine Blood Negative Negative /uL Urine Nitrite Negative Negative Urine Bilirubin Negative Negative Urine Urobilinogen Normal Negative mg/dL Urine Leukocyte Esterase Negative Negative /uL Urine RBC 1 0 - 3 /hpf Urine Microscopic WBC < 1 0-3 /HPF Urine Squamous Epithelial Cells None seen <5 /hpf Urine Bacteria None seen None Seen /hpf Urine Glucose 4+ H Normal mg/dL Arterial Blood pH 7.188 *L 7.350-7.450 Arterial Blood Partial Pressure CO2 19.9 *L 35.0-48.0 mmHg Arterial Blood Partial Pressure O2 115.4 H 83.0-108.0 mmHg Arterial Blood HCO3 7.4 L 21.0-28.0 mmol/L Arterial Blood Oxygen Saturation 97.5 94.0-98.0 % Arterial Blood Base Excess -18.4 L -2.0-3.0 mmol/L Arterial Blood Oxyhemoglobin 96.0 94.0-98.0 % Arterial Blood Carboxyhemoglobin 0.9 0.5-1.5 % Arterial Blood Methemoglobin 0.6 0.0-1.5 % Blood Gas Total Hemoglobin 17.00 13.5-17.5 g/dL Microbiology Date/Time Source Procedure Growth Status 09/15/25 13:47 Blood Blood Culture - Preliminary NO GROWTH AFTER 24 HOURS OF INCUBATION. Resulted Assessment 45-year-old male with a history of diabetes history of alcoholism on and off admitted with the complaints of intractable nausea vomiting and uncontrolled blood sugars patient abdomen is soft nontender no rigidity no guarding bowel sounds are normal colitis in the past Clinical impression Possible esophagitis possibility of a candidiasis of the or other pathology also can not be excluded especially if symptoms of nausea vomiting and dysphagia persist Plan/Recommendation We will recommend to follow closely with PPIs and symptomatic Symptoms persist we will recommend an EGD evaluation Monitor the blood sugars closely and keep it under control Thank you Dr. Lokesh Esparza discussed with: Patient EMMIE PLASENCIA MD Sep 16, 2025 21:00
[2025-09-17] VITALS (8 sets, daily range): BP systolic 118–145; BP diastolic 68–93; PULSE 66–80; RESP 17–20; TEMP 97.4–99.1; O2SAT 96–99
[2025-09-17 06:45] LABS: Hematocrit 43.0 % (41.0-53.0); Hemoglobin 14.8 g/dL (13.5-17.5); Mean Corpuscular Hemoglobin 29.6 pg (28.0-32.0); Mean Corpuscular Volume 86.2 fL (80.0-100.0); Nucleated Red Blood Cells % 0.1 %
[2025-09-17 07:00] LABS: Alkaline Phosphatase 83 U/L (46-116); Anion Gap 13 (5-15); BUN/Creatinine Ratio 18.3 (10.0-20.0); Blood Urea Nitrogen 15 mg/dL (9-23); Calcium 9.0 mg/dL (8.7-10.4); Carbon Dioxide 23 mmol/L (20-31); Chloride 104 mmol/L (98-107); Glucose 88 mg/dL (74-106); Magnesium 1.9 mg/dL (1.6-2.6); Sodium 140 mmol/L (136-145); Total Protein 7.3 g/dL (5.7-8.2)
[2025-09-17 07:01] LABS: Albumin 4.0 g/dL (3.2-4.8)
[2025-09-17 07:02] LABS: Bilirubin, Total 0.9 mg/dL (0.2-1.0)
[2025-09-17 07:16] LABS: Alanine Aminotransferase 47 U/L (7-40); Potassium 3.0 mmol/L (3.5-5.1)
--- NOTE | 2025-09-17 09:26 | DVHPN2 ---
Subjective Better Less nausea and less vomiting Changes from previous H/P or p: Changes Eyes: No Pain, No Vision change, No Conjunctivae inflammation, No Eyelid inflammation, No Other, No Redness ENT: No Ear pain, No Ear discharge, No Nose pain, No Nose discharge, No Nose congestion, No Mouth pain, No Mouth swelling, No Throat pain, No Throat swelling, No Other Cardiovascular: No Chest Pain, No Palpitations, No Orthopnea, No Paroxysmal Noc. Dyspnea, No Edema, No Lt Headedness, No Other Respiratory: No Cough, No Dry, No Shortness of breath, No SOB with excertion, No Wheezing, No Hemoptysis, No Pleuritic Pain, No Sputum, No Other Gastrointestinal: Nausea, Vomiting, Abdominal Pain Genitourinary: No Dysuria, No Frequency, No Incontinence, No Hematuria, No Retention, No Other Musculoskeletal: No other, No neck pain, No shoulder pain, No arm pain, No back pain, No hand pain, No leg pain, No foot pain Skin: No Rash, No Lesions, No Jaundice, No Bruising, No Other Objective Vitals Vital Signs Date Time Temp Pulse Resp B/P (MAP) Pulse Ox O2 Delivery O2 Flow Rate FiO2 09/17/25 08:37 97.8 71 20 145/80 (101) 96 97.8 09/16/25 22:05 Room Air* 0 21 Intake/Output Intake and Output 09/17/25 07:00 Intake Total 250 ml Balance 250 ml Intake Oral 250 ml # Voids 2 General Appearance: Alert, Oriented X3, Cooperative, No acute distress Lungs: Clear to auscultation Cardiovascular: Regular rate, Normal S1 Abdomen: Normal bowel sounds, Soft, No tenderness Extremities: No edema Medications Current Medications Medications Dose Ordered Sig/Anitha Route Start Time Stop Time Status Last Admin Dose Admin Metoclopramide HCl 10 mg Q4HP PRN IV 09/15/25 13:15 09/16/25 02:59 10 MG Ondansetron HCl 4 mg Q4HP PRN IV 09/15/25 13:15 09/16/25 15:20 4 MG Enoxaparin Sodium 40 mg DAILY SC 09/16/25 10:00 09/16/25 09:54 40 MG Nitroglycerin 0.4 mg Q5MINP PRN SL 09/15/25 13:15 Morphine Sulfate 2 mg Q30M PRN IV 09/15/25 13:15 Hydromorphone HCl 0.25 mg Q4HPRN PRN IV 09/15/25 13:45 09/15/25 14:29 0.25 MG Diagnostic Test (Pha) 1 strip IQ4HR 09/16/25 04:00 09/17/25 08:12 1 STRIP Insulin Human Regular IQ4HR SC 09/16/25 04:00 09/17/25 08:11 2 UNITS Dextrose 50 ml UD PRN IV 09/16/25 03:15 Pantoprazole Sodium 40 mg BID PO 09/16/25 10:00 09/16/25 22:15 40 MG Sucralfate 1 gm QID PO 09/16/25 06:00 09/17/25 05:10 1 GM Thiamine HCl 100 mg DAILY PO 09/16/25 10:00 09/16/25 09:53 100 MG Insulin Glargine 15 units Q12H SC 09/16/25 22:00 09/16/25 23:01 15 UNITS Dextrose 1,000 ml @ 50 mls/hr Q20H IV 09/16/25 15:00 09/16/25 15:15 50 MLS/HR Laboratory Results Laboratory Tests 09/17/25 05:30 Chemistry Test 09/17/25 05:30 Albumin 4.0 g/dL (3.2-4.8) Calcium Level 9.0 mg/dL (8.7-10.4) Magnesium Level 1.9 mg/dL (1.6-2.6) Total Protein 7.3 g/dL (5.7-8.2) LFT Test 09/17/25 05:30 Alanine Aminotransferase (ALT) 47 U/L (7-40) H Alkaline Phosphatase 83 U/L (46-116) Aspartate Amino Transferase (AST) 37 U/L (13-40) Total Bilirubin 0.9 mg/dL (0.2-1.0) Urinalysis Test 09/15/25 11:26 Urine Color Light-yellow (Yellow) Urine Clarity Clear (Clear) Urine pH 5.5 (5.0-9.0) Urine Specific [place] 1.026 (1.001-1.035) Urine Protein Trace (Negative) H Urine Ketones 4+ (Negative) H Urine Blood Negative /uL (Negative) Urine Nitrite Negative (Negative) Urine Bilirubin Negative (Negative) Urine Urobilinogen Normal mg/dL (Negative) Urine Leukocyte Esterase Negative /uL (Negative) Urine RBC 1 /hpf (0 - 3) Urine Microscopic WBC < 1 /HPF (0-3) Urine Squamous Epithelial Cells None seen /hpf (<5) Urine Bacteria None seen /hpf (None Seen) Urine Glucose 4+ mg/dL (Normal) H Microbiology Microbiology Date/Time Source Procedure Growth Status 09/15/25 13:47 Blood Blood Culture - Preliminary NO GROWTH AFTER 24 HOURS OF INCUBATION. Resulted Assessment/Plan Assessment/Plan Acute DKA Type 2 Diabetes, uncontrolled DEE due to VMN h/o erosive esophagitis No UTI No sepsis Hypokalemia PLAN: Clear liquids IV fluids D5W Sliding scale insulin Continue Protonix and Carafate Monitor closely 09/17/2025: Advance diet Continue IV fluids and sliding scale Hypokalemia: Replace potassium Plan discussed with: Patient My Orders Orders - ZULEYKA MELARA MD Procedure Category Date Status Time Insulin Lantus PHA 09/16/25 In Process (Glargine) (Lantus) 22:00 D5w 5% (Dextrose 5%) PHA 09/16/25 In Process 15:00 Full Liq Diet DIET 09/17/25 Transmitted Breakfast Date of Service: Sep 17, 2025 Billing Provider: ZULEYKA MELARA MD Common Visit Codes: [id number] INP/OBS CARE(HIGH) ZULEYKA MELARA MD Sep 17, 2025 09:26
[2025-09-17 10:07] LABS: Prostate Specific Antigen 0.6 ng/mL (0.0-4.0)
[2025-09-17] MEDS: POTASSIUM CHL 20 Meq TABLET PO ONE (10:40)
--- NOTE | 2025-09-17 17:14 | DVHPN2 ---
Progress Note - Dictate Date Seen: Sep 17, 2025 Medical Necessity Reason Pt with a Central, PICC or Fol: No Subjective No new complaints Patient is resting comfortably I have reviewed his last endoscopy done on July 2024 Patient had a hiatal hernia with erosive esophagitis with overlying eschar and ulceration vital signs Vital Sign Date Time Temp Pulse Resp B/P (MAP) Pulse Ox O2 Delivery O2 Flow Rate FiO2 09/17/25 17:00 97.8 80 20 138/93 (108) 99 97.8 09/17/25 08:00 Room Air* 0 21 Total Intake and Output 09/16/25 09/16/25 09/17/25 15:00 23:00 07:00 Intake Total 250 ml Balance 250 ml medications Current Medications Medications Dose Ordered Sig/Anitha Route Start Time Stop Time Status Last Admin Dose Admin Metoclopramide HCl 10 mg Q4HP PRN IV 09/15/25 13:15 09/17/25 10:36 10 MG Ondansetron HCl 4 mg Q4HP PRN IV 09/15/25 13:15 09/16/25 15:20 4 MG Enoxaparin Sodium 40 mg DAILY SC 09/16/25 10:00 09/17/25 10:39 40 MG Nitroglycerin 0.4 mg Q5MINP PRN SL 09/15/25 13:15 Morphine Sulfate 2 mg Q30M PRN IV 09/15/25 13:15 Hydromorphone HCl 0.25 mg Q4HPRN PRN IV 09/15/25 13:45 09/15/25 14:29 0.25 MG Diagnostic Test (Pha) 1 strip IQ4HR 09/16/25 04:00 09/17/25 12:20 1 STRIP Insulin Human Regular IQ4HR SC 09/16/25 04:00 09/17/25 12:20 6 UNITS Dextrose 50 ml UD PRN IV 09/16/25 03:15 Pantoprazole Sodium 40 mg BID PO 09/16/25 10:00 09/17/25 10:40 40 MG Sucralfate 1 gm QID PO 09/16/25 06:00 09/17/25 12:15 1 GM Thiamine HCl 100 mg DAILY PO 09/16/25 10:00 09/17/25 10:40 100 MG Insulin Glargine 15 units Q12H SC 09/16/25 22:00 09/17/25 10:43 15 UNITS Dextrose 1,000 ml @ 50 mls/hr Q20H IV 09/16/25 15:00 09/16/25 15:15 50 MLS/HR objective Moderately built and well nourished thin male HEENT examination no pallor no icterus Lungs are clear Vascular unremarkable Abdomen soft no tenderness no rigidity no guarding Extremities no edema no varicosities Neurological no focal deficits laboratory and microbiology Laboratory Tests 09/17/25 05:30 Test 09/17/25 05:30 Range/Units Serum Glucose 88 74-106 mg/dL Problems(with codes): (1) DKA (diabetic ketoacidosis) (2) Hiatal hernia with GERD and esophagitis (3) Intractable vomiting Prognosis Plan Treat conservatively at this time Protonix 40 mg IV q.12 hours Zofran as needed for nausea and vomiting Carafate 1 g p.o. 4 times a day Lifestyle and dietary modifications for GERD Outpatient follow up with GI Services upon discharge for ongoing GI management Dietary Evaluation Review Comments: Nutrition Recommendation 1) Advance to [facility] 60gm soft diet as medically feasible 2) Refer Groundskeeper Supervisor for diabetes education 3) Monitor PO intake, lab values, weight trend, and I/O Expected Outcomes/Goals: Lab values to improve Fu 3-5 days Plan discussed with: Other (Dr Campa) MARIO ALBERTO ZAPATA MD Sep 17, 2025 17:14
[2025-09-18] VITALS (8 sets, daily range): BP systolic 111–142; BP diastolic 49–94; PULSE 58–77; RESP 17–18; TEMP 96.6–98.5; O2SAT 96–98
[2025-09-18 06:10] LABS: Anion Gap 10 (5-15); Calcium 9.2 mg/dL (8.7-10.4); Carbon Dioxide 28 mmol/L (20-31); Chloride 103 mmol/L (98-107); Sodium 141 mmol/L (136-145)
[2025-09-18 06:16] LABS: BUN/Creatinine Ratio 19.0 (10.0-20.0); Blood Urea Nitrogen 11 mg/dL (9-23); Glucose 68 mg/dL (74-106); Magnesium 1.9 mg/dL (1.6-2.6); Potassium 3.1 mmol/L (3.5-5.1)
--- NOTE | 2025-09-18 09:58 | DVHPN2 ---
Subjective Better Less nausea and less vomiting Changes from previous H/P or p: Changes Eyes: No Pain, No Vision change, No Conjunctivae inflammation, No Eyelid inflammation, No Other, No Redness ENT: No Ear pain, No Ear discharge, No Nose pain, No Nose discharge, No Nose congestion, No Mouth pain, No Mouth swelling, No Throat pain, No Throat swelling, No Other Cardiovascular: No Chest Pain, No Palpitations, No Orthopnea, No Paroxysmal Noc. Dyspnea, No Edema, No Lt Headedness, No Other Respiratory: No Cough, No Dry, No Shortness of breath, No SOB with excertion, No Wheezing, No Hemoptysis, No Pleuritic Pain, No Sputum, No Other Gastrointestinal: Nausea, Vomiting, Abdominal Pain Genitourinary: No Dysuria, No Frequency, No Incontinence, No Hematuria, No Retention, No Other Musculoskeletal: No other, No neck pain, No shoulder pain, No arm pain, No back pain, No hand pain, No leg pain, No foot pain Skin: No Rash, No Lesions, No Jaundice, No Bruising, No Other Objective Vitals Vital Signs Date Time Temp Pulse Resp B/P (MAP) Pulse Ox O2 Delivery O2 Flow Rate FiO2 09/18/25 05:00 96.6 66 17 111/63 (79) 98 96.6 09/17/25 19:55 Room Air* 0 21 Intake/Output Intake and Output 09/18/25 07:00 Intake Total 1100 ml Output Total 2 ml Balance 1098 ml Intake Oral 1100 ml Output Urine Total 2 ml # Voids 2 # Bowel Movements 2 General Appearance: Alert, Oriented X3, Cooperative, No acute distress Lungs: Clear to auscultation Cardiovascular: Regular rate, Normal S1 Abdomen: Normal bowel sounds, Soft, No tenderness Extremities: No edema Medications Current Medications Medications Dose Ordered Sig/Anitha Route Start Time Stop Time Status Last Admin Dose Admin Metoclopramide HCl 10 mg Q4HP PRN IV 09/15/25 13:15 09/17/25 17:22 10 MG Ondansetron HCl 4 mg Q4HP PRN IV 09/15/25 13:15 09/16/25 15:20 4 MG Enoxaparin Sodium 40 mg DAILY SC 09/16/25 10:00 09/18/25 09:16 40 MG Nitroglycerin 0.4 mg Q5MINP PRN SL 09/15/25 13:15 Morphine Sulfate 2 mg Q30M PRN IV 09/15/25 13:15 Hydromorphone HCl 0.25 mg Q4HPRN PRN IV 09/15/25 13:45 09/15/25 14:29 0.25 MG Diagnostic Test (Pha) 1 strip IQ4HR 09/16/25 04:00 09/18/25 08:00 1 STRIP Insulin Human Regular IQ4HR SC 09/16/25 04:00 09/18/25 08:47 2 UNITS Dextrose 50 ml UD PRN IV 09/16/25 03:15 Pantoprazole Sodium 40 mg BID PO 09/16/25 10:00 09/18/25 09:16 40 MG Sucralfate 1 gm QID PO 09/16/25 06:00 09/18/25 05:53 1 GM Thiamine HCl 100 mg DAILY PO 09/16/25 10:00 09/18/25 09:16 100 MG Insulin Glargine 15 units Q12H SC 09/16/25 22:00 09/17/25 21:13 15 UNITS Dextrose 1,000 ml @ 50 mls/hr Q20H IV 09/16/25 15:00 09/18/25 05:53 50 MLS/HR Laboratory Results Laboratory Tests 09/17/25 05:30 09/18/25 04:43 Chemistry Test 09/18/25 04:43 Calcium Level 9.2 mg/dL (8.7-10.4) Magnesium Level 1.9 mg/dL (1.6-2.6) Urinalysis Test 09/15/25 11:26 Urine Color Light-yellow (Yellow) Urine Clarity Clear (Clear) Urine pH 5.5 (5.0-9.0) Urine Specific [place] 1.026 (1.001-1.035) Urine Protein Trace (Negative) H Urine Ketones 4+ (Negative) H Urine Blood Negative /uL (Negative) Urine Nitrite Negative (Negative) Urine Bilirubin Negative (Negative) Urine Urobilinogen Normal mg/dL (Negative) Urine Leukocyte Esterase Negative /uL (Negative) Urine RBC 1 /hpf (0 - 3) Urine Microscopic WBC < 1 /HPF (0-3) Urine Squamous Epithelial Cells None seen /hpf (<5) Urine Bacteria None seen /hpf (None Seen) Urine Glucose 4+ mg/dL (Normal) H Microbiology Microbiology Date/Time Source Procedure Growth Status 09/15/25 13:47 Blood Blood Culture - Preliminary NO GROWTH AFTER 48 HOURS OF INCUBATION. Resulted Assessment/Plan Assessment/Plan Acute DKA Type 2 Diabetes, uncontrolled DEE due to VMN h/o erosive esophagitis No UTI No sepsis Hypokalemia PLAN: Clear liquids IV fluids D5W Sliding scale insulin Continue Protonix and Carafate Monitor closely 09/17/2025: Advance diet Continue IV fluids and sliding scale Hypokalemia: Replace potassium 09/18/2025: Hypokalemia: Replace Advance diet as tolerated Discontinue IV fluids Watch closely Plan discussed with: Patient My Orders Orders - ZULEYKA MELARA MD Procedure Category Date Status Time Consistent DIET 09/18/25 Transmitted Carb(Ccho)Diabetes Breakfast Date of Service: Sep 18, 2025 Billing Provider: ZULEYKA MELARA MD Common Visit Codes: [id number] INP/OBS CARE(HIGH) ZULEYKA MELARA MD Sep 18, 2025 09:58
[2025-09-18] MEDS: POTASSIUM CHL 20 Meq TABLET PO ONE (12:25)
--- NOTE | 2025-09-18 14:57 | DVHPN2 ---
Progress Note - Dictate Date Seen: Sep 18, 2025 Medical Necessity Reason Pt with a Central, PICC or Fol: No Subjective No new complaints Patient has mild nausea Patient is resting comfortably I have reviewed his last endoscopy done on July 2024 Patient had a hiatal hernia with erosive esophagitis with overlying eschar and ulceration vital signs Vital Sign Date Time Temp Pulse Resp B/P (MAP) Pulse Ox O2 Delivery O2 Flow Rate FiO2 09/18/25 09:00 98.5 63 18 128/89 (102) 97 98.5 09/18/25 08:00 Room Air* 0 21 Total Intake and Output 09/17/25 09/17/25 09/18/25 15:00 23:00 07:00 Intake Total 800 ml 300 ml Output Total 2 ml Balance 800 ml 298 ml medications Current Medications Medications Dose Ordered Sig/Anitha Route Start Time Stop Time Status Last Admin Dose Admin Metoclopramide HCl 10 mg Q4HP PRN IV 09/15/25 13:15 09/17/25 17:22 10 MG Ondansetron HCl 4 mg Q4HP PRN IV 09/15/25 13:15 09/16/25 15:20 4 MG Enoxaparin Sodium 40 mg DAILY SC 09/16/25 10:00 09/18/25 09:16 40 MG Nitroglycerin 0.4 mg Q5MINP PRN SL 09/15/25 13:15 Morphine Sulfate 2 mg Q30M PRN IV 09/15/25 13:15 Hydromorphone HCl 0.25 mg Q4HPRN PRN IV 09/15/25 13:45 09/15/25 14:29 0.25 MG Diagnostic Test (Pha) 1 strip IQ4HR 09/16/25 04:00 09/18/25 12:12 1 STRIP Insulin Human Regular IQ4HR SC 09/16/25 04:00 09/18/25 12:26 12 UNITS Dextrose 50 ml UD PRN IV 09/16/25 03:15 Pantoprazole Sodium 40 mg BID PO 09/16/25 10:00 09/18/25 09:16 40 MG Sucralfate 1 gm QID PO 09/16/25 06:00 09/18/25 12:25 1 GM Thiamine HCl 100 mg DAILY PO 09/16/25 10:00 09/18/25 09:16 100 MG Insulin Glargine 15 units Q12H SC 09/16/25 22:00 09/18/25 12:25 15 UNITS objective Moderately built and well nourished thin male HEENT examination no pallor no icterus Lungs are clear Vascular unremarkable Abdomen soft no tenderness no rigidity no guarding Extremities no edema no varicosities Neurological no focal deficits laboratory and microbiology Laboratory Tests 09/18/25 04:43 09/17/25 05:30 Test 09/18/25 04:43 Range/Units Serum Glucose 68 L 74-106 mg/dL Problems(with codes): (1) Hiatal hernia with GERD and esophagitis (2) Intractable vomiting (3) DKA (diabetic ketoacidosis) (4) Dehydration Prognosis Plan Advance diet as tolerated Protonix 40 mg p.o. twice a day Carafate 1 g p.o. twice a day Outpatient follow up with me as needed Discharge planning as per hospitalist Dietary Evaluation Review Comments: Nutrition Recommendation 1) Advance to [facility] 60gm soft diet as medically feasible 2) Refer Corporate Events Director for diabetes education 3) Monitor PO intake, lab values, weight trend, and I/O Expected Outcomes/Goals: Lab values to improve Fu 3-5 days Plan discussed with: Patient, Other (Dr Norris) MARIO ALBERTO ZAPATA MD Sep 18, 2025 14:57
[2025-09-19 05:00] VITALS: BP 123/78; PULSE 69; RESP 17; TEMP 97.6; O2SAT 98
[2025-09-19 08:00] VITALS: PULSE 61; PULSE 65; RESP 18; O2SAT 98
[2025-09-19] MEDS ORDERED: INSUINJ37 SC (08:58)
[2025-09-19] MEDS ORDERED: PANT40TA2 PO (08:58)
[2025-09-19] MEDS ORDERED: SUCR1TAB31 OR (08:58)
[2025-09-19 09:00] VITALS: BP 126/85; PULSE 65; RESP 18; TEMP 97.4; O2SAT 99
--- NOTE | 2025-09-19 09:01 | DVHDS2 ---
Discharge Summary Date of Admission Sep 15, 2025 at 13:02 Date of Discharge: Sep 19, 2025 Labs/Diagnostic Data: Laboratory Results Test 09/19/25 07:50 09/19/25 00:52 09/18/25 04:43 09/17/25 05:30 POC Glucose 153 mg/dl (70-106) Magnesium Level 1.9 mg/dL (1.6-2.6) White Blood Count 11.0 10^3/uL (4.4-10.8) Red Blood Count 4.99 10^6/uL (4.5-5.90) Hemoglobin 14.8 g/dL (13.5-17.5) Hematocrit 43.0 % (41.0-53.0) Mean Corpuscular Volume 86.2 fL (80.0-100.0) Mean Corpuscular Hemoglobin 29.6 pg (28.0-32.0) Mean Corpuscular Hemoglobin Concent 34.4 g/dL (32.0-36.0) Red Cell Distribution Width 13.0 % (11.8-14.3) Platelet Count 226 10^3/uL (140-450) Mean Platelet Volume 7.8 fL (6.9-10.8) Neutrophils (%) (Auto) 69.4 % (37.0-80.0) Lymphocytes (%) (Auto) 20.9 % (10.0-50.0) Monocytes (%) (Auto) 7.8 % (0.0-12.0) Eosinophils (%) (Auto) 1.4 % (0.0-7.0) Basophils (%) (Auto) 0.5 % (0.0-2.0) Neutrophils # (Auto) 7.7 10 ^3/uL (1.6-8.6) Lymphocytes # (Auto) 2.3 10 ^3/uL (0.4-5.4) Monocytes # (Auto) 0.9 10 ^3/uL (0-1.3) Eosinophils # (Auto) 0.2 10 ^3/uL (0-0.8) Basophils # (Auto) 0.1 10 ^3/uL (0-0.2) Nucleated Red Blood Cells 0.1 % Total Bilirubin 0.9 mg/dL (0.2-1.0) Aspartate Amino Transferase (AST) 37 U/L (13-40) Alanine Aminotransferase (ALT) 47 U/L (7-40) Alkaline Phosphatase 83 U/L (46-116) Total Protein 7.3 g/dL (5.7-8.2) Albumin 4.0 g/dL (3.2-4.8) Test 09/16/25 14:34 09/15/25 19:38 09/15/25 13:49 09/15/25 13:19 Free Prostate Specific Antigen 0.16 ng/mL (N/A) Percent Free Prostate Specific Ag 26.7 % (.) Prostate Specific Antigen Total 0.6 ng/mL (0.0-4.0) Blood Gas Specimen Type Venous Blood Gas Sample Site Vbg - n/a Blood Gas Patient Temperature 37.0 Arterial Blood Date Drawn [id number] Walker Test N/a Venous Blood pH 7.129 (7.320-7.430) Venous Blood pCO2 at Patient Temp 38.9 mmHg (38.0-54.0) Venous Blood pO2 at Patient Temp < 36.5 mmHg (23.0-48.0) Venous Blood HCO3 12.6 mmol/L (22.0-29.0) Venous Blood Base Excess -15.9 mmol/L (-2.0-3.0) Blood Gas Modality Room air FiO2 % 21.0 Blood Gas Critical Value Read Back Yes Blood Gas Notified Whom Oni rosenthal np Blood Gas Notified Time [id number] Blood Gas Notified By Ryan gerber day care provider Lipase 22 U/L (12-53) Vitamin B12 Level 1227 pg/mL (211-911) Folic Acid > 24.00 ng/mL (>5.38) Thyroid Stimulating Hormone (TSH) 0.43 uIU/mL (0.55-4.78) Free Thyroxine (T4) Calculated 1.19 ng/dL (0.89-1.76) Free Triiodothyronine (T3) pg/mL 2.15 pg/mL (2.3-4.2) Lactic Acid Level 2.0 mmol/L (0.4-2.0) Test 09/15/25 13:02 09/15/25 11:35 09/15/25 11:26 09/15/25 11:11 Urine Opiates Screen Neg (NEGATIVE) Urine Fentanyl Screen Neg (NEGATIVE) Urine Barbiturates Screen Neg (NEGATIVE) Urine Phencyclidine Screen Neg (NEGATIVE) Urine Amphetamines Screen Neg (NEGATIVE) Urine Benzodiazepines Screen Neg (NEGATIVE) Urine Cocaine Screen Neg (NEGATIVE) Urine Cannabinoids Screen Neg (NEGATIVE) Hemoglobin A1c 11.5 % A1C (<5.7) Serum Osmolality 333 mOsm/kg (278-298) Phosphorus Level 4.0 mg/dL (2.4-5.1) Triglycerides Level 872 mg/dL (< 150) Cholesterol Level 319 mg/dL (< 200) LDL Cholesterol mg/dL (< 100) HDL Cholesterol 40 mg/dL (40-59) Beta-Hydroxybutyric Acid > 4.500 mmol/L (< 0.4) Urine Color Light-yellow (Yellow) Urine Clarity Clear (Clear) Urine pH 5.5 (5.0-9.0) Urine Specific [place] 1.026 (1.001-1.035) Urine Protein Trace (Negative) Urine Ketones 4+ (Negative) Urine Blood Negative /uL (Negative) Urine Nitrite Negative (Negative) Urine Bilirubin Negative (Negative) Urine Urobilinogen Normal mg/dL (Negative) Urine Leukocyte Esterase Negative /uL (Negative) Urine RBC 1 /hpf (0 - 3) Urine Microscopic WBC < 1 /HPF (0-3) Urine Squamous Epithelial Cells None seen /hpf (<5) Urine Bacteria None seen /hpf (None Seen) Urine Glucose 4+ mg/dL (Normal) Arterial Blood pH 7.188 (7.350-7.450) Arterial Blood Partial Pressure CO2 19.9 mmHg (35.0-48.0) Arterial Blood Partial Pressure O2 115.4 mmHg (83.0-108.0) Arterial Blood HCO3 7.4 mmol/L (21.0-28.0) Arterial Blood Oxygen Saturation 97.5 % (94.0-98.0) Arterial Blood Base Excess -18.4 mmol/L (-2.0-3.0) Arterial Blood Oxyhemoglobin 96.0 % (94.0-98.0) Arterial Blood Carboxyhemoglobin 0.9 % (0.5-1.5) Arterial Blood Methemoglobin 0.6 % (0.0-1.5) Blood Gas Total Hemoglobin 17.00 g/dL (13.5-17.5) Other Laboratory Tests 09/17/25 05:30 Brief Hx & Hospital Course: Final diagnoses: Acute DKA Type 2 Diabetes, uncontrolled DEE due to VMN h/o erosive esophagitis No UTI No sepsis Hypokalemia 45-year-old male who was admitted for nausea and vomiting and abdominal pain and he was found to have acute diabetic ketoacidosis which was controlled with IV insulin drip and afterwards was started on subcutaneous insulin and IV fluids He also has a history of erosive esophagitis so he was given Protonix and Carafate Dr. Ulysses Stafford has seen him before and therefore she recommended to continue the Protonix and Carafate Overall he is doing better now and his electrolytes are corrected, we will check his potassium today and corrected as needed and then the patient can be discharged home He will be given a prescription for Lantus 30 units twice a day which she takes at home Continue Protonix and Carafate He was educated about avoiding NSAIDs and caffeine and alcohol and smoking Follow up with his primary care physician as soon as possible Condition at Discharge: Stable Final Diagnosis/Problems List Acute DKA Type 2 Diabetes, uncontrolled DEE due to VMN h/o erosive esophagitis No UTI No sepsis Hypokalemia Discharge Disposition: Home SNF Discharge Will this Physician continue t: No Discharge Instruct/Medications Diet: Consistent carbohydrate Activity: No Restrictions, As Tolerated Follow Up/Referral: PCP JAMAL Medications: Lantus 30 units twice a day Protonix 40 mg twice a day Carafate 1 g twice a day Scheduled Insulin Glargine (Lantus Solostar), 30 UNIT SC BID Pantoprazole Sodium Sesquihydr (Protonix), 40 MG PO BID Sucralfate (Carafate), 1 GM OR BID Discharge Statement: "Patient was advised to return to the ER or call 911 if any headaches, dizziness, shortness of breath, chest pain, abdominal pain, bleeding, fevers, or worsening of medical condition. Patient was counseled about treatment plan, medications, possible side effects, patientverbalized understanding. All questions were answered to the best of my ability. This discharge took greater then 30 minutes in planning, reviewing documentation, counseling the patient, and discussing with other team members." ASSESSMENT ASSESSMENT Assessment Acute DKA Type 2 Diabetes, uncontrolled DEE due to VMN h/o erosive esophagitis No UTI No sepsis Hypokalemia Date of Service: Sep 19, 2025 Billing Provider: ZULEYKA MELARA MD Common Visit Codes: 83753-TOM/OBS DISCH DAY >30min ZULEYKA MELARA MD Sep 19, 2025 09:01
[2025-09-19 11:27] VITALS: TEMP 36.3
[2025-09-19 12:30] LABS: Chloride 105 mmol/L (98-107); Sodium 144 mmol/L (136-145)
[2025-09-19 12:31] LABS: Anion Gap 16 (5-15); Carbon Dioxide 23 mmol/L (20-31)
[2025-09-19 12:32] LABS: Calcium 9.2 mg/dL (8.7-10.4)
[2025-09-19 12:36] LABS: Glucose 83 mg/dL (74-106)
[2025-09-19 12:37] LABS: BUN/Creatinine Ratio 18.3 (10.0-20.0); Blood Urea Nitrogen 11 mg/dL (9-23)
[2025-09-19 13:27] LABS: Potassium 2.9 mmol/L (3.5-5.1)
== END 2025-09-19 13:43 | disposition home or self-care (01) | DRG 420 ==
LOC: ER 10:02 → OVERFLOW 13:02 → TELE-CENTR 09-16 22:05
PROVIDERS: ADMIT Internal Medicine Geriatric Medicine; ATTEND Internal Medicine Geriatric Medicine
DX: E11.10 Type 2 diabetes mellitus with ketoacidosis without coma (principal); N17.0 Acute kidney failure with tubular necrosis; E86.0 Dehydration; K52.9 Noninfective gastroenteritis and colitis, unspecified; K21.9 Gastro-esophageal reflux disease without esophagitis; K44.9 Diaphragmatic hernia without obstruction or gangrene; N40.1 Benign prostatic hyperplasia with lower urinary tract symptoms; R33.8 Other retention of urine; E87.6 Hypokalemia; Z87.19 Personal history of other diseases of the digestive system; Z82.49 Family history of ischemic heart disease and other diseases of the circulatory system; Z79.4 Long term (current) use of insulin
CPT/HCPCS: 36415; 36600; 71045; 74018; 74176; 80048; 80053; 80061; 80307; 81001; 82010; 82607; 82746; 82805; 82962; 83036; 83605; 83690; 83735; 83930; 84100; 84154; 84439; 84443; 84481; 85025; 87040; 96374; 96375; G0378; J1815; J2405; J2470; J2543